=== PATIENT | female | born 1940 | race Caucasian/White ===

== ENCOUNTER 2019-10-25 20:19 | Inpatient (IN) | payer MEDICARE, BC ==
[2019-10-25] VITALS (8 sets, daily range): BP systolic 160–201; BP diastolic 59–71
[~2019-10-25] VITALS: Ht 157.5 cm; Wt 64.1 kg
--- NOTE | 2019-10-25 21:27 | NUR ---
PT GIVEN THIS NITRO AT 2111 WHEN [employer] WAS DOWN.
[2019-10-25 21:38] LABS: CALC OSMOLALITY 300 mosm/kg (275-300); CALCIUM 8.1 mg/dL (8.5-10.1); CARBON DIOXIDE 25.9 mmol/L (21.0-32.0); CHLORIDE - SERUM 110 mmol/L (98-107); CREATININE - SERUM 2.3 mg/dL (0.6-1.3); GLUCOSE 86 mg/dL (74-106); POTASSIUM - SERUM 3.8 mmol/L (3.5-5.1); SODIUM 145 mmol/L (136-145); UREA NITROGEN 49 mg/dL (7-18); eGFR NON AFRICAN AMERICAN 22 mL/min (90-120)
[2019-10-25 21:39] LABS: APTT 27.7 SECONDS (22.8-39.4); INR 0.99 (0.85-1.17)
[2019-10-25 21:55] LABS: ALKALINE PHOSPHATASE 26 U/L (30-120); ALT (SGPT) 25 U/L (10-68); BILIRUBIN - TOTAL 0.14 mg/dL (0.2-1.3); CKMB 2.4 U/L (0.0-3.6); CREATINE KINASE 170 UL (21-215); MAGNESIUM - SERUM 1.8 mg/dL (1.8-2.4); TROPONIN-I 0.041 ng/mL (0.000-0.060)
[2019-10-25 21:56] LABS: BASOPHILS 0.4 % (0-2); EOSINOPHILS 1.4 % (0-7); HEMATOCRIT 27.4 % (36.0-48.0); HEMOGLOBIN 9.2 g/dL (12-16); IMMATURE GRANULOCYTES 0.2 % (0-5); MCH 31.3 pg (26.0-34.0); MCHC 33.6 g/dL (31.0-37.0); MCV 93.2 fL (80.0-100.0); MEAN PLATELET VOLUME 9.6 fL (7.4-10.4); MONOCYTES 7.7 % (2-11); NEUTROPHILS 62.3 % (40-80); PLATELET COUNT 280 10x3/uL (130-400); RBC 2.94 10x6/uL (4.00-5.40); RDW 13.9 % (11.5-14.5)
[2019-10-25] MEDS ORDERED: HYDRALAZINE HCL50 MG PO (22:10)
[2019-10-25] MEDS ORDERED: NORVASC10 MG PO (22:11)
[2019-10-25] MEDS ORDERED: LYRICA75 MG PO (22:11)
[2019-10-25] MEDS ORDERED: LIPITOR20 MG PO (22:11)
[2019-10-25] MEDS ORDERED: ZYLOPRIM300 MG PO (22:12)
[2019-10-25] MEDS ORDERED: HCTZ25 MG PO (22:12)
[2019-10-25] MEDS ORDERED: NOVOLOG100 UNIT/1 SC (22:12)
[2019-10-25] MEDS ORDERED: ASPIRIN EC81 M1 PO (22:13)
[2019-10-25] MEDS ORDERED: FER-IN-SOL DROP50 ML PO (22:13)
[2019-10-25] MEDS ORDERED: BASAGLAR K100 UNIT/1 SC (22:13)
--- NOTE | 2019-10-25 23:27 | NUR ---
PT SLEEPING. THIS NURSE WITNESSING APNIC EPISODES.
[2019-10-26] VITALS (7 sets, daily range): BP systolic 132–206; BP diastolic 52–70; Ht 157.5 cm; Wt 64.1 kg
[2019-10-26] MEDS ORDERED: ACETAMINOPHEN325 MG PO (02:15)
--- NOTE | 2019-10-26 02:55 | NUR ---
RECEIVED REPORT FROM KYLIE PIERRE IN ER AT 0150. ARRIVED TO FLOOR AT 0207 WITH DTR. ALERT AND ORIENTED TO PERSON . LIVES WITH DTR. DTR ANSWERED QUESTIONS ON MEDICATION AND HISTORY. DTR TO STAY IN ROOM WITH MOTHER. IV TO RIGHT HAND SL.. LEFT ARM RESERVED D/T SUBCLAVIAN BLOCKAGE PER DTR. NPO AT THIS TIME PER PROTOCOL. CARDIO CONSULT TOMORROW. DENIES ANY NEEDS AT THIS TIME.
[2019-10-26 07:45] LABS: HEMATOCRIT 26.9 % (36.0-48.0); HEMOGLOBIN 8.9 g/dL (12-16)
[2019-10-26 07:57] LABS: % SATURATION 21 % (15-55); IRON 46 ug/dl (35-150); TOTAL IRON BIND CAPACITY 211 ug/dl (260-445); UNSAT IRON BIND CAPACITY 165 ug/dl (150-375)
--- NOTE | 2019-10-26 08:06 | NUR ---
PT SITTING UP IN BED. PT STATES SHE HAS NO FURTHER NEEDS AT THIS TIME. BED LOW. CL IN REACH. WILL CONTINUE WITH POC.
[2019-10-26 08:20] LABS: CREATINE KINASE 109 UL (21-215); FERRITIN 112 ng/mL (3-244)
--- NOTE | 2019-10-26 10:30 | NUR ---
HAT PLACED IN COMMODE TO COLLECT STOOL SPECIMEN. EXPLAINED TO PT AND PT'S DAUGHTER AND THEY BOTH VERBALIZED UNDERSTANDING.
[2019-10-26 11:36] LABS: CKMB 2.5 U/L (0.0-3.6); CREATINE KINASE 113 UL (21-215); TROPONIN-I 0.048 ng/mL (0.000-0.060)
--- NOTE | 2019-10-26 11:42 | NUR ---
PT'S P 206/70. PAGED KIRTI SHEARER.
--- NOTE | 2019-10-26 11:43 | NUR ---
PT'S BP 206/70. PAGED KIRTI SHEARER.
--- NOTE | 2019-10-26 11:47 | NUR ---
SPOKE WITH KIRTI SHEARER ABOUT PT'S NISSA AND SHE STATES SHE'LL PUT IN ORDERS FOR IV HYDRALAZINE.
[2019-10-26 13:06] LABS: HEMATOCRIT 29.4 % (36.0-48.0); HEMOGLOBIN 9.7 g/dL (12-16)
--- NOTE | 2019-10-26 17:16 | NUR ---
RESTS IN BED WITH FAMILY AT BS. CALL LIGHT IN REACH. WILL CONT. PLAN OF CARE.
[2019-10-26 19:25] LABS: HEMATOCRIT 28.8 % (36.0-48.0); HEMOGLOBIN 9.5 g/dL (12-16)
[2019-10-27] VITALS (13 sets, daily range): BP systolic 98–194; BP diastolic 47–77
--- NOTE | 2019-10-27 02:30 | NUR ---
PTS DAUGHTER ASSISTED PT TO RESTROOM BUT FORGOT WE NEEDED A URINE SAMPLE. REMINDED HER TO LET US KNOW NEXT TIME SHE VOIDS AND WE WILL COME IN TO COLLECT THE SAMPLE. VERBALIZED UNDERSTANDING.
[2019-10-27 05:12] LABS: BASOPHILS 0.2 % (0-2); EOSINOPHILS 1.5 % (0-7); HEMATOCRIT 28.7 % (36.0-48.0); HEMOGLOBIN 9.5 g/dL (12-16); IMMATURE GRANULOCYTES 0.4 % (0-5); LYMPHOCYTES 28.5 % (15-50); MCHC 33.1 g/dL (31.0-37.0); MCV 93.8 fL (80.0-100.0); MEAN PLATELET VOLUME 9.7 fL (7.4-10.4); MONOCYTES 6.3 % (2-11); NEUTROPHILS 63.1 % (40-80); PLATELET COUNT 283 10x3/uL (130-400); RBC 3.06 10x6/uL (4.00-5.40); WBC 8.2 10x3/uL (4.8-10.8)
[2019-10-27 05:41] LABS: ANION GAP 13.5 mmol/L (8-16); CALCIUM 8.3 mg/dL (8.5-10.1); CARBON DIOXIDE 24.4 mmol/L (21.0-32.0); CREATININE - SERUM 2.3 mg/dL (0.6-1.3); MAGNESIUM - SERUM 1.9 mg/dL (1.8-2.4); POTASSIUM - SERUM 3.9 mmol/L (3.5-5.1)
--- NOTE | 2019-10-27 07:30 | NUR ---
A/A/OX4. DENIES ANY PAIN OR NEEDS AT PRESENT TIME AND NO REQUESTS VOICED. SL TO RIGHT HAND AND PATENT WITHOUT REDNESS OR EDEMA AT SITE. ASSESSMENT COMPLETED AND WILL CONTINUE POC.
[2019-10-27 13:23] LABS: HEMATOCRIT 29.3 % (36.0-48.0); HEMOGLOBIN 9.7 g/dL (12-16)
--- NOTE | 2019-10-27 14:12 | NUR ---
REPORT CALLED TO EMILIA IN ICU AND PT TRANSERRED PER W/C TO ROOM 2310. FAMILY MEMBER WITH HER. ALL PERSONAL BELONGINGS MOVED WITH HER.
--- NOTE | 2019-10-27 15:00 | NUR ---
REPORT RECIEVED FROM THE FLOOR. PT HOOKED TO ICU MONITORS. SBP 160. DR WYLIE STATED TO START CARDENE. DENIES PAIN. CALL LIGHT IN REACH. WILL CONT POC.
--- NOTE | 2019-10-27 18:10 | NUR ---
PT LEFT FOR MRI. LEFT IN A STABLE CONDITION.
[2019-10-27 19:49] LABS: HEMATOCRIT 29.6 % (36.0-48.0); HEMOGLOBIN 9.7 g/dL (12-16)
[2019-10-28] VITALS (45 sets, daily range): BP systolic 136–179; BP diastolic 37–75
--- NOTE | 2019-10-28 03:04 | NUR ---
PT HAVING RUNS OF SINUS TACH ON THE MONITOR, WILL CONTINUE TO CLOSELY MONITOR
--- NOTE | 2019-10-28 03:19 | NUR ---
PATIENT RESTING COMFORTABLY - REASSESSMENT COMPLETED SEE FLOWSHEET
[2019-10-28 04:13] LABS: BASOPHILS 0.3 % (0-2); EOSINOPHILS 2.9 % (0-7); HEMATOCRIT 29.3 % (36.0-48.0); HEMOGLOBIN 9.6 g/dL (12-16); IMMATURE GRANULOCYTES 0.4 % (0-5); LYMPHOCYTES 24.9 % (15-50); MCHC 32.8 g/dL (31.0-37.0); MCV 94.5 fL (80.0-100.0); MEAN PLATELET VOLUME 9.6 fL (7.4-10.4); MONOCYTES 7.8 % (2-11); NEUTROPHILS 63.7 % (40-80); PLATELET COUNT 300 10x3/uL (130-400); RDW 13.8 % (11.5-14.5)
[2019-10-28 06:07] LABS: ANION GAP 15.2 mmol/L (8-16); CALCIUM 8.3 mg/dL (8.5-10.1); CARBON DIOXIDE 22.6 mmol/L (21.0-32.0); CREATININE - SERUM 2.8 mg/dL (0.6-1.3); MAGNESIUM - SERUM 1.9 mg/dL (1.8-2.4); POTASSIUM - SERUM 3.8 mmol/L (3.5-5.1)
--- NOTE | 2019-10-28 06:17 | NUR ---
PT SET UP AND INSTRUCTED ON HOW TO GIVE SELF CHG BATH. BEDPAN PROVIDED PRIOR TO BATH. PATIENT INDENPENDENT ADLS. PROVIDED A FRESH DRINKING WATER PER REQUEST. VSS CPOC
--- NOTE | 2019-10-28 08:29 | NUR ---
0700 PT RECIEVED ALERT AND ORIENTED ON ROOM AIR R HAND PIV WITH NS AND CARDENE INFUSING, DENIES PAIN AND ALL NEEDS 0820 AM MEDS GIVEN, BREAKFAST PROVIDED, WILL CONTINUE TO MONITOR
--- NOTE | 2019-10-28 09:20 | NUR ---
SPOKE WITH CHINYERE PATEL ABOUT BRADYCARDIA AND LOPRESSOR, DOSE ON LOPRESSOR CHANGED AND GIVEN WITH HR IN 50S PER CHINYERE
--- NOTE | 2019-10-28 12:22 | NUR ---
NUTRITION F/U PT SITTING UP IN BED EATING LUNCH. REPORTS GOOD APPETITE AND PO INTAKE. WILL CONTINUE TO PROVIDE RENAL ADA DIET, MONITOR INTAKE. RD FOLLOWING
[2019-10-28 13:03] LABS: HEMATOCRIT 28.8 % (36.0-48.0); HEMOGLOBIN 9.5 g/dL (12-16)
--- NOTE | 2019-10-28 14:36 | CN ---
PATIENT NAME:MARY MABRY MEDICAL RECORD: [id number] : 36 LOCATION:NEWD.2310 ADMIT DATE: 10/27/19 ACCOUNT: [id number] CONSULTING PHYSICIAN: SARAY PATEL MD REFERRING PHYSICIAN: RIMA WYLIE MD DATE OF CONSULTATION: 10/26/2019 CARDIOLOGY CONSULTATION ADMITTING DIAGNOSES: 1. Chest pain. 2. Hypertension. 3. Tachycardia. 4. Diabetes. 5. Hyperlipidemia. 6. Dementia. HISTORY OF PRESENT ILLNESS: Mrs. Mabry was brought in by her family for chest pain. She has had a history of chest pain. She had a normal cardiac catheterization within the last year in [place], which is where she was previously from, she is now relocated to be by her daughter here in [place]. She has been markedly hypertensive and tachycardic with systolic blood pressure in the 180-200 range and heart rates in the 100 range. She is on Norvasc and hydralazine for blood pressure. PHYSICAL EXAMINATION: CONSTITUTIONAL/GENERAL APPEARANCE: Well nourished, well developed, appears stated age. EYES: Lids and conjunctivae noninjected. No discharge. No pallor. ENT: Lips within normal limit. No cyanosis. No pallor. NECK: Carotid arteries, bilateral normal upstroke. No bruits. No thrills. No jugular venous pressure or distention. CERVICAL LYMPH NODES: Nontender. Nonenlarged. THYROID: Not enlarged. No nodules. CARDIOVASCULAR: Precordial exam, nondisplaced. No heaves or pericardial thrills. Rate and rhythm, regular. Heart sounds, normal S1, normal S2. No S3, no gallop, no rub. Systolic murmur, not heard. Diastolic murmur, not heard. RESPIRATORY: Respiratory effort, unlabored. Normal curvature. No thoracic deformity. No chest wall tenderness. Percussion, resonant. Auscultation, clear. No wheezes, no rales, no rhonchi. ABDOMEN: Soft, nondistended, nontender. No abdominal pain, no vomiting and normal appetite. MUSCULOSKELETAL: No joint tenderness, normal gait, normal tone. SKIN: Warm and dry. OVERALL IMPRESSION: Chest pain, normal troponin, normal EKG, normal cardiac catheterization within the past year. This is all secondary to out of control hypertension. She needs a beta kye to control the heart rate and blood pressure. We will start Lopressor 100 mg b.i.d. Only cardiac workup will be an echocardiogram. Further care depends upon the results with the beta kye. TRANSINT:[id number] Voice Confirmation ID: [id number] DOCUMENT ID: [id number] CONSULT REPORT [id number] MARY MABRY JEFFREY MD at 1436 CC: [id number] DICTATION DATE: 10/26/19 08 CABLE DISPATCHER: 10/26/19 1311 ADM IN [facility] [address] [place] [address]
--- NOTE | 2019-10-28 14:36 | EC ---
PATIENT:MARY MABRY DATE OF SERVICE: 10/26/19 SEX: F MEDICAL RECORD: [id number] DATE OF : 36 LOCATION:[facility] D231 AGE OF PATIENT: 79 ADMISSION DATE: 10/27/19 REFERRING PHYSICIAN: INTERPRETING PHYSICIAN: SARAY VALLE MD ECHOCARDIOGRAM REPORT ECHO CHARGES 4 ECHO COMPLETE Date: 10/26/19 CLINICAL DIAGNOSIS: CP ECHOCARDIOGRAPHIC MEASUREMENTS (adult normal given) AC root (d.<3.7cm) 3.4 cm LV Septum d (<1.2 cm> 1.7 cm Valve Excursion 2.0 cm LV Septum (systole) 2.3 cm Left Atria (s.<4.0cm> 4.5 cm LVPW d(<1.2cm) 1.6 cm RV (d.<2.3cm) 2.4 cm LVPW (sytole) 2.3 cm LV diastole(<5.6CM) 4.6 cm MV E-F(>70mm/sec) cm LV systole 2.1 cm LVOT Diameter 1.8 cm MV exc.(>10mm) cm Est.ejection fraction (50-75%) % DOPPLER: LVIT cm/sec A 165 cm/sec E 136 cm/sec LA cm/sec RVSP 33.0 mmHg LVOT 107 cm/sec AOP1/2T m/s Asc. Ao 146 cm/sec RVOT 91.0 cm/sec RA cm/sec PA 107 cm/sec AV Gradient Peak 8.5 mmHg AV Mean 4.5 mmHg AV Area 1.5 cm MV Gradient Peak 12.0 mmHg MV Mean 2.8 mmHg MV Area cm COMMENTS: Pastrycook'S Assistant: 1 JENN JOHNSONOE Bearing Inspector: 1 Dr. Valle TAPE# PACS Pericardial Effusion N DATE OF SERVICE: 10/26/2019 PROCEDURE: Echocardiogram. FINDINGS: 1. Left ventricular chamber size is within normal limits. Left ventricular systolic function is normal. Overall ejection fraction estimated at 60%. 2. Left atrium is enlarged at 4.5 cm. Right atrium and right ventricle chamber sizes are within normal limits. 3. Valvular structures have normal structure and motion. ECHOCARDIOGRAM REPORT [id number] MARY MABRY 4. Doppler interrogation reveals mild mitral regurgitation, mild tricuspid regurgitation, no other valvular insufficiency or stenosis. Pulmonary systolic pressure estimated at 34 mmHg. 5. No evidence of pericardial effusion or left ventricular thrombus. TRANSINT:[id number] Voice Confirmation ID: [id number] DOCUMENT ID: [id number] SARAY VALLE MD at 1436 CC: [id number] DICTATION DATE: 10/26/19 1540 DIRECTOR PAID MEDIA: 10/26/19 1651 ADM IN [facility] [address] [place] [address]
--- NOTE | 2019-10-28 15:06 | NUR ---
AWAITING CARDENE FROM PHARMACY
--- NOTE | 2019-10-28 15:24 | NUR ---
PT ARRIVED FROM ER SEDATED ON VENT ETT 7.5 24 AT [facility] R CHEST INFUSAPORT DRESSING CDI WITH PROPOFOL 20MCG INFUSING, L AC PIV SL, WHITE CATH DRAINING YELLOW URINE, DR WYLIE AWARE OF PTS ARRIVAL DR VELASCO AWARE OF CONSULT
--- NOTE | 2019-10-28 16:59 | NUR ---
PT USING BEDPAN AND PULLED OUT IV, 22G PIV TO R WRIST INSERTED X1 ATTEMPT
--- NOTE | 2019-10-28 18:15 | NUR ---
SPOKE WITH DR WYLIE ABOUT BPS AFTER STOPPING CARDENE GTT, STATED BP WAS OK IN 150-160S AND TO NOT GIVE PRN BP MEDS OR RESTART CARDENE AND TO CALL TONIGHT IF BP STAYS ELEVATED
--- NOTE | 2019-10-28 19:10 | NUR ---
PT C/O BACK PAIN, SEE EMAR FOR PAIN SCALE, REPOSITONED FOR COMFORT. NOTICED INCREASED ANXIETY AND AGITATION. HX OF DEMENTIA, PT UNABLE TO STATE NEEDS JUST REPEATS "I DONT KNOW' OVER AND OVER, SHIFT ASSESSMENT COMPLETED SYSTOLIC BP 160 NOTED. WILL CONTINUE TO MONITOR
--- NOTE | 2019-10-28 19:22 | NUR ---
PRN TYLENOL GIVEN AT THIS TIME
--- NOTE | 2019-10-28 20:04 | MORECARE ---
CASE MANAGEMENT DISCHARGE SUMMARY PATIENT: MARY MABRY UNIT: [id number] ADM DATE: 10/27/19 AGE: 79 : 38 SEX: F ROOM/BED: D.2310 AUTHOR: ANH LEE PHYSICIAN: REFERRING PHYSICIAN: RIMA WYLIE MD DATE OF SERVICE: 10/28/19 Discharge Plan Patient Name: MARY MABRY Facility: [facility]:[place] : 1940 Planned Disposition: Anticipated Discharge Date: Discharge Date: Expected LOS: Initial Reviewer: [email or web address] Initial Review Date: 10/28/2019 Generated: 10/28/19 9:03 pm Coverage Notice Reviewer: [email or web address] Rachael Headley Notice Issued Date-Time: 10/26/2019 9:50 Notice Type: Medicare Outpatient Observation Notice Notice Delivered To: Patient Relationship to Patient: Slice Cutting Machine Operator Helper Name: Delivery Method: HAND - Hand Delivered Cadence Days: Prior Verbal Notification: Recipient Understood Notice: Yes Recipient Signature: Yes Med Rec Note Co-signed by Attending: Coverage Notice Comment: LIGHT SERVED, EXPLAINED, SIGNED BY PATIENT AND ORIGINAL PROVIDED AND COPY PLACED ON CHART. Patient Name: MARY MABRY Page [phone] at 2004 All edits/amendments must be made on the electronic document DICTATION DATE: 10/28/192003 SALES APPLICATIONS ENGINEER: RAUL 10/28/192003 RPT#: [id number] DC DATE: STATUS: ADM IN [facility] [address] [place] [address] END OF REPORT
--- NOTE | 2019-10-28 20:11 | MORECARE ---
CASE MANAGEMENT DISCHARGE SUMMARY PATIENT: MARY MABRY UNIT: [id number] ADM DATE: 10/27/19 AGE: 79 : 38 SEX: F ROOM/BED: D.2310 AUTHOR: JESUS,DOC PHYSICIAN: REFERRING PHYSICIAN: RIMA WYLIE MD DATE OF SERVICE: 10/28/19 Discharge Plan Patient Name: MARY MABRY Facility: [facility]:[place] : 1940 Planned Disposition: Anticipated Discharge Date: Discharge Date: Expected LOS: Initial Reviewer: [email or web address] Initial Review Date: 10/28/2019 Generated: 10/28/19 9:11 pm Comments DCP- Discharge Planning Updated by [email or web address]: Shannon Singleton on 10/28/19 7:[address] Patient Name: MARY MABRY Admission Status: ER Accout number: [id number] Admission Date: 10-27-2019 : 1940 Admission Diagnosis: Attending: RIMA WYLIE Current LOS: 1 Anticipated DC Date: Planned Disposition: Primary Insurance: MEDICARE A & B Discharge Planning Comments: CM met with patient to complete initial dc planning assessment. CM educated patient on the CM role and verbal consent given by patient to complete assessment. Patient lives at home with her daughter where she is independent with her care. At discharge patient plans to return home and feels this is a safe discharge. CM discussed availability of home health, rehab services, and medical equipment. Her daughter will be her stacker driver home. Patient denied known discharge needs at this time. CM will continue to follow and will assist as needed with dc plans/needs. National Secretary: Shannon Singleton DCPIA - Discharge Planning Initial Assessment Updated by [email or web address]: Shannon Singleton on 10/28/19 8:04 pm * Is the patient Alert and Oriented? Yes * How many steps to enter\exit or inside your home? ramp * PCP [facility] * Pharmacy [facility] * Preadmission Environment Home with Family * ADLs Independent * Equipment Walker * List name and contact numbers for known caregivers / representatives who currently or will assist patient after discharge: APOLINAR SIFUENTES - DAUGHTER - [phone] * Verbal permission to speak to the caregivers and representatives has been obtained from the patient. Yes * Community resources currently utilized None * Additional services required to return to the preadmission environment? No * Can the patient safely return to the preadmission environment? Yes * Has this patient been hospitalized within the prior 30 days at any hospital? No Coverage Notice Reviewer: [email or web address] Rachael Headley Notice Issued Date-Time: 10/26/2019 9:50 Notice Type: Medicare Outpatient Observation Notice Notice Delivered To: Patient Relationship to Patient: Entry Level Administrative Assistant Name: Delivery Method: HAND - Hand Delivered Cadence Days: Prior Verbal Notification: Recipient Understood Notice: Yes Recipient Signature: Yes Med Rec Note Co-signed by Attending: Coverage Notice Comment: LIGHT SERVED, EXPLAINED, SIGNED BY PATIENT AND ORIGINAL PROVIDED AND COPY PLACED ON CHART. Last DP export: 10/28/19 7:04 p Patient Name: MARY MABRY Page [phone] at 2010 All edits/amendments must be made on the electronic document DICTATION DATE: 10/28/192010 RUSTIC TERRAZZO SETTER: RAUL 10/28/192010 RPT#: [id number] DC DATE: STATUS: ADM IN [facility] [address] [place] [address] END OF REPORT
--- NOTE | 2019-10-28 20:34 | NUR ---
IV S/L STARTED TO RIGHT FOREARM X 1 ATTEMPT, FLUSHED WELL, SITE SECURED WITH TEGRADERM
--- NOTE | 2019-10-28 20:46 | NUR ---
HS MEDICATIONS RECEIVED DTR AT BEDSIDE, PATIENT RESTING MORE COMFORTABLY AT THIS TIME
[2019-10-28 20:55] LABS: HEMOGLOBIN 9.4 g/dL (12-16)
--- NOTE | 2019-10-28 22:12 | NUR ---
SPOKE WITH DR WYLIE REGARDING PATIENT BP STATUS, NEW ORDERS RECEIVED
--- NOTE | 2019-10-28 22:50 | NUR ---
REASSESSMENT COMPLETED SEE FLOWSHEET
[2019-10-29] VITALS (19 sets, daily range): BP systolic 152–183; BP diastolic 45–94
--- NOTE | 2019-10-29 03:17 | NUR ---
PATIENT RESTING COMFORTABLY - NO ACUTE DISTRESS NOTED EVEN RISE AND FALL OF CHEST BED AT LOWEST POSITION CALL WONG IN REACH 2X SIDE RAIL FOR SAFETY. VSS CPOC
[2019-10-29 03:58] LABS: BASOPHILS 0.2 % (0-2); EOSINOPHILS 1.9 % (0-7); HEMATOCRIT 29.4 % (36.0-48.0); HEMOGLOBIN 9.6 g/dL (12-16); IMMATURE GRANULOCYTES 0.8 % (0-5); LYMPHOCYTES 19.6 % (15-50); MCH 30.7 pg (26.0-34.0); MCHC 32.7 g/dL (31.0-37.0); MCV 93.9 fL (80.0-100.0); MEAN PLATELET VOLUME 9.4 fL (7.4-10.4); MONOCYTES 7.3 % (2-11); NEUTROPHILS 70.2 % (40-80); PLATELET COUNT 302 10x3/uL (130-400); RBC 3.13 10x6/uL (4.00-5.40); RDW 13.7 % (11.5-14.5); WBC 10.2 10x3/uL (4.8-10.8)
[2019-10-29 04:14] LABS: ANION GAP 11.7 mmol/L (8-16); CALCIUM 8.2 mg/dL (8.5-10.1); CREATININE - SERUM 2.7 mg/dL (0.6-1.3); MAGNESIUM - SERUM 1.9 mg/dL (1.8-2.4); POTASSIUM - SERUM 3.7 mmol/L (3.5-5.1)
--- NOTE | 2019-10-29 06:33 | NUR ---
PATIENT RESTING COMFORTABLY VSS CPOC
--- NOTE | 2019-10-29 07:41 | NUR ---
PT UNRESPONSIVE - SLIGHT RESPONSE TO STERNAL RUB - DOES NOT FOLLOW COMMANDS, DR WYLIE CONTACTED AT THIS TIME NEW ORDERS RECEIVED
--- NOTE | 2019-10-29 08:26 | NUR ---
PT AWAKE IN BED AT THIS TIME, FAMILY AT BEDSIDE, UPDATES PROVIDED. PT CURRENT NEURO CHECKS NOTED PT TO BE ALERT TO SELF AND TIME, STRENGTHS EVEN, PUPILS PERRLA, AND TOUNGUE MIDLINE. WILL CONTINUE TO CLOSELY OBSERVE.
--- NOTE | 2019-10-29 08:33 | NUR ---
PTS DAUGHTER STATES SHE WISHES HER MOTHER TO BE A DNI. SHE STATES SHE UNDERSTANDS ALL OTHER EMERGENT MEASURES AND IS OKAY WITH IT BUT DOES NOT WANT HER MOTHER INTUBATED. WILL NOTIFY DR WYLIE OF THIS.
--- NOTE | 2019-10-29 10:20 | NUR ---
LYING IN BED RESTING AT THIS TIME. VSS. NO ACUTE DISTRESS NOTED. PT AWAKENS EASILY WHEN SPOKEN TO. WILL CONTINUE PLAN OF CARE.
--- NOTE | 2019-10-29 12:08 | NUR ---
ATTEMPTED TO CALL DR WYLIE X 2 ATTEMPTS; CALL WENT STRAIGHT TO VOICEMAIL; CALLED [facility] WHO CONFIRMED THAT DR WYLIE IS MANAGER BILLING. WILL ATTEMPT TO CALL AGAIN. VSS. WILL CONTINUE PLAN OF CARE.
--- NOTE | 2019-10-29 13:56 | NUR ---
DR WYLIE HERE, HAS SEEN PT. STATED WILL PLACE ORDERS. ALSO NOTED EDEMA TO RT ARM; PHYSICIAN STATED WILL PLACE ORDERS REGARDING THIS WELL.
[2019-10-29 14:40] LABS: HEMATOCRIT 28.6 % (36.0-48.0); HEMOGLOBIN 9.6 g/dL (12-16)
--- NOTE | 2019-10-29 15:39 | NUR ---
CHG BATH OFFERED AT THIS TIME; PT REFUSED STATING "NOT RIGHT NOW." VSS. NO ACUTE DISTRESS NOTED. WILL CONTINUE PLAN OF CARE.
--- NOTE | 2019-10-29 17:00 | NUR ---
PT NOTED MORE LETHARGIC AT THIS TIME, SLEEPING. UNABLE TO WAKE PT UP. PT WILL FACIAL GRIMACE TO PAIN BUT NOT WAKING UP AND NOT TALKING. DR WYLIE CALLED TO NOTIFY OF THIS, STATED TO DO A STAT ABG.
--- NOTE | 2019-10-29 17:45 | NUR ---
PT AWAKE AT THIS TIME VISITING WITH FAMILY. DENIES ANY NEEDS. VSS. ALSO NOTED PT TO TRANSFER TO ROOM 2130, WILL TRANSFER PT SHORTLY.
--- NOTE | 2019-10-29 17:57 | NUR ---
REPORT CALLED TO RECIEVING NURSE, WILL TRANSFER PT SHORTLY.
--- NOTE | 2019-10-29 18:20 | NUR ---
PT NO VOID THIS SHIFT, BLADDER SCAN PERFORMED; SHOWED 931MLS. WHITE PLACED PER ORDERS, 18F; 900 ML YELLOW URINE NOTED INTO CLOSED CONTAINER.
--- NOTE | 2019-10-29 18:48 | NUR ---
PT ARRIVED TO FLOOR VIA BED. PT HAD WHITE CATHETER PLACED BEFORE BEING BROUGHT OVER BECAUSE SHE WAS RETAINING 900ML PER ICU NURSE. I VERBALIZED UNDERSTANDING.
[2019-10-29 19:21] LABS: BILIRUBIN NEGATIVE (NEGATIVE); GLUCOSE 250 mg/dL (NEGATIVE); KETONE NEGATIVE (NEGATIVE); NITRITE NEGATIVE (NEGATIVE); UROBILINOGEN NORMAL (NORMAL)
[2019-10-29 19:22] LABS: BACTERIA MODERATE /hpf (NEGATIVE); EPITHELIAL CELLS 0-5 /hpf (0-5); RED CELLS - URINE 0-5 /hpf (0-5)
--- NOTE | 2019-10-29 19:48 | NUR ---
RECEIVED REPORT, WILL ASSUME CARE OF PT, SLEEPING, NO DISTRESS NOTICED AT THIS TIME, BED IS LOW, SRX3, CALL LIGHT IN REACH, WILL CONTINUE PLAN OF CARE, BED ALARM IS ON
[2019-10-29 21:28] LABS: HEMATOCRIT 28.6 % (36.0-48.0); HEMOGLOBIN 9.5 g/dL (12-16)
[2019-10-30] VITALS: BP 168/40
[2019-10-30 04:00] VITALS: BP 176/46
--- NOTE | 2019-10-30 05:11 | NUR ---
I have reviewed this patient and I concur with the Shift Assessment completed by the Licensed Practical Nurse today this shift.
[2019-10-30 05:53] LABS: BASOPHILS 0.2 % (0-2); EOSINOPHILS 1.2 % (0-7); HEMATOCRIT 27.7 % (36.0-48.0); HEMOGLOBIN 9.2 g/dL (12-16); IMMATURE GRANULOCYTES 0.4 % (0-5); LYMPHOCYTES 15.4 % (15-50); MCH 31.1 pg (26.0-34.0); MCHC 33.2 g/dL (31.0-37.0); MCV 93.6 fL (80.0-100.0); MEAN PLATELET VOLUME 9.9 fL (7.4-10.4); MONOCYTES 5.3 % (2-11); NEUTROPHILS 77.5 % (40-80); PLATELET COUNT 278 10x3/uL (130-400); RBC 2.96 10x6/uL (4.00-5.40); WBC 11.1 10x3/uL (4.8-10.8)
[2019-10-30 06:02] LABS: ANION GAP 12.9 mmol/L (8-16); CALCIUM 8.2 mg/dL (8.5-10.1); CARBON DIOXIDE 23.8 mmol/L (21.0-32.0); CREATININE - SERUM 2.8 mg/dL (0.6-1.3); MAGNESIUM - SERUM 2.1 mg/dL (1.8-2.4); POTASSIUM - SERUM 3.7 mmol/L (3.5-5.1)
--- NOTE | 2019-10-30 07:15 | NUR ---
PT AWAKE AND ORIENTED, SISTER AT BEDSIDE ASKING HOW TO GET TESTED FOR THE FLU. INFORMED HER SHE WOULD HAVE TO GO TO A CLINIC, HER PCP, OR THE ER. THAT WE COULD NOT ORDER ONE FOR HER. CL IN REACH, SRX2. ALL QUESTIONS ANSWERD TO THE BEST OF MY ABILITY.
[2019-10-30 08:30] VITALS: BP 188/57
[2019-10-30 12:59] VITALS: BP 165/61
[2019-10-30 13:12] LABS: HEMATOCRIT 28.4 % (36.0-48.0); HEMOGLOBIN 9.5 g/dL (12-16)
--- NOTE | 2019-10-30 16:16 | NUR ---
I have reviewed this patient and I concur with the Shift Assessment completed by the Licensed Practical Nurse today this shift.
[2019-10-30 17:25] VITALS: BP 162/44
--- NOTE | 2019-10-30 18:34 | NUR ---
PT IS ALERT AND ORIENTED, FALLS ASLEEP EASILY. UP WITH STANDBY ASSIST, WALKED WELL TO TOILET. CL IN REACH, SRX2, DAUGHTER AT BEDSIDE.
--- NOTE | 2019-10-30 19:30 | NUR ---
RECEIVED REPORT, WILL ASSUME CARE OF PT, SLEEPING, NO DISTRESS NOTICED AT THIS TIME, BED IS LOW, SRX2, CALL LIGHT IN REACH, WILL CONTINUE PLAN OF CARE
[2019-10-30 21:47] LABS: HEMATOCRIT 27.2 % (36.0-48.0); HEMOGLOBIN 9.1 g/dL (12-16)
[2019-10-30 22:01] VITALS: BP 177/41
[2019-10-31 01:21] VITALS: BP 141/40
[2019-10-31 05:21] VITALS: BP 157/47
[2019-10-31 05:36] LABS: BASOPHILS 0.1 % (0-2); EOSINOPHILS 2.1 % (0-7); HEMATOCRIT 22.6 % (36.0-48.0); HEMOGLOBIN 7.6 g/dL (12-16); IMMATURE GRANULOCYTES 0.5 % (0-5); LYMPHOCYTES 21.7 % (15-50); MCHC 33.6 g/dL (31.0-37.0); MCV 92.2 fL (80.0-100.0); MEAN PLATELET VOLUME 10.3 fL (7.4-10.4); NEUTROPHILS 67.6 % (40-80); RBC 2.45 10x6/uL (4.00-5.40); RDW 13.7 % (11.5-14.5); WBC 8.6 10x3/uL (4.8-10.8)
[2019-10-31 05:51] LABS: PLATELET COUNT 209 10x3/uL (130-400)
[2019-10-31 06:05] LABS: ANION GAP 13.7 mmol/L (8-16); CALCIUM 7.9 mg/dL (8.5-10.1); CARBON DIOXIDE 22.3 mmol/L (21.0-32.0); CREATININE - SERUM 2.8 mg/dL (0.6-1.3)
--- NOTE | 2019-10-31 06:12 | NUR ---
I have reviewed this patient and I concur with the Shift Assessment completed by the Licensed Practical Nurse today this shift.
--- NOTE | 2019-10-31 07:36 | NUR ---
PT RESTING PEACEFULLY, SNORING. NOSIGNS OR SYMPTOMS OF ACUTE DISTRESS NOTED AT THIS TIME. CL IN REACH, SRX2.
[2019-10-31 09:01] VITALS: BP 153/44
--- NOTE | 2019-10-31 10:12 | NUR ---
PT TAKEN TO MRI. NO FAMILY IN ROOM. CL IN REACH, SRX2.
[2019-10-31 13:32] LABS: HEMATOCRIT 25.2 % (36.0-48.0); HEMOGLOBIN 8.5 g/dL (12-16)
[2019-10-31 16:46] VITALS: BP 150/47
--- NOTE | 2019-10-31 19:22 | NUR ---
ASSURED PT OF A FEW FEARS AND ASSISTED WITH COMFORT BED LOW AND LOCKED AND EDUCATED SOLUTION DESIGN ENGINEER LIGHT USE BED IS LOW AND LOCKED AND CALL LIGHT IS WITH PT
[2019-10-31 20:23] VITALS: BP 152/42
--- NOTE | 2019-10-31 21:10 | NUR ---
REFUSES GLUCOSE CHECK " IM NOT TREATING IT ANYWAY"
[2019-11-01] VITALS (10 sets, daily range): BP systolic 105–155; BP diastolic 9–45
--- NOTE | 2019-11-01 04:21 | NUR ---
I have reviewed this patient and I concur with the Shift Assessment completed by the Licensed Practical Nurse today this shift.
[2019-11-01 05:49] LABS: BASOPHILS 0.1 % (0-2); EOSINOPHILS 2.6 % (0-7); HEMATOCRIT 23.5 % (36.0-48.0); IMMATURE GRANULOCYTES 0.4 % (0-5); LYMPHOCYTES 16.9 % (15-50); MCH 30.9 pg (26.0-34.0); MCV 90.7 fL (80.0-100.0); PLATELET COUNT 208 10x3/uL (130-400); RBC 2.59 10x6/uL (4.00-5.40); RDW 13.4 % (11.5-14.5)
[2019-11-01 06:00] LABS: ANION GAP 13.5 mmol/L (8-16); CALCIUM 7.8 mg/dL (8.5-10.1); CARBON DIOXIDE 22.2 mmol/L (21.0-32.0); CREATININE - SERUM 2.6 mg/dL (0.6-1.3); MAGNESIUM - SERUM 1.9 mg/dL (1.8-2.4); POTASSIUM - SERUM 3.7 mmol/L (3.5-5.1)
--- NOTE | 2019-11-01 07:31 | NUR ---
PT LYING IN BED. O2 AT 3L VIA NC. EYES CLOSED. CHEST RISING AND FALLING. BED ALARM ON. BED LOW. CL IN REACH. WILL CONTINUE WITH POC.
--- NOTE | 2019-11-01 11:47 | NUR ---
ELECTRICAL PROSPECTING OPERATOR ALERTED ANOTHER NURSE PT'S HR DROPPED TO 30. PT RESTING. ANOTHER NURSE WOKE PT UP AND SHE STATES SHE FEELS "TACHY". THIS NURSE CAME IN ROOM AND PT'S HR NOW AT 39. PAGE DR. PATEL.
--- NOTE | 2019-11-01 11:52 | NUR ---
CALLED MANUFACTURING SUPERVISOR AND THEY STATED DR. PATEL IS SCRUBBED IN RIGHT NOW. I STATED THIS PT'S HR DROPPED TO 30 AND NOW IT IS AT 37. THEY STATED THEY WILL TELL HIM.
--- NOTE | 2019-11-01 12:02 | NUR ---
NO RESPONSE FROM DR. PATEL. RAPID RESPONSE CALLED. ICU NURSE AT 1204 CALLED AND SPOKE WTIH DR. HERNANDEZ AND HE STATES TO ORDER IV PUSH ONE TIME ATROPINE. ICU NURSE THEN CALLED ADULT NURSE PRACTITIONER AND DR. PATEL STATES TO GIVE ATROPINE. ICU NURSE GAVE ATROPINE HR NOW AT 51. BP 109/35. PT STATES SHE JUST FEELS "YOUCKY." KIRTI DEWITT AND DR. ELLIS RESPONDED TO RAPID RESPONSE AND DR. ELLIS STATES TO JUST GIVE ATROPINE AND CONTINUE TO MONITOR PT. WE VERBALIZED UNDERSTANDING. ICU NURSE STATES PT'S HR PROBABLY WON'T GO OVER 50 BUT IF IT GETS INTO THE 30'S AGAIN TO CALL CARDIOLOGY. I VERBALIZED UNDERSTANDING. RAPID RESPONSE ENDED 1218.
--- NOTE | 2019-11-01 12:26 | NUR ---
PT'S STATES SHE IS FEELING A LITTLE BIT BETTER. PT SITTING UP EATING LUNCH TRAY. WILL CALL PT'S DAUGHTER AND LET HER KNOW RAPID RESPONSE WAS CALLED. WILL CONTINUE TO MONITOR PT. BED LOW. CL IN REACH. BED ALARM ON.
--- NOTE | 2019-11-01 12:31 | NUR ---
SPOKE WITH PT'S DAUGHTER APOLINAR AND LET HER KNOW WHAT HAPPENED AND THAT RAPID RESPONSE WAS CALLED. SHE VERBALIZED UNDERSTANDING AND STATES "THANK YOU FOR TAKING SUCH GREAT CARE OF HER. I'LL BE UP THEIR SOON I'M GONNA TAKE MY LUNCH BREAK." I VERBALIZED UNDERSTANDING.
--- NOTE | 2019-11-01 14:47 | NUR ---
Nutrition Follow-up: Eating "not real well". Observed majority of lunch untouched. Noted rapid response called this AM. Diet: Renal ADA Wt: 147.7# (11/01); 130# (10/28) Last BM: 11/01 Labs noted: Na 134, Glu 132, Ca 7.8, K+ 3.7 Meds noted: Protonix -MD may consider liberalizing to cardiac diabetic diet (K+ 3.7). -Will send Nepro with dinner tonight for pt trial. -MD may consider appetite stimulant. -Monitor wt; noted daily wts ordered. -RD following.
--- NOTE | 2019-11-01 15:06 | NUR ---
ROBINSON DEWITT FROM CARDIOLOGY STATES TO HOLD THIS 1500 DOSE OF CARDENE. I VERBALIZED UNDERSTANDING.
--- NOTE | 2019-11-01 19:23 | NUR ---
PT IS CONFUSED FAMILY PRESENT AT THIS TIME ASSISTED UP TO RESTROOM WITH FORMED BM AND BACK TO BED WITH BED LOW AND LOCKED AND SRX3 CALL LIGHT IN REACH WHITE TO GRAVITY
[2019-11-02 00:09] VITALS: BP 151/53
--- NOTE | 2019-11-02 00:10 | NUR ---
PT TRANSFERED TO ICU VIA STRECHER TO ROOM 2310. FAMILY NOTIFIED. BLOOD PRESSURE 108/40 RR 20 HEART RATE 36 PULSE OX 99.
--- NOTE | 2019-11-02 03:31 | NUR ---
I have reviewed this patient and I concur with the Shift Assessment completed by the Licensed Practical Nurse today this shift.
[2019-11-02 06:06] LABS: ANION GAP 14.7 mmol/L (8-16); CALCIUM 8.2 mg/dL (8.5-10.1); CARBON DIOXIDE 20.9 mmol/L (21.0-32.0); CREATININE - SERUM 2.3 mg/dL (0.6-1.3); MAGNESIUM - SERUM 2.1 mg/dL (1.8-2.4); POTASSIUM - SERUM 3.6 mmol/L (3.5-5.1)
[2019-11-02 06:24] VITALS: BP 151/52
[2019-11-02 06:52] LABS: BASOPHILS 0.3 % (0-2); EOSINOPHILS 2.9 % (0-7); HEMATOCRIT 24.1 % (36.0-48.0); HEMOGLOBIN 8.1 g/dL (12-16); IMMATURE GRANULOCYTES 0.3 % (0-5); LYMPHOCYTES 21.9 % (15-50); MCH 30.9 pg (26.0-34.0); MCHC 33.6 g/dL (31.0-37.0); MEAN PLATELET VOLUME 10.4 fL (7.4-10.4); MONOCYTES 8.5 % (2-11); NEUTROPHILS 66.1 % (40-80); PLATELET COUNT 221 10x3/uL (130-400); RBC 2.62 10x6/uL (4.00-5.40); RDW 13.4 % (11.5-14.5); WBC 6.5 10x3/uL (4.8-10.8)
--- NOTE | 2019-11-02 07:26 | NUR ---
[facility] PROVIDED NURSE WITH PHONE NUMBERS FOR PT'S OUT OF STATE RENAL AND PRIMARY DOCTORS. RENAL DR. MONTOYA [phone] RANDOLPH [phone]
--- NOTE | 2019-11-02 09:30 | NUR ---
PT RESTING COMOFORTABLY IN BED, WITH EYES CLOSED, RESP EVEN AND NOLABORED ON 3LHF. MONITOR SHOWING SB WITH RATE OF 51. WHITE DRAINING YELLOW URINE TO GRAVITY. FAMILY AT BEDSIDE, DO NOT WANT PT TO BE AWAKEN TO TAKE MEDICATIONS NOW, THEY WANT TO WAIT UNTIL SHE WAKES UP. CALL LIGHT IN REACH, NAD NOTED. WILL CONTINUE TO MONITOR.
[2019-11-02 09:32] VITALS: BP 150/52
--- NOTE | 2019-11-02 10:55 | NUR ---
PT FINALLY AWAKE, AM MEDS GIVEN AT THIS TIME. PT A/O X2, RESP EVEN AND NONLABORED ON 2L HF. PT DENIES ANY NEEDS AT THIS TIME. CALL LIGHT IN REACH, NAD NOTED, ZENY CONTINUE TO MONITOR.
[2019-11-02 13:37] VITALS: BP 118/78
--- NOTE | 2019-11-02 15:50 | NUR ---
24HR URINE COLLECTION STARTED. PT DENIES ANY NEEDS AT THIS TIME. CALL LIGHT IN REACH, NAD NOTED, WILL CONTINUE TO MONITOR.
[2019-11-02 16:00] VITALS: BP 180/54
--- NOTE | 2019-11-02 19:57 | NUR ---
PT LYING IN BED ALERT AND HAS SOME CONFUSION. PT HAS BED ALARM ON AND ACTIVE. NO SIGNS OR SYMPTOMS OF DISTRESS NOTED. RESPIRATIONS EVEN AND UNLABORED. NO COMPLAINTS OF PAIN AT THIS TIME. WILL CONTINUE TO MONITOR.
[2019-11-02 21:33] VITALS: BP 191/53
--- NOTE | 2019-11-02 23:35 | NUR ---
PT LYING IN BED LETHARGIC. HEART RATE 38 AND BLOOS PRESSURE IS 45/29. RAPID RESPONSE CALLED. WILL CONTINUE TO MONITOR
[2019-11-03] VITALS (40 sets, daily range): BP systolic 122–225; BP diastolic 44–76
--- NOTE | 2019-11-03 00:30 | NUR ---
PT ARRIVED VIA BED A RN X2 FROM MEDICAL FLOOR. PT LETHARGIC, UNABLE TO FOLLOW COMMANDS OR ANSWER QUESTIONS. BRADYCARDIC, HR 37-40. PULSES PRESENT. BP 122/50. SPO2 97 ON 3L O2 VIA NC. LUNG SOUNDS CLR/DIMINISHED. BOWEL SOUNDS ACTIVE IN ALL QUADRANTS. WHITE CATH INTACT, DRAINAGE BAG ON ICE PER 24H URINE PROTOCOL. BED ALARM ON, ROOM VISIBLE FROM NURSES STATION. WILL CONTINUE TO MONITOR CLOSELY.
--- NOTE | 2019-11-03 05:00 | NUR ---
PT STARTING TO BECOME MORE RESPNSIVE, OPENS EYES WILL ANSWER SOME QUESTIONS. MOVES ALL EXTREMITIES. FAMILY AT BEDSIDE, UPDATE PROVIDED. ROOM VISIBLE FROM NURSES STATION. CPOC.
[2019-11-03 07:06] LABS: ANION GAP 14.4 mmol/L (8-16); CALCIUM 8.6 mg/dL (8.5-10.1); CARBON DIOXIDE 22.3 mmol/L (21.0-32.0); CREATININE - SERUM 2.2 mg/dL (0.6-1.3); MAGNESIUM - SERUM 2.1 mg/dL (1.8-2.4); PHOSPHOROUS 5.6 mg/dL (2.5-4.9); POTASSIUM - SERUM 3.7 mmol/L (3.5-5.1)
[2019-11-03 07:09] LABS: BASOPHILS 0.4 % (0-2); EOSINOPHILS 1.3 % (0-7); HEMOGLOBIN 7.7 g/dL (12-16); IMMATURE GRANULOCYTES 0.4 % (0-5); LYMPHOCYTES 14.5 % (15-50); MCH 30.7 pg (26.0-34.0); MCHC 33.5 g/dL (31.0-37.0); MCV 91.6 fL (80.0-100.0); MONOCYTES 2.7 % (2-11); NEUTROPHILS 80.7 % (40-80); PLATELET COUNT 200 10x3/uL (130-400); RBC 2.51 10x6/uL (4.00-5.40); RDW 13.5 % (11.5-14.5); WBC 5.6 10x3/uL (4.8-10.8)
--- NOTE | 2019-11-03 12:02 | NUR ---
PRBC STARTED. NO S/SX OF REACTION AT THIS TIME. WILL CONT POC.L
[2019-11-03 16:50] LABS: PROTEIN - URINE 168.2 mg/dL (0.0-11.9)
[2019-11-03 16:51] LABS: CREATININE - URINE 33.3 mg/dL (30-125)
--- NOTE | 2019-11-03 18:30 | NUR ---
PT COMPLAINS OF BACK PAIN. NOTIFIED. ABOUT PRESSURE OF /48. PRN MEDS ALREADY GIVEN. NEW ORDERS FOR HYDROMORPHONE MED GIVEN. PT COMPLAINS OF NAUSEA AND VOMITIED. PT CLEANED AND POSITIONED FOR COMFORT.
[2019-11-03 22:51] LABS: HEMOGLOBIN 9.1 g/dL (12-16)
[2019-11-04] VITALS (78 sets, daily range): BP systolic 101–194; BP diastolic 36–85
[2019-11-04 04:45] LABS: BASOPHILS 0.2 % (0-2); EOSINOPHILS 0.2 % (0-7); HEMATOCRIT 23.8 % (36.0-48.0); HEMOGLOBIN 7.9 g/dL (12-16); IMMATURE GRANULOCYTES 0.2 % (0-5); LYMPHOCYTES 10.3 % (15-50); MCHC 33.2 g/dL (31.0-37.0); MCV 90.5 fL (80.0-100.0); MEAN PLATELET VOLUME 10.3 fL (7.4-10.4); MONOCYTES 3.4 % (2-11); NEUTROPHILS 85.7 % (40-80); PLATELET COUNT 181 10x3/uL (130-400); RBC 2.63 10x6/uL (4.00-5.40); RDW 14.3 % (11.5-14.5); WBC 5.8 10x3/uL (4.8-10.8)
[2019-11-04 04:53] LABS: ANION GAP 10.8 mmol/L (8-16); CALCIUM 8.4 mg/dL (8.5-10.1); CREATININE - SERUM 2.3 mg/dL (0.6-1.3); MAGNESIUM - SERUM 1.9 mg/dL (1.8-2.4); POTASSIUM - SERUM 3.8 mmol/L (3.5-5.1)
--- NOTE | 2019-11-04 06:30 | NUR ---
1941-DR. THOMPSON HERE NEW ORDERS, CARDENE STARTED. 1951-PATIENT VOMITING, ZOFRAN GIVEN. 2029-PATIENT STILL NAUSEATED BUT NOT VOMITING AT THIS TIME. 2320- DR. THOMPSON CALLED TO CHECK ON PATIENT. UPDATE GIVEN, NEW ORDERS RECEIVED. 0115-HR DECREASED TO 40-50 BPM. PATIENT SLEEPING SOUNDLY AFTER ZANAFLEX. 05-DR. THOMPSON NOTIFIED OF DECREASED H AND H. NEW ORDERS RECEIVED. 06-RADIOLOGY HERE TO TAKE PATIENT AROUND FOR CT. 06- PATIENT RETURNED TO ROOM 2310.
--- NOTE | 2019-11-04 07:00 | NUR ---
REPORT RECIEVED FROM THE OFF GOING RN. SEE ASSESSMENT IN THE PTS FLOW SHEET. PT SITTING IN BED WITH NO S/SX OF DISTRESS/DISCOMFORT NOTED. CALL LIGHT IN REACH. VSS AT THIS TIME. CALL LIGHT IN REACH. WILL CONT POC.
--- NOTE | 2019-11-04 09:00 | NUR ---
RENAL BI SPECIALIST AT THE PTS BEDSIDE. PT COMPLAINING OF BACK PAIN. BI SPECIALIST RESTARTED PAIN MEDS AND STATED TO NOT GIVE MUSCLE RELAXER AND LYRICA AT THE SAME TIME.
--- NOTE | 2019-11-04 09:28 | NUR ---
DAUGHTER AT THE PTS BEDSIDE. DAUGHTER ASSISTING THE PT EAT HER BREKFAST. PO MEDS TAKEN WITH NO ISSUES. WILL CONT POC.
--- NOTE | 2019-11-04 09:32 | NUR ---
Nutrition follow-up: Diet: Renal PO intake ~50% average of meals; pt with N/V last evening Labs reviewed Wt: 146# RDN following.
--- NOTE | 2019-11-04 10:33 | NUR ---
IR AT THE PTS BEDSIDE.
--- NOTE | 2019-11-04 11:09 | NUR ---
REASSESSMENT COMPLETED. SEE FLOW SHEET. WILL CONT POC.
--- NOTE | 2019-11-04 12:06 | NUR ---
DR HERNANDEZ AT THE PTS BEDSIDE. OK TO TRANSFER TO THE FLOOR. CASE MANAGEMENT WORKING ON IN PATIENT PLACEMENT FOR TREATMENT.
--- NOTE | 2019-11-04 12:29 | NUR ---
DR HERNANDEZ AT THE PTS BEDSIDE. PT SLEEPING VERY DEEPLY AT THE MOMENT. VSS. PT NON SYMPTOMATIC BRADYCARDIA NOTED. LEXI GTT TURNED OFF. WILL CONT POC.
--- NOTE | 2019-11-04 15:25 | NUR ---
PT WOKEN EASLY WITH VERBAL STIUMLI. PT STATED "I FEEL BETTER AFTER MY NAP" WHENEVER ASKED ABOUT HER BACK PAIN, SHE DENIED ANY PAIN AT THE TIME. CALL LIGHT IN REACH. WILL CONT POC.
--- NOTE | 2019-11-04 19:30 | NUR ---
PT IS RESTING IN BED. SHE IS A&OX3. VOICES NO PAIN AT THIS TIME OTHER THAN SHE IS COLD. I PROVIDED WITH A WARM BLANKET. SHE VOICED"THAT IS HEAVEN". VITAL SIGNS ARE STABLE. WILL PERFORM FULL ASSESSMENT AND DOCUMENT. BED IS LOW,SIDE RAILSX2,CALL LIGHT WIHTIN REACH. WILL CONTINUE TO MONITOR
--- NOTE | 2019-11-04 22:09 | NUR ---
PT IS RESTING IN BED. GAVE MEDS PER ORDER ON NOV. HELD DOXAZOSIN DUE TO HR OF ONLY 50. ALSO WAITING TO GIVE PT ZANAFLEX DUE TO GETTING IN REPORT THAT THE PT DOES NOT SEEM TO DO WELL MENTALLY AND PHSYICALLY WHEN GIVEN TOGETHER WITH LYRICA. BOTH ARE SCHEDULED FOR 2099. PER NURSING JUDGEMENT I WILL WAIT 3 HOURS TO GIVE ZANAFLEX. PT VOICES NO PAIN AT THIS TIME. VOICES "ILL LOOK FOR YOU IN THE MORINING"". I TURNED ROOM LIGHT OFF AND GOT PT POSITIONED COMFORTABLE. VITAL SIGNS ARE STABLE. BED IS LOW,SIDE RAILSX2, BED ALARM IS ON. CALL LIGHT WITHIN REACH. WILL CONITNUE TO MONITOR
[2019-11-05] VITALS (16 sets, daily range): BP systolic 112–196; BP diastolic 44–78
--- NOTE | 2019-11-05 00:08 | NUR ---
PT IS RESTING IN BED WITH EYES CLOSED. VITAL SIGNS ARE STABLE. BED IS LOW,SIDE RAILSX2, BED ALARM IS ON. CALL LIGHT WITHIN REACH. WILL CONTINEUT O MONITOR
--- NOTE | 2019-11-05 02:13 | NUR ---
PT IS RESTING IN BED WITH EYES CLOSED. VITALS ARE STABLE. BED IS LOW,SIDE RAILSX2,CALL LIGHT WITHIN REACH. WILL CONINTUE TO MONITOR. BED ALARM IS ON
[2019-11-05 03:37] LABS: BASOPHILS 0.3 % (0-2); EOSINOPHILS 1.8 % (0-7); HEMATOCRIT 25.4 % (36.0-48.0); HEMOGLOBIN 8.3 g/dL (12-16); IMMATURE GRANULOCYTES 0.3 % (0-5); LYMPHOCYTES 15.3 % (15-50); MCH 30.1 pg (26.0-34.0); MCHC 32.7 g/dL (31.0-37.0); MEAN PLATELET VOLUME 10.4 fL (7.4-10.4); MONOCYTES 6.3 % (2-11); PLATELET COUNT 181 10x3/uL (130-400); RBC 2.76 10x6/uL (4.00-5.40); RDW 14.4 % (11.5-14.5)
[2019-11-05 03:38] LABS: WBC 7.3 10x3/uL (4.8-10.8)
[2019-11-05 03:51] LABS: ANION GAP 13.6 mmol/L (8-16); CARBON DIOXIDE 22.1 mmol/L (21.0-32.0); CREATININE - SERUM 2.5 mg/dL (0.6-1.3); MAGNESIUM - SERUM 1.9 mg/dL (1.8-2.4); PHOSPHOROUS 4.8 mg/dL (2.5-4.9); POTASSIUM - SERUM 3.7 mmol/L (3.5-5.1)
--- NOTE | 2019-11-05 04:08 | NUR ---
PT IS RESTING IN BED WITH EYES CLOSED. VITALS ARE STABLE. BED IS LOW,SIDE RAILSX2,CALL LIGHT WITHIN REACH. BED ALARM IS ON. WILL CONTINUE TO MONITOR
--- NOTE | 2019-11-05 06:17 | NUR ---
CALLED TO CHECK ON PTS NIGHT. NEW T.O TO DC NS AND CHANGE TO LR AT 75ML/HR AND TO ALSO DC ZANAFLEX. T.O READ BACK CORRECT.
--- NOTE | 2019-11-05 06:36 | NUR ---
PT IS RESTING IN BED VOICES NO PAIN AT THIS TIME. VOICES"GOODMORNING". VITAL SIGNS ARE STABLE. I ACCESSED IV SITE IN RIGHT UPPER FORARM. THERE IS SOME SWELLING IN THE FORARM HOWEVER THE IV PULLS BACK BLOOD RETURN. PT IS A RESERVE LEFT ARM SO I WILL SWITCH THE BP CUFF TO LOWER LEG. WILL CONINTUE TO MONITOR THIS. PT DOES NOT C/O OF PAIN IN THE ARM. BED IS LOW,SIDE RAILSX2,CALL LIGHT WITHIN REACH. WILL CONINTUE TO MONITOR. BED ALARM IS ON
--- NOTE | 2019-11-05 08:10 | NUR ---
UP IN BED VISITING WITH DAUGHTER AT THIS TIME. VSS. NO ACUTE DISTRESS NOTED. WILL CONTINUE PLAN OF CARE.
--- NOTE | 2019-11-05 09:20 | NUR ---
UP IN BED EATING BREAKFAST AT THIS TIME. VSS. NO ACUTE DISTRESS NOTED. CALL LIGHT IN REACH. PERSONAL ITEMS IN REACH. WILL CONTINUE PLAN OF CARE.
--- NOTE | 2019-11-05 11:36 | NUR ---
NO ACUTE DISTRESS NOTED. VSS. CALL LIGHT IN REACH. WILL CONTINUE PLAN OF CARE.
--- NOTE | 2019-11-05 13:53 | NUR ---
SBP TRENDING UP TO 190S, DR THOMPSON AT BEDSIDE. STATED WILL PLACE ORDERS, SCHEDULED MEDS ADMIN. WILL ADMIN PRN ORDERS IF BP DOES NOT COME DOWN.
--- NOTE | 2019-11-05 14:25 | NUR ---
PER DR HERNANDEZ; PERFECTO WHITE, TRANSFER PT TO FLOOR, AND HAVE PHYSICAL THERAPY WORK WITH HER.
--- NOTE | 2019-11-05 16:36 | NUR ---
NOTED ORDER FOR WHITE TO BE DCD, SINCE WHITE WAS INITIALLY PLACED FOR RETENTION, BLADDER TRAINING BEGAN AT THIS TIME. WAITING FOR PT TO NOTIFY STAFF THAT SHE FEELS URGE TO URINATE.
--- NOTE | 2019-11-05 17:07 | NUR ---
ATTEMPTED TO CALL REPORT AT THIS TIME FOR PT TO TRANSFER TO ROOM 2131, NOTED NURSE WAS BUSY AT THIS TIME AND WILL CALL BACK.
--- NOTE | 2019-11-05 17:44 | NUR ---
REPORT CALLED FOR PT TO TRANFER TO ROOM 2131. WILL TRANSFER PT SHORTLY.
--- NOTE | 2019-11-05 18:41 | NUR ---
PT TRANSFERRED TO 2130 AT THIS TIME WITH ALL PERSONAL ITEMS ACCOMPANIED BY HOSPITAL STAFF AND PTS FAMILY. VSS. NO FURTHER ACTIONS.
--- NOTE | 2019-11-05 18:57 | NUR ---
ICU TRANFER, BED IS LOW, SRX2, CALL LIGHT IN REACH, WILL CONTINUE PLAN OF CARE
--- NOTE | 2019-11-05 21:15 | NUR ---
PM MEDS PROVIDED, GIVEN ICEWATER, DENIES ANY NEEDS AT THIS TIME, BED IS LOW, SRX3, CALL LIGHT IN REACH, WILL CONTINUE PLAN OF CARE
[2019-11-06] VITALS: BP 146/46
[2019-11-06 04:00] VITALS: BP 192/56
--- NOTE | 2019-11-06 04:38 | NUR ---
I have reviewed this patient and I concur with the Shift Assessment completed by the Licensed Practical Nurse today this shift.
[2019-11-06 05:23] LABS: BASOPHILS 0.3 % (0-2); EOSINOPHILS 0.9 % (0-7); HEMATOCRIT 28.4 % (36.0-48.0); HEMOGLOBIN 9.4 g/dL (12-16); IMMATURE GRANULOCYTES 1.1 % (0-5); LYMPHOCYTES 14.3 % (15-50); MCH 30.5 pg (26.0-34.0); MCHC 33.1 g/dL (31.0-37.0); MCV 92.2 fL (80.0-100.0); MEAN PLATELET VOLUME 10.1 fL (7.4-10.4); MONOCYTES 5.9 % (2-11); NEUTROPHILS 77.5 % (40-80); PLATELET COUNT 197 10x3/uL (130-400); RBC 3.08 10x6/uL (4.00-5.40); RDW 14.3 % (11.5-14.5); WBC 7.5 10x3/uL (4.8-10.8)
[2019-11-06 06:06] LABS: ALBUMIN 1.7 g/dL (3.4-5.0); BILIRUBIN - TOTAL 0.14 mg/dL (0.2-1.3); CALCIUM 8.5 mg/dL (8.5-10.1); CARBON DIOXIDE 23.5 mmol/L (21.0-32.0); CREATININE - SERUM 2.2 mg/dL (0.6-1.3); POTASSIUM - SERUM 3.5 mmol/L (3.5-5.1); PROTEIN - SERUM 5.6 g/dL (6.4-8.2)
--- NOTE | 2019-11-06 07:20 | NUR ---
RECIEVE REPORT. ALERT AND ORIENTED X4. SITTING UP IN BED. CONTROLLED AFIB ON TELEMETRY. DENIES ANY NEEDS. CONTINUE PLAN OF CARE AND SAFETY PRECAUTIONS.
[2019-11-06 08:36] VITALS: BP 181/46
[2019-11-06 12:22] VITALS: BP 168/40
[2019-11-06 17:24] VITALS: BP 181/54
--- NOTE | 2019-11-06 17:24 | NUR ---
ALERT AND ORIENTED X3. FAMILY AT BEDSIDE. DENIES ANY NEEDS AT THIS TIME. CONTROLLED AFIB ON TELEMETRY. ASSIST TO RESTROOM. VOIDS IN TOILET. CONTINUE PLAN OF CARE AND SAFETY PRECAUTIONS.
--- NOTE | 2019-11-06 19:09 | NUR ---
AT REST WITH EYES CLOSED CALL LIGHT IS IN REACH BED IS LOW RESP EVEN AND UNLABORED
[2019-11-06 20:00] VITALS: BP 171/55
[2019-11-07] VITALS: BP 177/51
[2019-11-07 04:00] VITALS: BP 168/53
--- NOTE | 2019-11-07 04:53 | NUR ---
I have reviewed this patient and I concur with the Shift Assessment completed by the Licensed Practical Nurse today this shift.
[2019-11-07 05:29] LABS: BASOPHILS 0.3 % (0-2); EOSINOPHILS 2.7 % (0-7); HEMATOCRIT 29.2 % (36.0-48.0); HEMOGLOBIN 9.7 g/dL (12-16); IMMATURE GRANULOCYTES 0.4 % (0-5); MCH 30.2 pg (26.0-34.0); MCHC 33.2 g/dL (31.0-37.0); MEAN PLATELET VOLUME 10.2 fL (7.4-10.4); MONOCYTES 7.5 % (2-11); NEUTROPHILS 74.1 % (40-80); PLATELET COUNT 211 10x3/uL (130-400); RBC 3.21 10x6/uL (4.00-5.40); WBC 7.4 10x3/uL (4.8-10.8)
[2019-11-07 05:40] LABS: ALBUMIN 1.9 g/dL (3.4-5.0); BILIRUBIN - TOTAL 0.2 mg/dL (0.2-1.3); CALCIUM 8.3 mg/dL (8.5-10.1); CARBON DIOXIDE 25.4 mmol/L (21.0-32.0); CREATININE - SERUM 1.9 mg/dL (0.6-1.3); PHOSPHOROUS 3.6 mg/dL (2.5-4.9); POTASSIUM - SERUM 3.4 mmol/L (3.5-5.1); PROTEIN - SERUM 5.6 g/dL (6.4-8.2)
--- NOTE | 2019-11-07 09:22 | NUR ---
AM MEDS GIVEN AT THIS TIME. PT RESTING COMFORTABLY IN BED, FIXING TO EAT BREAKFAST. PT A/O X2, RESP EVEN AND NONLABORED ON 4L. RT FA X2 SL. PT DENIES ANY NEEDS AT THIS TIME. CALL LIGHT IN REACH,NAD NOTED, WILL CONTINUE TO MONITOR.
[2019-11-07 12:00] VITALS: BP 177/62
--- NOTE | 2019-11-07 14:21 | NUR ---
PT RESTING COMFORTABLY IN BED, DENIES ANY NEEDS AT THIS TIME. CALL LIGHT IN REACH, BEDSIDE RAILS X2, NAD NOTED, WILL CONTINUE TO MONITOR.
[2019-11-07 20:00] VITALS: BP 157/49
[2019-11-08] VITALS: BP 99/52
--- NOTE | 2019-11-08 02:47 | NUR ---
RESTING WITH EYES CLOSED, RESPERATIONS EVEN, NO S/S DISTRESS NOTED.
[2019-11-08 04:00] VITALS: BP 103/61
[2019-11-08 06:06] LABS: BASOPHILS 0.3 % (0-2); EOSINOPHILS 2.6 % (0-7); HEMATOCRIT 30.7 % (36.0-48.0); HEMOGLOBIN 9.9 g/dL (12-16); IMMATURE GRANULOCYTES 0.6 % (0-5); MCH 29.9 pg (26.0-34.0); MCHC 32.2 g/dL (31.0-37.0); MCV 92.7 fL (80.0-100.0); MONOCYTES 6.6 % (2-11); NEUTROPHILS 71.9 % (40-80); PLATELET COUNT 239 10x3/uL (130-400); RBC 3.31 10x6/uL (4.00-5.40); RDW 14.2 % (11.5-14.5); WBC 6.6 10x3/uL (4.8-10.8)
[2019-11-08 06:30] LABS: ALBUMIN 1.9 g/dL (3.4-5.0); ANION GAP 12.1 mmol/L (8-16); BILIRUBIN - TOTAL 0.2 mg/dL (0.2-1.3); CALCIUM 8.6 mg/dL (8.5-10.1); CARBON DIOXIDE 25.8 mmol/L (21.0-32.0); CREATININE - SERUM 1.8 mg/dL (0.6-1.3); POTASSIUM - SERUM 3.9 mmol/L (3.5-5.1); PROTEIN - SERUM 5.7 g/dL (6.4-8.2)
[2019-11-08 09:00] VITALS: BP 210/60
[2019-11-08 12:00] VITALS: BP 168/62
--- NOTE | 2019-11-08 14:40 | NUR ---
Nutrition Follow-up: Not eating well. Ok to liberalize to diabetic diet per Dr. Noel to encourage PO intake. Diet: Renal ADA, caffeine free PO intake: 0-25% Wt: 144.4# (11/07); 146# (11/04); 130# (10/28) No BMs recorded Labs noted: K+ 3.9, Glu 113, Alb 1.9 Meds noted: Miralax, KDur, Protonix -Change to diabetic diet per Dr. Noel. -Offer Glucerna with meals. -Monitor wt; noted daily wts ordered. -RD following.
[2019-11-08 16:00] VITALS: BP 195/65
[2019-11-08 20:00] VITALS: BP 178/44
[2019-11-09] VITALS: BP 176/47
--- NOTE | 2019-11-09 02:12 | NUR ---
I have reviewed this patient and I concur with the Shift Assessment completed by the Licensed Practical Nurse today this shift.
[2019-11-09 04:00] VITALS: BP 132/66
[2019-11-09 06:09] LABS: BASOPHILS 0.6 % (0-2); EOSINOPHILS 1.3 % (0-7); HEMATOCRIT 31.6 % (36.0-48.0); HEMOGLOBIN 10.2 g/dL (12-16); IMMATURE GRANULOCYTES 0.7 % (0-5); LYMPHOCYTES 15.9 % (15-50); MCH 30.4 pg (26.0-34.0); MCHC 32.3 g/dL (31.0-37.0); NEUTROPHILS 75.5 % (40-80); PLATELET COUNT 239 10x3/uL (130-400); RBC 3.36 10x6/uL (4.00-5.40); RDW 14.2 % (11.5-14.5); WBC 6.8 10x3/uL (4.8-10.8)
[2019-11-09 07:00] LABS: ALBUMIN 2.1 g/dL (3.4-5.0); ANION GAP 16.7 mmol/L (8-16); BILIRUBIN - TOTAL 0.26 mg/dL (0.2-1.3); CALCIUM 8.7 mg/dL (8.5-10.1); CARBON DIOXIDE 22.4 mmol/L (21.0-32.0); CREATININE - SERUM 1.8 mg/dL (0.6-1.3); PHOSPHOROUS 4.4 mg/dL (2.5-4.9); POTASSIUM - SERUM 4.1 mmol/L (3.5-5.1); PROTEIN - SERUM 5.4 g/dL (6.4-8.2)
[2019-11-09 09:00] VITALS: BP 201/55
--- NOTE | 2019-11-09 09:35 | NUR ---
AM MEDS GIVEN AT THIS TIME. PT RESTING COMFORTABLY IN BED, RESP EVEN AND NONLABORED ON 4L. RT FA X2 SL AND PATENT. PT DENIES ANY NEEDS AT THIS TIME. CALL LIGHT IN REACH, BEDSIDE RAILS X2, BED ALARM ON,NAD NOTED, WILL CONTINUE TO MONITOR.
--- NOTE | 2019-11-09 11:29 | NUR ---
BLOOD SUGAR OF 127, NO COVEAGE NEEDED PER S/S. PT UP TO CHAIR, DENIES ANY OTHER NEEDS AT THIS TIME. CALL LIGHT IN REACH, NAD NOTED,W ILL CONTINUE TO MONITOR.
[2019-11-09 12:00] VITALS: BP 165/53
[2019-11-09 16:00] VITALS: BP 125/40
--- NOTE | 2019-11-09 16:32 | NUR ---
BLOOD SUGAR OF 124, NO COVERAGE NEEDED PER S/S. PT RESTING COMFORTABLY IN BED, DENIES ANY NEED AT THIS TIME. CALL LIGHT IN REACH, NAD NOTED, WILL CONTINUE TO MONITOR.
--- NOTE | 2019-11-09 19:44 | NUR ---
ASSESSMENT COMPLETE, PT A&O, PT HAS CONFUSION AT TIMES. RESPERATONS NON LABORED ON O2 AT 3 LITERS VIA HIGH FLOW NC. PT HAS 2 PIVS, BOTH SL TO RIGHT ARM, UPPER AND LOWER FOREARM. PT DENIES PAIN OR NEEDS, BED LOW, CL IN REACH.
[2019-11-09 20:00] VITALS: BP 170/48
--- NOTE | 2019-11-10 01:42 | NUR ---
I have reviewed this patient and I concur with the Shift Assessment completed by the Licensed Practical Nurse today this shift.
--- NOTE | 2019-11-10 04:23 | NUR ---
RESTING WITH EYES CLOSED, RESPERATIONS EVEN, NO S/S DISTRESS NOTED.
[2019-11-10 06:01] LABS: BASOPHILS 0.3 % (0-2); EOSINOPHILS 2.8 % (0-7); HEMATOCRIT 32.3 % (36.0-48.0); HEMOGLOBIN 10.4 g/dL (12-16); IMMATURE GRANULOCYTES 0.5 % (0-5); LYMPHOCYTES 19.7 % (15-50); MCH 30.1 pg (26.0-34.0); MCHC 32.2 g/dL (31.0-37.0); MCV 93.4 fL (80.0-100.0); MEAN PLATELET VOLUME 9.9 fL (7.4-10.4); MONOCYTES 5.8 % (2-11); NEUTROPHILS 70.9 % (40-80); PLATELET COUNT 245 10x3/uL (130-400); RBC 3.46 10x6/uL (4.00-5.40); WBC 7.8 10x3/uL (4.8-10.8)
[2019-11-10 06:32] LABS: ANION GAP 11.8 mmol/L (8-16); BILIRUBIN - TOTAL 0.25 mg/dL (0.2-1.3); CALCIUM 8.7 mg/dL (8.5-10.1); CREATININE - SERUM 1.8 mg/dL (0.6-1.3); POTASSIUM - SERUM 3.8 mmol/L (3.5-5.1)
[2019-11-10 10:13] VITALS: BP 198/82
--- NOTE | 2019-11-10 12:11 | NUR ---
PT RESTING IN BED A/O X4. PT HAS SLEPT ALL OF THE DAY AND HASN'T WANTED TO EAT BREAKFAST OR LUCH AFTER INCOURGMENT FOR THIS NURSE. I EXPLAINED THAT SHE WOULD FEEL BETTER IF SHE ATE SOMETHING. THERE IS NOTHING SHE COULD THINK OF THAT SHE WANTED TO EAT. VSS AT THIS TIME. BED LOW CALL LIGHT WITHIN REACH. WILL CONTINUE TO MONITOR.
--- NOTE | 2019-11-10 14:29 | NUR ---
Nutrition Follow-up: Continues to have poor PO intake. Per nursing, didn't want to eat breakfast or lunch, even with encouragement. Diet: Diabetic PO intake: 12% avg x 9 meals No new wt; last wt: 144.4# (11/07); 147.7# (11/01) Labs noted: Glu 114, Alb 2.0, Na 144 Meds noted: Megace, Miralax, Protonix -Continue to encourage PO intake. -Will send Glucerna with dinner tonight for pt trial. -Need new wt; noted daily wts ordered. -RD following.
[2019-11-10 18:10] VITALS: BP 105/70
[2019-11-10 20:00] VITALS: BP 106/56
--- NOTE | 2019-11-11 00:38 | NUR ---
RESTING WITH EYES CLOSED, RESPERATIONS EVEN, NO S/S DISTRESS NOTED.
[2019-11-11 02:46] VITALS: BP 91/53
--- NOTE | 2019-11-11 03:34 | NUR ---
I have reviewed this patient and I concur with the Shift Assessment completed by the Licensed Practical Nurse today this shift.
[2019-11-11 04:00] VITALS: BP 114/62
[2019-11-11 06:45] LABS: BASOPHILS 0.3 % (0-2); EOSINOPHILS 1.9 % (0-7); HEMATOCRIT 31.1 % (36.0-48.0); HEMOGLOBIN 10.1 g/dL (12-16); IMMATURE GRANULOCYTES 0.5 % (0-5); LYMPHOCYTES 19.9 % (15-50); MCH 30.3 pg (26.0-34.0); MCHC 32.5 g/dL (31.0-37.0); MCV 93.4 fL (80.0-100.0); MONOCYTES 6.6 % (2-11); NEUTROPHILS 70.8 % (40-80); PLATELET COUNT 223 10x3/uL (130-400); RBC 3.33 10x6/uL (4.00-5.40); RDW 14.1 % (11.5-14.5); WBC 7.4 10x3/uL (4.8-10.8)
[2019-11-11 07:00] LABS: ANION GAP 15.9 mmol/L (8-16); CALCIUM 8.6 mg/dL (8.5-10.1); CARBON DIOXIDE 23.5 mmol/L (21.0-32.0); CREATININE - SERUM 1.8 mg/dL (0.6-1.3); PHOSPHOROUS 3.8 mg/dL (2.5-4.9); POTASSIUM - SERUM 3.4 mmol/L (3.5-5.1)
[2019-11-11 10:06] VITALS: BP 170/70
[2019-11-11 14:01] VITALS: BP 180/60
[2019-11-11 18:09] VITALS: BP 184/59
--- NOTE | 2019-11-11 19:45 | NUR ---
REPORT RECIEVED AND INITIAL ROUNDS COMPLETED. PT RESTING IN BED. ALERT/ORIENTED. SR W/ BBB/80 PER TELEMETRY. O2 @ 3L/NC WITH NONLABORED RESPIRATIONS. PIV TO RFA WITH IVF INFUSING. CALL LIGHT IN REACH. CPOC.
[2019-11-11 20:00] VITALS: BP 87/57
--- NOTE | 2019-11-11 21:39 | NUR ---
BEDTIME MEDS GIVEN. MIRALAX REFUSED BECAUSE BOWEL MOVEMENT TODAY AND DOESN'T WANT TO GET TOO LOOSE.
[2019-11-12] VITALS: BP 92/60
[2019-11-12 04:00] VITALS: BP 132/75
[2019-11-12 06:15] LABS: BASOPHILS 0.4 % (0-2); EOSINOPHILS 1.9 % (0-7); HEMOGLOBIN 10.2 g/dL (12-16); IMMATURE GRANULOCYTES 0.4 % (0-5); LYMPHOCYTES 23.2 % (15-50); MCH 29.8 pg (26.0-34.0); MCHC 31.9 g/dL (31.0-37.0); MCV 93.6 fL (80.0-100.0); MEAN PLATELET VOLUME 10.2 fL (7.4-10.4); MONOCYTES 7.8 % (2-11); NEUTROPHILS 66.3 % (40-80); PLATELET COUNT 203 10x3/uL (130-400); RBC 3.42 10x6/uL (4.00-5.40); WBC 6.8 10x3/uL (4.8-10.8)
[2019-11-12 06:31] LABS: ANION GAP 12.9 mmol/L (8-16); CALCIUM 8.1 mg/dL (8.5-10.1); CARBON DIOXIDE 22.8 mmol/L (21.0-32.0); CREATININE - SERUM 1.7 mg/dL (0.6-1.3); POTASSIUM - SERUM 3.7 mmol/L (3.5-5.1)
--- NOTE | 2019-11-12 07:00 | NUR ---
RECEIVED REPORT. ASSUMED CARE OF PATIENT. RESTING WITH EYES CLOSED. RESP EVEN AND UNLABORED. IV FLUIDS INFUSING TO RIGHT WRIST ORDERED. CALL LIGHT WITHIN REACH. AFIB ON TELEMETRY, RATE 91. NO DISTRESS.
--- NOTE | 2019-11-12 08:30 | NUR ---
MANUAL BP 152/68
--- NOTE | 2019-11-12 09:00 | NUR ---
CLEAN SPECIMEN HAT PROVIDED FOR URINE COLLECTION AT THIS TIME.
[2019-11-12 10:17] VITALS: BP 152/68
--- NOTE | 2019-11-12 11:06 | NUR ---
PATIENT OOB TO CHAIR AT BEDSIDE VIA PHYSICAL THERAPY. NO DISTRESS.
--- NOTE | 2019-11-12 11:12 | NUR ---
FSBS 178. 4 UNITS HUMALOG ADMINISTERED PER SLIDING SCALE. NO DISTRESS.
[2019-11-12] MEDS ORDERED: HYDRALAZINE HCL50 MG PO (11:41)
[2019-11-12] MEDS ORDERED: LISINOPRIL10 MG PO (11:41)
[2019-11-12] MEDS ORDERED: FLOMAX0.4 MG PO (11:41)
[2019-11-12] MEDS ORDERED: CARDENE20 MG PO (11:42)
[2019-11-12] MEDS ORDERED: COREG12.5 MG PO (11:42)
[2019-11-12] MEDS ORDERED: CARDURA4 MG PO (11:43)
--- NOTE | 2019-11-12 12:12 | NUR ---
SPOKE WITH CASE MANAGEMENT REGARDING DISCHARGE TO REHAB UNIT PATIENT LIVED AT HOME PRIOR TO THIS HOSPITAL STAY AND HAS NOT HAS REHAB PRESCREENING OR CASE MANAGEMENT NOTE DOCUMENTING PATIENT HAS CHOSEN TO DISCHARGE TO REHAB. CASE MANAGEMENT IS COMING TO SEE THE PATIENT. ALSO CALLED AND LET ROBERTO PATEL, KNOW THAT CASE MANAGEMENT IS WORKING ON GETTING PATIENT TO A REHAB.
--- NOTE | 2019-11-12 12:49 | NUR ---
MEDICATED FOR NECK PAIN AT THIS TIME. PATIENT ASSISTED BACK TO BED. CALL LIGHT WITHIN REACH. NO DISTRESS.
[2019-11-12 13:16] VITALS: BP 144/65
--- NOTE | 2019-11-12 14:55 | NUR ---
AIDAN, CASE MANAGEMENT, SPOKE WITH JAYNA FROM REHAB AND ARE COMPLETING A PRESCREENING ON PATIENT AT THIS TIME. IF ABLE TO ACCEPT PATIEN TO INPATIENT REHAB, IT WOULD BE TOMORROW BEFORE PATIENT COULD BE TRANSFERRED PER JAYNA.
--- NOTE | 2019-11-12 14:59 | MORECARE ---
CASE MANAGEMENT DISCHARGE SUMMARY PATIENT: MARY MABRY UNIT: [id number] ADM DATE: 10/27/19 AGE: 79 : 38 SEX: F ROOM/BED: D.5653 AUTHOR: ANH LEE PHYSICIAN: REFERRING PHYSICIAN: RIMA WYLIE MD DATE OF SERVICE: 11/12/19 Discharge Plan Patient Name: MARY MABRY Facility: [facility]:[place] : 1940 Planned Disposition: Anticipated Discharge Date: Discharge Date: Expected LOS: Initial Reviewer: [id number] Initial Review Date: 10/28/2019 Generated: 11/12/19 3:58 pm Comments DCP- Discharge Planning Updated by [id number]: Janessa Antonio on 11/12/19 1:[address] Patient Name: MARY MABRY Admission Status: ER Accout number: [id number] Admission Date: 10-27-2019 : 1940 Admission Diagnosis: Attending: RIMA WYLIE Current LOS: 16 Anticipated DC Date: Planned Disposition: Primary Insurance: MEDICARE A & B Discharge Planning Comments: CM SPOKE WITH PATIENT AND HER DAUGHTER. SHE WANTS [facility], I CONTACTED [facility] AND WAITING TO SEE IF THEY CAN ACCEPT HER. SHE SAID IF THEY COULD IT WOULD BE TOMORROW. KEV SIGNED FOR [facility]. IMM SIGNED. WAITING FOR CALL BACK FROM [facility] TO PROCEED FORWARD. Plastic Design Applier: Janessa Antonio DCP- Discharge Planning Updated by [id number]: Shannon Singleton on 10/28/19 7:[address] Patient Name: MARY MABRY Admission Status: ER Accout number: [id number] Admission Date: 10-27-2019 : 1940 Admission Diagnosis: Attending: RIMA WYLIE Current LOS: 1 Anticipated DC Date: Planned Disposition: Primary Insurance: MEDICARE A & B Discharge Planning Comments: CM met with patient to complete initial dc planning assessment. CM educated patient on the CM role and verbal consent given by patient to complete assessment. Patient lives at home with her daughter where she is independent with her care. At discharge patient plans to return home and feels this is a safe discharge. CM discussed availability of home health, rehab services, and medical equipment. Her daughter will be her hole digger truck driver home. Patient denied known discharge needs at this time. CM will continue to follow and will assist as needed with dc plans/needs. Plastic Design Applier: Shannon Singleton DCPIA - Discharge Planning Initial Assessment Updated by [email or web address]: Shannon Mani on 10/28/19 8:04 pm * Is the patient Alert and Oriented? Yes * How many steps to enter\exit or inside your home? ramp * PCP ORTEGA * [facility] * Preadmission Environment Home with Family * ADLs Independent * Equipment Walker * List name and contact numbers for known caregivers / representatives who currently or will assist patient after discharge: [employer]IN[employer] SIFUENTES - F[place]IPE - [phone] * Verbal permission to speak to the caregivers and representatives has been obtained from the patient. Yes * Community resources currently utilized None * Additional services required to return to the preadmission environment? No * Can the patient safely return to the preadmission environment? Yes * Has this patient been hospitalized within the prior 30 days at any hospital? No Coverage Notice Reviewer: [id number] Rachael Headley Notice Issued Date-Time: 10/26/2019 9:50 Notice Type: Medicare Outpatient Observation Notice Notice Delivered To: Patient Relationship to Patient: Staying Machine Operator Name: Delivery Method: HAND - Hand Delivered Cadence Days: Prior Verbal Notification: Recipient Understood Notice: Yes Recipient Signature: Yes Med Rec Note Co-signed by Attending: Coverage Notice Comment: LIGHT SERVED, EXPLAINED, SIGNED BY PATIENT AND ORIGINAL PROVIDED AND COPY PLACED ON CHART. Reviewer: [email or web address] Rachael Antonio Notice Issued Date-Time: 11/12/2019 14:53 Notice Type: IM Discharge Notice Notice Delivered To: Patient Relationship to Patient: Staying Machine Operator Name: Delivery Method: HAND - Hand Delivered Cadence Days: Prior Verbal Notification: Recipient Understood Notice: Yes Recipient Signature: Yes Med Rec Note Co-signed by Attending: Coverage Notice Comment: Reviewer: [email or web address] Rachael Antonio Notice Issued Date-Time: 11/12/2019 14:53 Notice Type: Patient Choice Letter Notice Delivered To: Patient Relationship to Patient: Staying Machine Operator Name: Delivery Method: HAND - Hand Delivered Cadence Days: Prior Verbal Notification: Recipient Understood Notice: Yes Recipient Signature: Yes Med Rec Note Co-signed by Attending: Coverage Notice Comment: Last DP export: 10/28/19 7:11 p Patient Name: MARY MABRY Page [id number] at 1459 All edits/amendments must be made on the electronic document DICTATION DATE: 11/12/191457 ELECTRIC MOTOR MECHANIC: RAUL 11/12/191457 RPT#: [id number] DC DATE: STATUS: ADM IN [facility] [address] [place] [address] END OF REPORT
--- NOTE | 2019-11-12 15:03 | NUR ---
Rehab Note- Acute Inpatient Rehab prescreen order received. The patient is a good inpatient rehab candidate. Will accept the patient to [facility] Acute Inpatient Rehab. Have spoken to SAGRARIO Riddle. Thank you for this referral! Digna Devine RN Clinical Liaison, [facility] Rehab
--- NOTE | 2019-11-12 15:18 | NUR ---
PER CASE MANAGEMENT AIDAN, PATIENT IS ABLE TO TRANSFER TO INPATIENT REHAB TOMORROW PER JAYNA.
--- NOTE | 2019-11-12 15:34 | MORECARE ---
CASE MANAGEMENT DISCHARGE SUMMARY PATIENT: MARY MABRY UNIT: [id number] ADM DATE: 10/27/19 AGE: 79 : 38 SEX: F ROOM/BED: D.2131 AUTHOR: JESUSDOC PHYSICIAN: REFERRING PHYSICIAN: RIMA WYLIE MD DATE OF SERVICE: 11/12/19 Discharge Plan Patient Name: MARY MABRY Facility: [facility]:[place] : 1940 Planned Disposition: Anticipated Discharge Date: Discharge Date: Expected LOS: Initial Reviewer: [email or web address] Initial Review Date: 10/28/2019 Generated: 11/12/19 4:34 pm Comments DCP- Discharge Planning Updated by [id number]: Janessa Antonio on 11/12/19 2:[address] Patient Name: MARY MABRY Admission Status: ER Accout number: [id number] Admission Date: 10-27-2019 : 1940 Admission Diagnosis: Attending: RIMA WYLIE Current LOS: 16 Anticipated DC Date: Planned Disposition: Primary Insurance: MEDICARE A & B Discharge Planning Comments: REVEIVED CALL FROM [facility] AND THEY WILL ACCEPT PATIENT TOMORROW. FAMILY NOTIFIED. Honing Machine Operator: Janessa Antonio DCP- Discharge Planning Updated by [id number]: Janessa Antonio on 11/12/19 1:[address] Patient Name: MARY MABRY Admission Status: ER Accout number: [id number] Admission Date: 10-27-2019 : 1940 Admission Diagnosis: Attending: RIMA WYLIE Current LOS: 16 Anticipated DC Date: Planned Disposition: Primary Insurance: MEDICARE A & B Discharge Planning Comments: CM SPOKE WITH PATIENT AND HER DAUGHTER. SHE WANTS [facility], I CONTACTED [facility] AND WAITING TO SEE IF THEY CAN ACCEPT HER. SHE SAID IF THEY COULD IT WOULD BE TOMORROW. KEV SIGNED FOR [facility]. IMM SIGNED. WAITING FOR CALL BACK FROM [facility] TO PROCEED FORWARD. Honing Machine Operator: Janessa Antonio DCP- Discharge Planning Updated by [id number]: Shannon Singleton on 10/28/19 7:[address] Patient Name: MARY MABRY Admission Status: ER Accout number: [id number] Admission Date: 10-27-2019 : 1010-1940 Admission Diagnosis: Attending: RIMA WYLIE Current LOS: 1 Anticipated DC Date: Planned Disposition: Primary Insurance: MEDICARE A & B Discharge Planning Comments: CM met with patient to complete initial dc planning assessment. CM educated patient on the CM role and verbal consent given by patient to complete assessment. Patient lives at home with her daughter where she is independent with her care. At discharge patient plans to return home and feels this is a safe discharge. CM discussed availability of home health, rehab services, and medical equipment. Her daughter will be her otr company truck driver home. Patient denied known discharge needs at this time. CM will continue to follow and will assist as needed with dc plans/needs. Honing Machine Operator: Shannon Singleton DCPIA - Discharge Planning Initial Assessment Updated by [id number]: Shannon Singleton on 10/28/19 8:04 pm * Is the patient Alert and Oriented? Yes * How many steps to enter\exit or inside your home? ramp * PCP ORTEGA * [facility] * Preadmission Environment Home with Family * ADLs Independent * Equipment Walker * List name and contact numbers for known caregivers / representatives who currently or will assist patient after discharge: [employer] - F[place]IPE - [phone] * Verbal permission to speak to the caregivers and representatives has been obtained from the patient. Yes * Community resources currently utilized None * Additional services required to return to the preadmission environment? No * Can the patient safely return to the preadmission environment? Yes * Has this patient been hospitalized within the prior 30 days at any hospital? No Coverage Notice Reviewer: [email or web address] Rachael Antonio Notice Issued Date-Time: 11/12/2019 14:53 Notice Type: Patient Choice Letter Notice Delivered To: Patient Relationship to Patient: Adhesive Sprayer Name: Delivery Method: HAND - Hand Delivered Cadence Days: Prior Verbal Notification: Recipient Understood Notice: Yes Recipient Signature: Yes Med Rec Note Co-signed by Attending: Coverage Notice Comment: Reviewer: [email or web address] Rachael Headley Notice Issued Date-Time: 10/26/2019 9:50 Notice Type: Medicare Outpatient Observation Notice Notice Delivered To: Patient Relationship to Patient: Adhesive Sprayer Name: Delivery Method: HAND - Hand Delivered Cadence Days: Prior Verbal Notification: Recipient Understood Notice: Yes Recipient Signature: Yes Med Rec Note Co-signed by Attending: Coverage Notice Comment: NADEGE SERVED, EXPLAINED, SIGNED BY PATIENT AND ORIGINAL PROVIDED AND COPY PLACED ON CHART. Reviewer: [id number] Rachael Antonio Notice Issued Date-Time: 11/12/2019 14:53 Notice Type: IM Discharge Notice Notice Delivered To: Patient Relationship to Patient: Adhesive Sprayer Name: Delivery Method: HAND - Hand Delivered Cadence Days: Prior Verbal Notification: Recipient Understood Notice: Yes Recipient Signature: Yes Med Rec Note Co-signed by Attending: Coverage Notice Comment: Last DP export: 11/12/19 1:59 p Patient Name: MARY MABRY Page [id number] at 1534 All edits/amendments must be made on the electronic document DICTATION DATE: 11/12/19 153 CLIENT ADVOCATE: RAUL 11/12/19 1534 RPT#: [id number] DC DATE: STATUS: ADM IN [facility] [address] [place] [address] END OF REPORT
[2019-11-12 16:37] VITALS: BP 138/53
--- NOTE | 2019-11-12 16:52 | NUR ---
FSBS 129. NO INSULIN COVERAGE PER SLIDING SCALE.
--- NOTE | 2019-11-12 18:25 | NUR ---
PATIENT COMPLAINING OF SEVERE NECK AND BACK PAIN/SPASMS. MEDICATED AT THIS TIME. CALL LIGHT WITHIN REACH.
--- NOTE | 2019-11-12 19:30 | NUR ---
REPORT RECIEVED AND INITIAL ROUNDS COMPLETED. PT RESTING IN BED. WAS GIVEN TYLENOL AND FLEXERIL BEFORE END OF DAY SHIFT AND IS NO LONGER REPORTING PAIN OR DISCOMFORT. CURRENTLY READING A BOOK. IVF .45NS @ 50ML/HR INFUSING. O2 @ 3L/NC. CALL LIGHT IN REACH. CPOC.
[2019-11-12 20:00] VITALS: BP 172/57
--- NOTE | 2019-11-12 23:00 | NUR ---
BEDTIME MEDS GIVEN. FSBS 138. IVF INFUSING. CPOC.
[2019-11-13] VITALS: BP 170/59
[2019-11-13 04:00] VITALS: BP 185/66
[2019-11-13 06:05] LABS: BASOPHILS 0.5 % (0-2); EOSINOPHILS 2.8 % (0-7); HEMATOCRIT 30.8 % (36.0-48.0); IMMATURE GRANULOCYTES 0.5 % (0-5); LYMPHOCYTES 23.9 % (15-50); MCH 30.1 pg (26.0-34.0); MCHC 32.5 g/dL (31.0-37.0); MCV 92.8 fL (80.0-100.0); MEAN PLATELET VOLUME 10.1 fL (7.4-10.4); MONOCYTES 7.7 % (2-11); NEUTROPHILS 64.6 % (40-80); PLATELET COUNT 196 10x3/uL (130-400); RBC 3.32 10x6/uL (4.00-5.40)
[2019-11-13 06:28] LABS: CALCIUM 7.9 mg/dL (8.5-10.1); CARBON DIOXIDE 21.5 mmol/L (21.0-32.0); CREATININE - SERUM 1.7 mg/dL (0.6-1.3); POTASSIUM - SERUM 3.5 mmol/L (3.5-5.1)
--- NOTE | 2019-11-13 06:40 | NUR ---
PT HAS RESTED THROUGH THE NIGHT WITH NO DISTRESS. CLEAN/DRY. IVF INFUSING. NO DISTRESS.
--- NOTE | 2019-11-13 07:00 | NUR ---
RECEIVED REPORT. ASSUMED CARE OF PATIENT. PT RESTING WITH EYES CLOSED. RESP EVEN AND UNLABORED. IV FLUIDS INFUSING ORDERED. CALL LIGHT WITHIN REACH. PATIENT TO DISCHARGE TO INPATIENT REHAB TODAY.
[2019-11-13 10:56] VITALS: BP 157/70
--- NOTE | 2019-11-13 11:36 | NUR ---
FSBS 180. 4 UNITS HUMALOG ADMINISTERED PER SLIDING SCALE. NO DISTRESS.
--- NOTE | 2019-11-13 13:03 | NUR ---
MEDICATED FOR NECK PAIN AT THIS TIME. NO DISTRESS.
[2019-11-13 14:31] VITALS: BP 151/51
--- NOTE | 2019-11-13 14:54 | NUR ---
REPORT GIVEN TO MELANIE ON REHAB. REHAB NOT READY FOR PATIENT AT THIS TIME.
--- NOTE | 2019-11-13 14:55 | NUR ---
REPORT GIVEN TO MELANIE IN REHAB. PATIENT TO UNIT SOON.
--- NOTE | 2019-11-13 16:39 | NUR ---
FSBS 128. NO INSULIN PER SLIDING SCALE.
--- NOTE | 2019-11-13 16:43 | NUR ---
20 GAUGE IV REMOVED FROM RIGHT WRIST. CATHETER TIP INTACT. NO BLEEDING FROM SITE. 2X2 APPLIED AND SECURED WITH BANDAID. 20 GAUGE IV REMOVED FROM RIGHT FOREARM. CATHETER TIP INTACT. NO BLEEDING FROM SITE. 2X2 GAUZE APPLIED AND SECURED WITH BANDAID.
--- NOTE | 2019-11-13 17:10 | NUR ---
PATIENT TRANSFERRED TO REHAB UNIT VIA WHEELCHAIR TO ROOM 1116. ALL PERSONAL BELONGINGS SENT WITH PATIENT. PATIENT IN NO DISTRESS UPON LEAVING UNIT. PM MEDICATIONS DUE AT 2100 SENT WITH PATIENT DUE TO PHARMACY ALREADY BEING CLOSED AND PATIENT REQUIRES ANTIHYPERTENSIVE MEDICATIONS THAT CANNOT BE MISSED OR A DELAY IN ADMINISTRATION.
--- NOTE | 2019-11-14 09:15 | MORECARE ---
CASE MANAGEMENT DISCHARGE SUMMARY PATIENT: MARY MABRY UNIT: [id number] ADM DATE: 10/27/19 AGE: 79 : 38 SEX: F ROOM/BED: D.2131 AUTHOR: ANH LEE PHYSICIAN: REFERRING PHYSICIAN: RIMA WYLIE MD DATE OF SERVICE: 11/14/19 Discharge Plan Patient Name: MARY MABRY Facility: [facility]:[place] : 1940 Planned Disposition: Anticipated Discharge Date: Discharge Date: 11/13/2019 Expected LOS: Initial Reviewer: [email or web address] Initial Review Date: 10/28/2019 Generated: 11/14/19 10:15 am Comments DCP- Discharge Planning Updated by [id number]: Janessa Antonio on 11/12/19 2:[address] Patient Name: MARY MABRY Admission Status: ER Accout number: [id number] Admission Date: 10-27-2019 : 1940 Admission Diagnosis: Attending: RIMA WYLIE Current LOS: 16 Anticipated DC Date: Planned Disposition: Primary Insurance: MEDICARE A & B Discharge Planning Comments: REVEIVED CALL FROM [facility] AND THEY WILL ACCEPT PATIENT TOMORROW. FAMILY NOTIFIED. Strategic Account Executive: Janessa Antonio DCP- Discharge Planning Updated by [email or web address]: Janessa Antonio on 11/12/19 1:[address] Patient Name: MARY MABRY Admission Status: ER Accout number: [id number] Admission Date: 10-27-2019 : 1940 Admission Diagnosis: Attending: RIMA WYLIE Current LOS: 16 Anticipated DC Date: Planned Disposition: Primary Insurance: MEDICARE A & B Discharge Planning Comments: CM SPOKE WITH PATIENT AND HER DAUGHTER. SHE WANTS [facility], I CONTACTED [facility] AND WAITING TO SEE IF THEY CAN ACCEPT HER. SHE SAID IF THEY COULD IT WOULD BE TOMORROW. KEV SIGNED FOR [facility]. IMM SIGNED. WAITING FOR CALL BACK FROM [facility] TO PROCEED FORWARD. Strategic Account Executive: Janessa Antonio DCP- Discharge Planning Updated by [id number]: Shannon Singleton on 10/28/19 7:[address] Patient Name: MARY MABRY Admission Status: ER Accout number: [id number] Admission Date: 10-27-2019 : 1940 Admission Diagnosis: Attending: RIMA WYLIE Current LOS: 1 Anticipated DC Date: Planned Disposition: Primary Insurance: MEDICARE A & B Discharge Planning Comments: CM met with patient to complete initial dc planning assessment. CM educated patient on the CM role and verbal consent given by patient to complete assessment. Patient lives at home with her daughter where she is independent with her care. At discharge patient plans to return home and feels this is a safe discharge. CM discussed availability of home health, rehab services, and medical equipment. Her daughter will be her hazardous materials driver home. Patient denied known discharge needs at this time. CM will continue to follow and will assist as needed with dc plans/needs. Strategic Account Executive: Shannon Singleton DCPIA - Discharge Planning Initial Assessment Updated by [id number]: Shannon Singleton on 10/28/19 8:04 pm * Is the patient Alert and Oriented? Yes * How many steps to enter\exit or inside your home? ramp * PCP ORTEGA * Pharmacy [facility] * Preadmission Environment Home with Family * ADLs Independent * Equipment Walker * List name and contact numbers for known caregivers / representatives who currently or will assist patient after discharge: [employer] - FELIPE - [phone] * Verbal permission to speak to the caregivers and representatives has been obtained from the patient. Yes * Community resources currently utilized None * Additional services required to return to the preadmission environment? No * Can the patient safely return to the preadmission environment? Yes * Has this patient been hospitalized within the prior 30 days at any hospital? No Coverage Notice Reviewer: [id number] Rachael Headley Notice Issued Date-Time: 10/26/2019 9:50 Notice Type: Medicare Outpatient Observation Notice Notice Delivered To: Patient Relationship to Patient: Head Grinder Name: Delivery Method: HAND - Hand Delivered Cadence Days: Prior Verbal Notification: Recipient Understood Notice: Yes Recipient Signature: Yes Med Rec Note Co-signed by Attending: Coverage Notice Comment: NADEGE SERVED, EXPLAINED, SIGNED BY PATIENT AND ORIGINAL PROVIDED AND COPY PLACED ON CHART. Reviewer: [email or web address] Rachael Antonio Notice Issued Date-Time: 11/12/2019 14:53 Notice Type: IM Discharge Notice Notice Delivered To: Patient Relationship to Patient: Head Grinder Name: Delivery Method: HAND - Hand Delivered Cadnece Days: Prior Verbal Notification: Recipient Understood Notice: Yes Recipient Signature: Yes Med Rec Note Co-signed by Attending: Coverage Notice Comment: Reviewer: [id number] Rachael Antonio Notice Issued Date-Time: 11/12/2019 14:53 Notice Type: Patient Choice Letter Notice Delivered To: Patient Relationship to Patient: Head Grinder Name: Delivery Method: HAND - Hand Delivered Cadence Days: Prior Verbal Notification: Recipient Understood Notice: Yes Recipient Signature: Yes Med Rec Note Co-signed by Attending: Coverage Notice Comment: Last DP export: 11/12/19 2:34 p Patient Name: MARY MABRY Page [id number] at 0915 All edits/amendments must be made on the electronic document DICTATION DATE: 11/14/19914 POWDER WORKER TNT: RAUL 11/14/19914 RPT#: [id number] DC DATE:11/13/19 STATUS: DIS IN [facility] [address] [place] [address] END OF REPORT
== END 2019-11-13 17:10 | DRG 304 ==
LOC: D.ER 20:19 → D.M2 10-26 00:33 → OBSVTIME 10-26 00:33 → D.ICU 10-27 14:10 → D.M2 10-27 14:53 → D.ICU 10-27 14:53 → D.M2 10-29 18:46 → D.ICU 11-03 00:33 → D.M2 11-05 18:44
PROVIDERS: Emergency Medicine; Family Medicine; Internal Medicine; ADMIT Internal Medicine Nephrology; ATTEND Internal Medicine Nephrology
DX: I16.1 Hypertensive emergency (principal); G93.41 Metabolic encephalopathy; J18.9 Pneumonia, unspecified organism; I20.0 Unstable angina; N17.9 Acute kidney failure, unspecified; N39.0 Urinary tract infection, site not specified; E11.65 Type 2 diabetes mellitus with hyperglycemia; E11.22 Type 2 diabetes mellitus with diabetic chronic kidney disease; I12.9 Hypertensive chronic kidney disease with stage 1 through stage 4 chronic kidney disease, or unspecified chronic kidney disease; N18.9 Chronic kidney disease, unspecified; F03.90 Unspecified dementia, unspecified severity, without behavioral disturbance, psychotic disturbance, mood disturbance, and anxiety; D63.1 Anemia in chronic kidney disease; B95.2 Enterococcus as the cause of diseases classified elsewhere; Z66 Do not resuscitate; Z87.891 Personal history of nicotine dependence

== ENCOUNTER 2019-11-13 18:45 | Inpatient (IN) | payer MEDICARE, BC ==
[~2019-11-13] VITALS: Ht 157.5 cm; Wt 65.8 kg
--- NOTE | ~2019-11-13 | CN ---
PATIENT NAME:MARY MABRY MEDICAL RECORD: [id number] : 36 LOCATION:[facility].1116 ADMIT DATE: 11/13/19 ACCOUNT: [id number] CONSULTING PHYSICIAN: DESTINY WATERMAN MD REFERRING PHYSICIAN: MEET KNAPP MD DATE OF CONSULTATION: 11/27/2019 NEUROLOGY CONSULTATION ROOM NUMBER: 1116. REFERRING PHYSICIAN: Ranjith Knapp MD HISTORY OF PRESENT ILLNESS: Mrs. Mabry is an 79-year-old female admitted to rehab on 11/13/2019 after admission to the medical floor mid October with unstable angina and urinary tract infection with outward signs of lethargy and weakness. The patient had uncontrolled hypertension. Cardiology consultation decided to treat conservatively with medical management. The patient had bradycardia with medication adjustments and nephrology was consulted for the joioe-vt-wxdndub renal disease with history of renal artery stenosis. The patient is status post stenting on April 2019. Daughter reports that during the initial admission to medical floor, the patient had had marked lethargy and sleepiness and then with complications during hospital stay with a UTI and bradycardia displayed further episodes of poor responsiveness, but responded well and was more alert and conversive and engaged in OT, PT and speech therapy successfully. On 10/27/2019, the patient stayed in the ICU on Cardene drip for the hypertension and had an acute anemia with H and H 7.7 and 23 and had packed RBCs. UTI evaluation revealed Enterococcus faecalis and has been on antibiotic therapy. Apparently much of the patient's mentation returned to normal during this period of treatment. With the long stay, she apparently had a weakened condition and was felt to be a good candidate for rehabilitation and transferred on 11/13/2019 with a diagnosis of persistent but improved metabolic encephalopathy and persistent dementia. The patient's daughter reports that before her original hospital stay, the patient was engaged in activity and ADLs fairly well, able to participate in eating, drinking, and preparing meals and monitoring her blood sugar, but have to be reminded to take medications. While in rehab staff reports that the patient has been verbal and participatory as well, confirmed by daughter until 11/23/2019. Subsequently, the patient has displayed once again a dramatic change in responsiveness and lethargic and a mild stupor with periods of arousal characterized by patient reaching up to her head and motioning as if her neck was in pain and yelling out and even according to staff "screaming" and overall otherwise moving limbs in a quite decreased manner and falling back to sleep with the patient then demonstrating cycles of sleep and agitation, yelling out, and reaching to her head. Testing today has included laboratory testing which demonstrates CBC: White count of 9.5 with a minimal left shift of 83.7% neutrophils, which is new. The count of 9.5 a slightly higher than 11/21/2019 and significantly higher than 11/23/2019 and 11/25/2019. The laboratory evaluation today with a chem 12. A Chem-12 today demonstrated sodium of 146, potassium 3.9, BUN 37 with creatinine 2.7 suggesting the patient is slightly dry and glucose is 163. UA today demonstrated 3+ protein, ketones, nitrites, and leukocyte esterase were negative, no white cells were seen, few bacteria were present. Further testing has included imaging studies. Note that on first sign the patient demonstrating changes in responsiveness and apparent neck pain, CT of head was done on CONSULT REPORT [id number] MARY MABRY 11/26/2019 demonstrating small vessel disease and atrophy without evidence of hemorrhage, mass lesion, or edema and a cervical spine CT was done demonstrating diffuse spondylosis and some minimal subluxation of C4 on C5, no evidence of a significant disc space change or herniation of disc. Today an MRI of brain was done and demonstrated no evidence of acute ischemic infarction, no evidence of hemorrhage, no evidence of mass lesion or edema, only small vessel ischemic disease and moderate generalized atrophy consistent with her diagnosis of dementia. The patient has remained in the state of stupor punctuated by arousals with reaching to head and yelling out and thrashing about in the bed in an agitated fashion. PAST MEDICAL HISTORY: 1. Angina with coronary artery disease. 2. Carotid Doppler with severe bilateral stenosis and retrograde flow in the left vertebral, suggesting subclavian steal. 3. Alzheimer dementia. 4. Hypertension, still poorly controlled. 5. Chronic kidney disease with acute kidney disease superimposed during hospital stay. 6. Diabetes mellitus type 2. MEDICATIONS: As listed in the chart with note of Valium used for sedation. SOCIAL HISTORY: Lives with her daughter. No cigarettes, alcohol, or drugs. FAMILY HISTORY: Noncontributory. REVIEW OF SYSTEMS: As described above. No other pertinent factors on 12-point review. PHYSICAL EXAMINATION: GENERAL: The patient is observed. Supine in bed with sonorous respirations. Asleep, she arouses quickly to tactile stimulation with eyes opening, she looked straightforward, does not track examiner, does not verbalize, does not respond to commands, she reaches up to her face with painful stimuli and more vigorous stimulation. HEENT: Head is normocephalic. Face is symmetric. EYES: Pupils round and reactive, gaze is conjugate. NECK: Somewhat rigid and forced flexion produces a reaction of pain suggesting nuchal rigidity. Carotids are 1/4. No distinct bruits. HEART: Regular rate and rhythm. LUNGS: Coarse airway sounds. ABDOMEN: Positive bowel sounds. EXTREMITIES: No cyanosis, clubbing, or edema. NEUROLOGIC: The patient is not verbal. Mentation is guarded with the patient opening eyes and alerting. Otherwise, not responding appropriately and dropping back to sleep quickly. There appears indeed to be encephalopathic process occurring. Cranial nerves II-XII grossly intact. Motor exam shows the patient demonstrated symmetric strength in upper and lower extremities, reaching upward, distinct localized strength testing not done with the patient not responding to that, the patient withdraws lower extremities symmetrically to noxious stimuli. Sensory exam shows localization to touch noxious stimuli. Reflexes are 1/4 symmetrical in upper extremities and trace in the lower extremities. Babinskis are absent. CONSULT REPORT [id number] MARY MABRY IMPRESSION: Recurrent encephalopathy, apparently demonstrating symptoms of confusion and lethargy on admission, recurrent during medical floor stay and now recurrent once again without distinct imaging studies giving evidence of an acute cerebral infarction or mass lesion and with laboratory testing that was suggesting a mild leukocytosis in comparison to earlier study and normal chemistry say for mild elevated BUN or azotemia, none of which is enough to explain the patient's recurrent encephalopathy. Exam may suggest nuchal rigidity that could suggest CSF infection. With the lack of significant serum white blood cell count elevations, a CSF infection would be more likely to be a viral etiology. Early bacterial infection cannot be excluded. Evaluation for meningitis would be best done with a lumbar puncture, which the patient's daughter is in favor of. Other etiologies of recurrent encephalopathy might include a cardiac complication. RECOMMENDATION: We will cycle cardiac enzymes once to evaluate for evidence of myocardial ischemia and plan on performing a fluoroscopic-guided lumbar puncture with CSF studies to evaluate for any meningitis. We will also provide Haldol for agitation and if indeed this is simply worsening of the patient's underlying dementia, then IV Depakote may be helpful and dampening patient's agitated state as well. TRANSINT:[id number] Voice Confirmation ID: [id number] DOCUMENT ID: [id number] DESTINY WATERMAN MD CC: [id number] DICTATION DATE: 11/27/191520 ROOFING TILE SORTER: 11/27/19 2214 ADM IN [facility] [address] [place] [address]
[~2019-11-13 18:45] MED LIST: ACETAMINOPHEN325 MG PO; ASPIRIN EC81 M1 PO; BASAGLAR K100 UNIT/1 SC; CARDENE20 MG PO; CARDURA4 MG PO; COREG12.5 MG PO; FER-IN-SOL DROP50 ML PO; FLOMAX0.4 MG PO; HCTZ25 MG PO; HYDRALAZINE HCL50 MG PO; LIPITOR20 MG PO; LISINOPRIL10 MG PO; LYRICA75 MG PO; NORVASC10 MG PO; NOVOLOG100 UNIT/1 SC; ZYLOPRIM300 MG PO
--- NOTE | 2019-11-13 19:00 | NUR ---
PT RESTING IN BED WITH EYES OPEN. ALERT TO SELF. CONFUSED TO TIME, PLACE AND SITUATION. PT DID STATE: "THANK YOU FOR COMING TO SEE ME. I THOUGHT I WAS TAKEN HERE AND ABANDONED." I ASSURED PT WE WERE WAITING ON ADMISSIONS TO GET HER IN THE COMPUTER, AND THEN WOULD BE IN TO GET HER ADMITTED TO REHAB. PT DENIES ANY NEEDS AT THIS TIME, BUT MOST QUESTIONS ASKED, SHE REPLIES: "IM NO SURE." SR'S ARE UP X 3 IN BED. CALL LIGHT AND BEDSIDE TABLE ARE WITHIN EASY REACH.
[2019-11-13 20:00] VITALS: BP 171/62
--- NOTE | 2019-11-13 21:47 | NUR ---
PT IS RESTING IN BED WATCHING TV. NO NEEDS VOICED.
[2019-11-13 23:10] VITALS: BP 171/62; BMI 26.6
--- NOTE | 2019-11-14 00:01 | NUR ---
PT IS RESTING QUIETLY IN BED WITH EYES CLOSED. RESPS ARE EVEN AND UNLABORED. NO ACUTE DISTRESS NOTED.
--- NOTE | 2019-11-14 05:00 | NUR ---
PT RESTING QUIETLY IN BED WITH EYES CLOSED. AWOKE TO CHECK ON STATUS OF INC. NO INCONTINENCE NOTED.
--- NOTE | 2019-11-14 06:08 | NUR ---
PT RESTING IN BED WITH EYES CLOSED. AWOKE TO VERBAL STIMULI. NO INC. NOTED. PT DENIES NEED TO VOID AT THIS TIME.
[2019-11-14 06:57] LABS: ANION GAP 12.9 mmol/L (8-16); BASOPHILS 0.5 % (0-2); CALCIUM 8.1 mg/dL (8.5-10.1); CARBON DIOXIDE 21.8 mmol/L (21.0-32.0); CREATININE - SERUM 1.8 mg/dL (0.6-1.3); EOSINOPHILS 3.6 % (0-7); HEMATOCRIT 30.8 % (36.0-48.0); HEMOGLOBIN 10.2 g/dL (12-16); IMMATURE GRANULOCYTES 0.3 % (0-5); LYMPHOCYTES 23.4 % (15-50); MCH 30.5 pg (26.0-34.0); MCHC 33.1 g/dL (31.0-37.0); MCV 92.2 fL (80.0-100.0); MEAN PLATELET VOLUME 9.8 fL (7.4-10.4); MONOCYTES 7.1 % (2-11); NEUTROPHILS 65.1 % (40-80); PLATELET COUNT 186 10x3/uL (130-400); POTASSIUM - SERUM 3.7 mmol/L (3.5-5.1); RBC 3.34 10x6/uL (4.00-5.40); RDW 13.8 % (11.5-14.5); WBC 5.8 10x3/uL (4.8-10.8)
[2019-11-14 09:48] VITALS: BP 200/72
--- NOTE | 2019-11-14 10:20 | NUR ---
HAS BEEN UP WORKING WITH THERAPY. IS VERY MCGRATH. DOES MOST OF TASKS ASKED WITH ONE ATTEMPT. DENIES PAIN OR INCREASED SOB.
--- NOTE | 2019-11-14 15:23 | NUR ---
PATIENT ADMITTED TO REHAB FROM ACUTE FLOOR. DR. ORTEGA IS PATIENT PCP. DME AT HOME IS A WALKER. DISCHARGE PLANS ARE FOR PATIEN TO RETURN HOME. WILL CONTINUE TO FOLLOW WITH PATIENT.
[2019-11-14 15:48] VITALS: BMI 26.5
--- NOTE | 2019-11-14 16:47 | RHP ---
PATIENT: MARY MABRY MEDICAL RECORD: [id number] ACCOUNT: [id number] LOCATION:[facility] : [birth year] ADMISSION DATE: 11/13/19 REHABILITATION HISTORY AND PHYSICAL EXAMINATION POST ADMISSION PHYSICIAN EXAMINATION POST ADMISSION PHYSICAL EXAMINATION AND HISTORY AND PHYSICAL DATE OF ADMISSION: 11/13/2019 ADMITTING DIAGNOSIS: Acute metabolic encephalopathy. HISTORY OF PRESENT ILLNESS: The patient is an 79-year-old female patient with history of dementia, hypothyroidism, diabetes, chronic edema, chronic kidney disease, presented to the ED with lethargy and weakness. The patient's daughter reported she had been sleeping while she had had some chest pain. She has undergone a cath about a year ago in [place] with no intervention. The patient was admitted with unstable angina, uncontrolled hypertension. Cardiology consult was done. They decided to treat it conservatively with medical management only. She has had some bradycardia and had to have some adjustments. She also had nephrology consult due to dujrd-ys-kwulqsv kidney disease. The patient has had a history of renal artery stenosis. She has had a stent placed back in April of 2019. She has been followed closely during her stay. She has had OT, PT and speech therapy throughout her stay. On October 27, she had elevated blood pressures and low heart rate. Her creatinine remained elevated at 2.3. She was transferred to the ICU and placed on a Cardene drip. Her H&H was down to 7.7 and 23.0, and she did receive some packed red blood cells. She was found to have UTI with Enterococcus faecalis and has been on antibiotic therapy. She needs to be monitored closely for blood pressure control and heart rate. She is on telemetry. The patient had to require supplemental O2, electrolyte protocol, pain control. The patient has had anemia requiring blood transfusions. Got oczef-nf-safcjva confusion. Monitoring her lab values. She has decreased range of motion, decreased strength, gait disturbance, limited safety awareness. She has got medical complexity, risk for falls, cues for equipment, low endurance, and unsteady gait and balance. She fatigues easily and she has inability to care for herself. She lives with her daughter and has self-care deficit. These are all barriers to her discharge home. She lives at home with her daughter and was completely independent with her ADLs and mobility prior to this. She is currently set up for mod assist for ADLs, mod assist for mobility. She and her daughter would like to return home at her prior level of functioning or better if possible. Comorbidities include oropharyngeal dysphagia, unstable angina, acute metabolic encephalopathy. Got urinary retention. She has got pulmonary edema, normocytic anemia, diabetes, vkqsx-fs-nvfhhes kidney disease, bilateral lower extremity edema, dementia, uncontrolled hypertension. Got a history of renal artery stenosis. PAST MEDICAL HISTORY: Significant for dementia, got a history of thyroid problems, diabetes, edema, hypertension, history of chronic back pain, menopause and arthritis. PAST SURGICAL HISTORY: Includes hysterectomy. ALLERGIES: HYDROCODONE. CURRENT MEDICATIONS: Include ferrous sulfate 300 mg daily, Flomax 0.4 mg daily. HISTORY AND PHYSICAL [id number] MARY MABRY She is on atorvastatin 20 mg daily, allopurinol 150 mg daily, aspirin 81 mg daily. She is on insulin, she is on 10 units b.i.d. of Humalog. Coreg 12.5 mg b.i.d. with meals. Lyrica 75 mg b.i.d. Cardene 40 mg t.i.d., Zestril 20 mg b.i.d., Lantus 20 units at bedtime. She is on Apresoline 100 mg q.i.d. and Cardura 4 mg at bedtime and Tylenol 650 every 4 hours p.r.n. HABITS: No alcohol or tobacco use. FAMILY HISTORY: Noncontributory. SOCIAL HISTORY: The patient hopes to return back home and get back to her prior level of functioning. REVIEW OF SYSTEMS: GENERAL: Does complain of weakness and fatigue. HEENT: Denies cold, cough, or congestion. CARDIOVASCULAR: Denies chest pain. PHYSICAL EXAMINATION: VITAL SIGNS: Stable, afebrile. GENERAL: An elderly female, in no acute distress upon exam. HEENT: Normocephalic and atraumatic. Mucosa moist. NECK: Supple. No lymphadenopathy. LUNGS: Clear in the upper kemp. No wheeze, rhonchi, or rales. HEART: Regular rate and rhythm. No murmurs, rubs or gallops. ABDOMEN: Soft, benign, and nondistended. Positive bowel sounds times 4. EXTREMITIES: No clubbing, cyanosis or edema. NEUROLOGIC: She does have some mild confusion and weakness. LABORATORY DATA: White count is 5.8, H&H of 10 and 30, and platelet count was noted to be 186. Sodium 138, potassium 3.7, BUN and creatinine of 27 and 1.8, and blood sugar is noted to be 100. ASSESSMENT: This is an 79-year-old female patient admitted to the rehab with a working diagnosis of acute metabolic encephalopathy. The patient has potential to make improvement. We will institute the following multidisciplinary therapies including, but not limited to, physical, occupational, respiratory, speech, nutritional services, prosthetics, and orthotics. Given her complex medical condition and risks for more complications, rehabilitation services cannot be provided at a lower level of care such as a skilled nurse facility. PLAN: 1. Admit to [facility] for an inpatient therapy to include the following disciplines; A. Physical therapy to improve gait, all transfer skills, and bed mobility to modified independent level. B. Occupational therapy to improve activities of daily living. C. Case management to assist with discharge planning and placement options. D. Nutrition to assist with nutritional needs. E. Rehabilitation nursing to assist in monitoring the patient's underlying medical conditions and to assist with any type of bowel or bladder management. 2. The patient's current medications and medical care will be continued. 3. The patient will be placed on standard fall precautions. 4. We will watch her renal functions closely and adjust blood pressure medicines as needed. HISTORY AND PHYSICAL [id number] MARY MABRY 5. I will see her again in the a.m. TRANSINT:[id number] Voice Confirmation ID: [id number] DOCUMENT ID: [id number] DORIS notes whether there has been none or any medical/functional change since admission: - No change since prescreen. DORIS attests patient continues to be appropriate for IRF: - COntinues to be appropriate. MEET ELAM MD at 1647 CC: [id number] DICTATION DATE: 11/14/19 0955 MEDICAL TECHNICIAN: 11/14/19 1031 ADM IN [facility] [address] [place] [id number]
--- NOTE | 2019-11-14 19:30 | NUR ---
PT IS RESTING IN BED WITH EYES OPEN. ALERT TO SELF. CONFUSED TO TIME, PLACE AND SITUATION. 2 FMAILY MEMBERS ARE AT THE BEDSIDE. 02 IS ON @ 3LPM PER NC. NO SOB NOTED. PT IS HARD OF HEARING, AND DEAF IN THE RIGHT EAR. SR'S ARE UP X 2 IN BED. CALL LIGHT AND BEDSIDE TABLE ARE WITHIN EASY REACH.
[2019-11-14 20:41] VITALS: BP 178/56
--- NOTE | 2019-11-14 22:00 | NUR ---
PT IS RESTING QUIETLY IN BED WITH EYES CLOSED. RESPS ARE EVEN AND UNLABORED. NO ACUTE DISTRESS NOTED.
--- NOTE | 2019-11-15 00:43 | NUR ---
PT IS RESTING QUIETLY IN BED WITH EYES CLOSED.
--- NOTE | 2019-11-15 01:14 | NUR ---
I have reviewed this patient and I concur with the Shift Assessment completed by the Licensed Practical Nurse today this shift.
--- NOTE | 2019-11-15 04:05 | NUR ---
RESTING IN BED WITH EYES CLOSED.
--- NOTE | 2019-11-15 08:00 | NUR ---
PT RESTING IN BED WITH EYES OPEN CALL LIGHT IN REACH NO PROBLEMS WILL MONITER
--- NOTE | 2019-11-15 11:09 | NUR ---
I have reviewed this patient and I concur with the Shift Assessment completed by the Licensed Practical Nurse today this shift.
[2019-11-15 15:02] VITALS: BP 178/56
--- NOTE | 2019-11-15 19:52 | NUR ---
PATIENT RECEIVED SITTING UP IN BED. ASSESSMENT & VITAL SIGNS DONE. BED LOW. ALARM SENIOR EMBEDDED SOFTWARE ENGINEER LIGHT WITHIN REACH. WILL CONTINUE TO MONITOR.
[2019-11-15 20:00] VITALS: BP 183/54
[2019-11-16 00:07] VITALS: BP 183/54
--- NOTE | 2019-11-16 03:54 | NUR ---
PATIENT EYES CLOSED. RESPIRATIONS 18 & EVEN. BED LOW. ALARM ON. CALL LIGHT WITHIN REACH. WILL CONTINUE TO MONITOR.
--- NOTE | 2019-11-16 05:51 | NUR ---
PATIENT FSBS 101. PATIENT OUT OF BED. MINIMAL ASSIST TO TOILET. VOID ONLY. PATIENT ASSIST GETTING DRESSED. PATIENT RETURNED TO BED. CALL LIGHT WITHIN REACH. WILL CONTINUE TO MONITOR.
[2019-11-16 08:57] LABS: BASOPHILS 0.2 % (0-2); EOSINOPHILS 3.2 % (0-7); HEMATOCRIT 31.4 % (36.0-48.0); HEMOGLOBIN 10.4 g/dL (12-16); IMMATURE GRANULOCYTES 0.3 % (0-5); LYMPHOCYTES 23.8 % (15-50); MCH 30.4 pg (26.0-34.0); MCHC 33.1 g/dL (31.0-37.0); MCV 91.8 fL (80.0-100.0); MEAN PLATELET VOLUME 9.8 fL (7.4-10.4); MONOCYTES 6.5 % (2-11); PLATELET COUNT 203 10x3/uL (130-400); RBC 3.42 10x6/uL (4.00-5.40); RDW 13.8 % (11.5-14.5); WBC 6.7 10x3/uL (4.8-10.8)
[2019-11-16 09:08] LABS: ANION GAP 13.7 mmol/L (8-16); CALCIUM 8.6 mg/dL (8.5-10.1); CARBON DIOXIDE 22.8 mmol/L (21.0-32.0); CREATININE - SERUM 1.8 mg/dL (0.6-1.3); POTASSIUM - SERUM 4.5 mmol/L (3.5-5.1)
[2019-11-16 09:36] VITALS: BP 203/70
--- NOTE | 2019-11-16 10:46 | NUR ---
ALERT, BUT CONFUSED. RIGHT HAND/ARM EDEMATOUS. NO IV OR CELLULITIS NOTED. C/O DIZZINESS PER PHYSICAL THERAPY FOR THE LAST 2 DAYS WHEN SHE HAS BEEN SITTING UP. 0730 B/P RIGHT ARM: 203/70, 0930 SITTING IN W/C RIGHT: 161/55 LEFT: 72/48 PULSE 56, ELECTRONIC CUFF. 0940 SITTING N W/C RIGHT: 170/58 LEFT: 80/50 - MANUAL CUFF. PLACED IN BED, NOT FEELING WELL. LYING AT 40 DEGREES, MANUAL B/P READIN B/P RIGHT 162/56, PULSE 80, BOUNDING RADIAL. LEFT ARM 82/50, PULSE 68, FAINT RADIAL. O2 SATS [address] ELAM NOTIFIED OF FINDINGS. PHYSICAL THERAPY WILL WAIT UNTIL CLEARED BY .
--- NOTE | 2019-11-16 16:00 | NUR ---
CARE TEAM MEETING: PATIENT WAS DISCUSSED . SHE IS NEW TO UNIT AND WILL BE RA AT NEXT MEETING. WILL CONTINUE TO FOLLOW WITH PATIENT.
[2019-11-16 18:04] VITALS: BP 190/60
[2019-11-16 18:06] VITALS: BP 99/56
--- NOTE | 2019-11-16 18:12 | NUR ---
BS: 220 AT 1630. ALERT, CONFUSED. DAUGHTER CAME TO VISIT. B/P AT 1730 RIGHT ARM 190/60, PULSE 66. B/P AT 1730 LEFT ARM 99/56, PULSE 64. HELD BP MEDS PER MD ORDERS. DR ELAM IS HAVING CV SURGEON CONSULT. WILL CONTINUE TO MONITOR. NO SIGNS OF DISTRESS.
--- NOTE | 2019-11-16 19:10 | NUR ---
PT RECIEVING VENOUS DOPPLER PROCEDURE AT THIS TIME. CL IN REACH. DAUGHTER IN ROOM. DENIES NEEDS AT THIS TIME. WCTM
[2019-11-16 20:51] VITALS: BP 208/64
[2019-11-16 20:52] VITALS: BP 115/61
[2019-11-17 09:21] VITALS: BP 199/72
[2019-11-17 11:10] VITALS: Ht 157.5 cm; Wt 65.8 kg
--- NOTE | 2019-11-17 18:24 | NUR ---
B/P READINGS SITTING IN CHAIR AT BEDSIDE. LEFT ARM 91/58 RIGHT ARM 176/91. DAUGHTER STATES THIS IS NOT A NEW PROBLEM WITH HER. 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 PT IS A/A/O X2 TO PERSON, PLACE. NO APAPRENT PROBLEMS AT THIS TIME.
--- NOTE | 2019-11-17 18:58 | NUR ---
BEDSIDE REPORT COMPLETE. PT LYING IN BED WATCHING TV. ALERT AND ORIENTED X2. REORIENTED TO TIME AND SITUATION. DENIE ANY NEEDS OR PAIN. RR EVEN AND UNLABORED. CL IN REACH. FALL PRECAUTIONS IN PLACE. WILL CONTINUE TO MONITOR
[2019-11-17 22:57] VITALS: BP 221/67
--- NOTE | 2019-11-17 23:36 | NUR ---
PT LYING IN BED ON RIGHT SIDE EYES CLOSED RESTING. RR EVEN AND UNLABORED. CL IN REACH
--- NOTE | 2019-11-18 04:00 | NUR ---
PT LYING IN BED ON LEFT SIDE EYES CLOSED RESTING. NO SIGNS OF ACUTE DISTRESS NOTED. CL IN REACH
[2019-11-18 06:45] LABS: ANION GAP 12.1 mmol/L (8-16); CARBON DIOXIDE 22.1 mmol/L (21.0-32.0); CREATININE - SERUM 1.8 mg/dL (0.6-1.3)
[2019-11-18 06:55] LABS: BASOPHILS 0.3 % (0-2); EOSINOPHILS 3.4 % (0-7); HEMATOCRIT 28.3 % (36.0-48.0); IMMATURE GRANULOCYTES 0.3 % (0-5); LYMPHOCYTES 28.9 % (15-50); MCH 29.7 pg (26.0-34.0); MCHC 31.8 g/dL (31.0-37.0); MCV 93.4 fL (80.0-100.0); MEAN PLATELET VOLUME 10.3 fL (7.4-10.4); MONOCYTES 11.1 % (2-11); PLATELET COUNT 203 10x3/uL (130-400); RBC 3.03 10x6/uL (4.00-5.40); WBC 6.7 10x3/uL (4.8-10.8)
[2019-11-18 06:56] LABS: POTASSIUM - SERUM 5.2 mmol/L (3.5-5.1)
--- NOTE | 2019-11-18 08:15 | NUR ---
PT RESTING IN BED WITH EYES OPEN CALL LIGHT IN REACH NO PROBLEMS WILL MONITER
--- NOTE | 2019-11-18 08:39 | NUR ---
NUTRITION F/U PT WITH GOOD INTAKE DIABETIC DIET. ALSO DRINKING GLUCERNA SHAKES TID. REPORTS HER APPETITE IS GOOD. WILL CONTINUE TO PROVIDE CURRENT DIET AND GLUCERNA. MONITOR PO INTAKE. RD FOLLOWING
[2019-11-18 09:52] VITALS: BP 206/74
--- NOTE | 2019-11-18 18:22 | NUR ---
PT RESTING IN BED WITH EYES OPEN CALL LIGHT IN REACH WILL MONITER
--- NOTE | 2019-11-18 19:28 | NUR ---
PT LYING IN BED WATCHING TV.CL IN REACH. DENIES NEEDS OR PAIN AT THIS TIME. BED IN LOW SIDE RAILS X2. A/O X2. CONFUSED. LUNGS CLEAR. BOWEL ACTIVE X4. RESP EVEN AND UNLABORED. WILL CONTINUE TO MONITOR.
[2019-11-19 02:18] VITALS: BP 224/65
--- NOTE | 2019-11-19 02:18 | NUR ---
I have reviewed this patient and I concur with the Shift Assessment completed by the Licensed Practical Nurse today this shift.
[2019-11-19 07:30] VITALS: BP 134/71
--- NOTE | 2019-11-19 09:00 | NUR ---
IN TREATMENT ROOM,VS AND ASSESSMENT DONE.MEDS TAKEN WITHOUT DIFFICULTY.WILL CONTINUE WITH CURRENT PLAN OF CARE.
[2019-11-19 20:13] VITALS: BP 125/74
--- NOTE | 2019-11-19 22:21 | NUR ---
PT IN BED WATCHING TV, PLEASANT, NO NEEDS NOTED OR VERBALIZED, FALL PRECAUTIONS IN PLACE
--- NOTE | 2019-11-20 10:28 | NUR ---
FSBS READING 31, GIVEN GLUCAGON 1 MG. PT IS C/O DIZZINESS BUT RESPONDS TO VOICE COMMANDS AND ANSWERS QUESTIONS
--- NOTE | 2019-11-20 10:44 | NUR ---
NO LONGER C/O DIZZINESS, MORE ALERT AND FSBS IS 51. REFUSED HER BREAKFAST THIS MORNING, BUT WAS GIVEN SOME ORANGE JUICE WITH SUGAR IN IT ALONG WITH THE GLUCAGON,
--- NOTE | 2019-11-20 11:01 | NUR ---
GAVE PT A CONTAINER OF PUDDING AND FSBS UP TO 57
--- NOTE | 2019-11-20 11:35 | NUR ---
FSBS NOW UP TO 81. PT ASST UP TO BATHROOM AND TOLERATED WITH NO APPARENT PROBLEMS.
[2019-11-20 12:43] VITALS: BP 164/98
--- NOTE | 2019-11-20 14:00 | NUR ---
I have reviewed this patient and I concur with the Shift Assessment completed by the Licensed Practical Nurse today this shift.
[2019-11-20 19:41] VITALS: BP 249/86
--- NOTE | 2019-11-20 23:21 | NUR ---
PT IN BED, DINNER TRAY ON BED TABLE UNTOUCHED, TRIED TO COAX PT TO EAT W/O SUCCESS. GREETED PT PT NOT HUNGRY, WEAK, TIRED, NAME ON BOARD
[2019-11-21 06:59] LABS: BASOPHILS 0.2 % (0-2); EOSINOPHILS 2.6 % (0-7); HEMATOCRIT 27.5 % (36.0-48.0); HEMOGLOBIN 8.9 g/dL (12-16); IMMATURE GRANULOCYTES 0.2 % (0-5); LYMPHOCYTES 22.1 % (15-50); MCH 30.1 pg (26.0-34.0); MCHC 32.4 g/dL (31.0-37.0); MCV 92.9 fL (80.0-100.0); MEAN PLATELET VOLUME 10.3 fL (7.4-10.4); MONOCYTES 8.9 % (2-11); PLATELET COUNT 212 10x3/uL (130-400); RBC 2.96 10x6/uL (4.00-5.40); RDW 13.8 % (11.5-14.5); WBC 9.2 10x3/uL (4.8-10.8)
--- NOTE | 2019-11-21 07:57 | NUR ---
ALERT AND ORIENTED X2. EATING BREAKFAST. NO C/O PAIN. RESP EVEN AND UNLABORED. CL IN REACH.
[2019-11-21 08:00] VITALS: BP 134/75
[2019-11-21 08:50] LABS: ANION GAP 13.5 mmol/L (8-16); CALCIUM 8.2 mg/dL (8.5-10.1); CARBON DIOXIDE 21.7 mmol/L (21.0-32.0); CREATININE - SERUM 1.6 mg/dL (0.6-1.3); POTASSIUM - SERUM 5.2 mmol/L (3.5-5.1)
--- NOTE | 2019-11-21 12:18 | NUR ---
PARTICIPATED IN THERAPY TODAY. EATING LUNCH AT THIS TIME.
--- NOTE | 2019-11-21 15:20 | NUR ---
NO CHANGE IN ASSESSMENT. RESTING QUIETLY WO DISTRESS. CL IN REACH.
--- NOTE | 2019-11-21 19:20 | NUR ---
PT LYING IN BED. CL IN REACH. DENIES NEEDS OR PAIN AT THIS TIME. BED IN LOW SIDE RAILS X2. LUNGS CLEAR. BOWEL ACTIVE X4. A/O X2. CONFUSED WITH TIME AND SITUATION. RESP EVEN AND UNLABORED. WILL CONTINUE TO MONITOR.
[2019-11-21 20:00] VITALS: BP 238/79
--- NOTE | 2019-11-22 02:25 | NUR ---
I have reviewed this patient and I concur with the Shift Assessment completed by the Licensed Practical Nurse today this shift.
--- NOTE | 2019-11-22 07:30 | NUR ---
RESTING QUIETLY POSITIONED ON BACK WITH EYES CLOSED. RESP EVEN AND UNLABORED. SIDERAILS UP X 2, CALL LIGHT IN REACH AND BED IN LOW LOCKED POSITION. NO APPARENT NEW PROBLEMS.
[2019-11-22 08:03] VITALS: BP 154/88
--- NOTE | 2019-11-22 08:30 | NUR ---
PT UP TO SHOWER WITH OT. TOLERATED WELL.
--- NOTE | 2019-11-22 19:10 | NUR ---
PT LYING IN BED RESTING QUIETLY. CL IN REACH. NO DISTRESS NOTED. BED IN LOW SIDE RAILS X2. DAUGHTER IN ROOM. RESP EVEN AND UNLABORED. A/O X2 CONFUSED TO TIME AND SITUATION. LUNGS CLEAR. BOWEL ACTIVE X4. PT DOES HAVE 2+ PITTING EDEMA TO BILATERAL LEGS. NOTE LEFT FOR DOC. WILL CONTINUE TO MONITOR.
[2019-11-22 20:16] VITALS: BP 246/80
--- NOTE | 2019-11-23 01:16 | NUR ---
PT LYING IN BED SUPINE EYES CLOSED RESTING. RR EVEN AND UNLABORED. CL IN REACH
--- NOTE | 2019-11-23 05:52 | NUR ---
I have reviewed this patient and I concur with the Shift Assessment completed by the Licensed Practical Nurse today this shift.
[2019-11-23 07:53] LABS: BASOPHILS 0.3 % (0-2); EOSINOPHILS 2.9 % (0-7); HEMATOCRIT 26.5 % (36.0-48.0); HEMOGLOBIN 8.8 g/dL (12-16); IMMATURE GRANULOCYTES 0.1 % (0-5); LYMPHOCYTES 26.1 % (15-50); MCH 30.1 pg (26.0-34.0); MCHC 33.2 g/dL (31.0-37.0); MEAN PLATELET VOLUME 9.7 fL (7.4-10.4); MONOCYTES 10.1 % (2-11); NEUTROPHILS 60.5 % (40-80); PLATELET COUNT 171 10x3/uL (130-400); RBC 2.92 10x6/uL (4.00-5.40); RDW 13.5 % (11.5-14.5)
[2019-11-23 07:58] LABS: MCV 90.8 fL (80.0-100.0); WBC 6.8 10x3/uL (4.8-10.8)
[2019-11-23 08:09] LABS: ANION GAP 14.8 mmol/L (8-16); CALCIUM 8.1 mg/dL (8.5-10.1); CARBON DIOXIDE 21.4 mmol/L (21.0-32.0); CREATININE - SERUM 1.6 mg/dL (0.6-1.3); POTASSIUM - SERUM 4.2 mmol/L (3.5-5.1)
--- NOTE | 2019-11-23 10:39 | NUR ---
ALERT AND ORIENTED X2. ASSISTED TO BR THIS AM. RESTING AT THIS TIME. NO C/O PAIN AT THIS TIME.
--- NOTE | 2019-11-23 12:49 | NUR ---
NO DISTRESS NOTED. RESP EVEN AND UNLABORED. CL IN REACH.
--- NOTE | 2019-11-23 14:28 | NUR ---
CARE TEAM MEETING: PATIENT FAMILY ATTENDED THE MEETING. THEIR QUESTIONS AND CONCERNS WERE ADDRESSED. HER DISCHARGE PLANS ARE FOR HER TO RETURN TO HER HOME WITH HER FAMILY SUPPORTING HER. FAMILY REQUEST FOR DR. CAZARES TO EVALUATE PATIENT . FAMILY IS TRYING TO OBTAIN GAURDINSHIP OF [place]AGH[place]EN[place]. WILL CONTINUE TO FOLLOW WITH PATIENT.
--- NOTE | 2019-11-23 14:44 | NUR ---
Nutrition Follow-up: Diet: Diabetic + Glucerna with meals PO intake: ~66% average x last 10 meals (varied 0-100%) Last BM: 11/23/19. WT: 145# (11/14/19), no new WT Meds noted: humalog 10U BID, lantus Labs noted: Glu 117(H), GFR 33(L), Cr 1.6(H), BUN 21(H) Recommend continue current diet and oral nutrition supplement. RD following.
--- NOTE | 2019-11-23 14:48 | NUR ---
SL PLACED TO R ARM X 1 STICK WITH 22G CATH. TO RECEIVE 1 UNIT PRBC TODAY.
[2019-11-23 15:50] VITALS: BP 145/76
--- NOTE | 2019-11-23 16:01 | NUR ---
BLOOD VERIFIED WITH OLEG PIERRE BEFORE STARTING BLOOD TRANSFUSION. CONSENT GIVEN PER DAUGHTER APOLINAR SIFUENTES PER PHONE VERIFIED WITH MYSELF AND OLEG RN. WAS UNABLE TO REACH OTHER DAUGHTER BUT SHE WAS AWARE OF BLOOD TRANSFUSION TO BE GIVEN IN TEAM CONFERENCE MEETING. VS TAKEN AND BLOOD TRANSFUSION STARTED AT 1600. PRE OP TRANSFUSION MEDS GIVEN BEFORE STARTED PER ORDER.
[2019-11-23 16:11] VITALS: BP 175/60
--- NOTE | 2019-11-23 18:10 | NUR ---
BLOOD TRANSFUSION COMPLETED WO DIFFUCILTY. NO CHANGE IN ASSESSMENT. DAUGHTER HERE AT THIS TIME.
[2019-11-23 18:13] VITALS: BP 169/65
--- NOTE | 2019-11-23 19:15 | NUR ---
AWAKE AND ALERT NOTED CONFUSION. DISORIENTED TO TIME AND PLACE. RESPIRATIONS UNLABORED. RIGHT AC SALINE LOCK INTACT WITH NO SIGNS OF INFILTRATION. NO ACUTE DISTRESS NOTED. CALL LIGHT IN REACH.
--- NOTE | 2019-11-24 01:10 | NUR ---
RESTING IN BED WITH RESPIRATIONS UNLABORED. NO DISTRESS NOTED. CALL LIGHT IN REACH.
--- NOTE | 2019-11-24 02:41 | NUR ---
C/O NECK PAIN. KEEPS ARMS ABOVE HEAD AND WILL NOT KEEP THEM AT HER SIDES. MEDICATED WITH TYLENOL FOR PAIN. SEE MAR. WARM SHEET PROVIDED TO NECK AREA. WILL CONTINUE TO [id number].
--- NOTE | 2019-11-24 05:34 | NUR ---
QUIET HOURS. NO ACUTE CHANGES IN CONDITION THIS SHIFT. RESTING IN BED WITH NO DISTRESS NOTED. SALINE LOCK TO RIGHT AC INTACT WITH NO SIGNS OF INFILTRATION.
[2019-11-24 07:37] VITALS: BP 131/65
--- NOTE | 2019-11-24 08:00 | NUR ---
SHIFT ASSMT COMPLETED.BREAKFAST GIVEN.OOB TO BEDSIDE TABLE.CL IN REACH.STILL HOLDS ONTO NECK.
--- NOTE | 2019-11-24 11:44 | NUR ---
CONSUMED LUNCH AND HANK THERAPY.REMAINS UP IN WC.
--- NOTE | 2019-11-24 14:56 | CN ---
PATIENT NAME:MARY MABRY MEDICAL RECORD: [id number] : 36 LOCATION:[id number] ADMIT DATE: 11/13/19 ACCOUNT: [id number] CONSULTING PHYSICIAN: KIRSTIN SPAULDING MD REFERRING PHYSICIAN: MEET KNAPP MD DATE OF CONSULTATION: 11/23/2019 Psychiatric Consultation IDENTIFYING DATA: The patient is 79 years old and she currently is admitted to the rehabilitation unit. CHIEF COMPLAINT: Memory impairment. HISTORY OF PRESENT ILLNESS: The patient has a history of dementia. This is documented by the ER physician as well as Dr. Knapp. She also has a history of hypothyroidism, diabetes, chronic edema, chronic kidney disease and apparently came to the ER with the complaints of lethargy and weakness. She was admitted to the rehabilitative facility for physical and occupational therapy with the hope of assisting her with deconditioning. There have been no behavior problems and no significant mood issues. Apparently, the family is wanting to obtain guardianship. MENTAL STATUS EXAMINATION: The patient is awake, alert and oriented to person and place and somewhat to time and situation. Her mood is euthymic. Her affect is appropriate. Thought processes are goal directed. Memory, concentration, and abstraction abilities are impaired. She denies any intent to harm herself or others as well as psychotic symptoms. 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 PLAN: The patient is not capable of making reasonable informed consent decisions about her person or state. It is unclear to me if this is a longstanding issue and I suspect it is not going to improve with time or any kind of underlying treatment. I would recommend a cholinesterase inhibitor. I think her long-term prognosis is guarded and certainly she is going to be in need of significant degree of supervision upon discharge. I will go ahead and start her on Aricept. TRANSINT:[id number] Voice Confirmation ID: [id number] DOCUMENT ID: [id number] KIRSTIN SPAULDING MD at 1456 CC: [id number] DICTATION DATE: 11/23/19 165 ORACLE SPECIALIST: 11/23/19 2149 [place] [address]
--- NOTE | 2019-11-24 16:00 | NUR ---
RESTING QUIETLY.CONTINUES TO HOLD NECK WITH ARMS.REMAINS SILENT TODAY UNLESS SPOKEN TO.CL IN REACH.
--- NOTE | 2019-11-24 17:00 | NUR ---
UP OOB TO CHAIR FOR SUPPER.
--- NOTE | 2019-11-24 18:10 | NUR ---
GREETED PATIENT AND INTRODUCED MYSELF HER NURSE. PATIENT IS LAYING IN BED MOANING AT THIS TIME, BUT UNABLE TO TELL ME IF SHE IS HURTING ANYWHERE. RESPIRATIONS EVEN. NO S/S OF DISTRESS. CALL LIGHT IN REACH.
--- NOTE | 2019-11-24 19:10 | NUR ---
GREETED PATIENT AND INTRODUCED MYSELF HER NURSE. PATIENT IS RESTING IN BED AT THIS TIME MOANING. ASKED PATIENT TO TELL ME WHERE SHE WAS HURTING BUT PATIENT UNABLE TO COMMUNICATE THE LOCATION. RESPIRATIONS EVEN. NO S/S OF DISTRESS. CALL LIGHT IN REACH.
[2019-11-24 19:30] VITALS: BP 105/77
--- NOTE | 2019-11-25 02:58 | NUR ---
PT RESTING QUIETLY WITH EYES CLOSED. RESPIRATIONS EVEN. NO S/S OF DISTRESS. CALL LIGHT IN REACH.
[2019-11-25 06:19] LABS: BASOPHILS 0.4 % (0-2); EOSINOPHILS 3.8 % (0-7); HEMATOCRIT 29.8 % (36.0-48.0); HEMOGLOBIN 9.9 g/dL (12-16); IMMATURE GRANULOCYTES 0.3 % (0-5); LYMPHOCYTES 25.7 % (15-50); MCH 29.7 pg (26.0-34.0); MCHC 33.2 g/dL (31.0-37.0); MCV 89.5 fL (80.0-100.0); MEAN PLATELET VOLUME 10.2 fL (7.4-10.4); MONOCYTES 10.3 % (2-11); NEUTROPHILS 59.5 % (40-80); PLATELET COUNT 181 10x3/uL (130-400); RBC 3.33 10x6/uL (4.00-5.40); RDW 13.7 % (11.5-14.5); WBC 6.8 10x3/uL (4.8-10.8)
--- NOTE | 2019-11-25 06:29 | NUR ---
PTS FSBS WAS 84. PATIENT IS REFUSING TO DRINK ORANGE JUICE, OR EAT APPLESAUCE OR VANILLA PUDDING.
[2019-11-25 06:31] LABS: ANION GAP 12.5 mmol/L (8-16); CALCIUM 8.3 mg/dL (8.5-10.1); CREATININE - SERUM 1.9 mg/dL (0.6-1.3)
[2019-11-25 06:35] LABS: POTASSIUM - SERUM 3.5 mmol/L (3.5-5.1)
--- NOTE | 2019-11-25 06:35 | NUR ---
SECOND ATTEMPT SUCCESSFUL. PATIENT DRANK 4 OZ OF ORANGE JUICE AND ONE VANILLA PUDDING.
[2019-11-25 08:26] VITALS: BP 127/79
--- NOTE | 2019-11-25 10:46 | NUR ---
IS NOT TALKING AND WILL GRUNT AT TIMES. SLOW TO FOLLOW SIMPLE COMMANDS. DID TAKE PO AM MEDS WITH NO PROBLEMS. KEEPS HOLDING HER NECK WITH BOTH HANDS. MAX ASST REQUIRED FOR ALL TASKS. NOW LAYING BACK DOWN IN BED RESTING QUIETLY. CALL LIGHT IN REACH
--- NOTE | 2019-11-25 15:35 | NUR ---
HAS BUE BEHIND HEAD ON NECK. KEEPS ARMS THIS WAY. HAS BEEN YELLING OUT AT TIMES, APPEARS TO BE SUDDEN PAINS SHE JERKS HER WHOLE BODY. MEDICATION GIVEN, ATTEMPTED TO REPOSITION SEVERAL TIMES BUT SHE YELLS OUT LOUDER AND WILL NOT COOPERATE. SHE IS INCONT OF B/B. SHE IS NOT EATING BUT DID SWALLOW HER MEDS CRUSHED AND IN APPLE SAUCE.
--- NOTE | 2019-11-25 19:30 | NUR ---
PATIENT RECEIVED SITTING UP IN BED. HANDS BEHIND NECK. ASSESSMENT & VITAL SIGNS DONE. PATIENT BATH TO BE GIVEN BY TECH. BED LOW. ALARM ON. CALL LIGHT WITHIN REACH. WILL CONTINUE TO MONITOR.
[2019-11-25 19:35] VITALS: BP 170/74
[2019-11-25 19:45] VITALS: BP 117/49
--- NOTE | 2019-11-25 19:45 | NUR ---
PATIENT GIVEN BED BATH BY [employer]. BED LOW. CALL LIGHT WITHIN REACH. WILL CONTINUE TO MONITOR.
--- NOTE | 2019-11-25 20:27 | NUR ---
PATIENT FSBS 95. LANTUS HELD. PATIENT NOT EATING. PATIENT DID EAT PUDDING CUP WITH MEDICATIONS. WILL CONTINUE TO MONITOR.
--- NOTE | 2019-11-25 21:29 | NUR ---
PATIENT GIVEN SKELAXIN FOR PAIN LEVEL 10. PATIENT MOANING & YELLING HELP ME. PATIENT HOLDING BACK OF NECK. BED LOW. ALARM ON. CALL LIGHT & WATER WITHIN REACXH. WILL CONTINUE TO MONITOR.
--- NOTE | 2019-11-26 00:57 | NUR ---
PATIENT YELLING "OH OH"! THIS NURSE GAVE PATIENT TYLENOL PER ORDER. BED LOW. ALARM ON. WILL CONTINUE TO MONITOR.
--- NOTE | 2019-11-26 02:34 | NUR ---
PATIENT EYES CLOSED. RESPIRATIONS 18 & EVEN. TYLENOL EFFECTIVE FOR NECK & BACK PAIN. BED LOW. ALARM ON. BEDSIDE TABLE & CALL LIGHT WITHIN REACH. WILL CONTINUE TO MONITOR.
--- NOTE | 2019-11-26 02:59 | NUR ---
I have reviewed this patient and I concur with the Shift Assessment completed by the Licensed Practical Nurse today this shift.
--- NOTE | 2019-11-26 06:25 | NUR ---
PATIENT SAYING "OH OH"! SKELAXIN PULLED & CRUSHED IN CHOCOLATE PUDDING. PATIENT REFUSED & SPAT IT OUT. SKELAXIN WASTED WITH CHARGE NURSE. BED LOW. CALL LIGHT WITHIN REACH. WILL CONTINUE TO MONITOR.
--- NOTE | 2019-11-26 08:00 | NUR ---
REFUSING SIPS OF WATER, KEEPING BOTH HANDS BEHIND HER HEAD, ON HER NECK. DOES NOT FOLLOW COMMANDS. DOES NOT ANSWER. INCONT OF URINE. REFUSING TO EAT BREAKFAST.
[2019-11-26 15:48] VITALS: BP 114/64
--- NOTE | 2019-11-26 16:07 | NUR ---
DR ELAM NOTIFIED OF PT CONDITION, CT ORDERED AND PT WAS NOT STILL ENOUGH. DR ELAM NOTIFIED AGAIN AND VALIUM ORDERED AND GIVEN. CT WAS ABLE TO BE COMPLETED. PT'S DTR IS IN ROOM WITH PT. PT IS SLEEPING PEACEFULLY IN BED.
--- NOTE | 2019-11-26 19:15 | NUR ---
PATIENT RECEIVED SITTING UP IN BED WITH ARMS UNDER HER HEAD. ASSESSMENT & VITAL SIGNS DONE. PATIENT RESTING WITH EYES CLOSED. MOANS IF AWAKENED ONLY. XRAY CALLED & THEY WILL CALL THIS NURSE BEFORE COMING DOWN. PIN CLEANER NURSE HAS VALIUM READY TO GIVE BEFORE PATIENT TAKEN FOR CT. FAMILY IN ROOM. NOTIFIED OF THIS IMFORMATION. WILL CONTINUE TO MONITOR.
--- NOTE | 2019-11-26 19:20 | NUR ---
PATIENT USED CALL LIGHT FOR ASSIST TO BATHROOM. PATIENT ONE PERSON ASSIST OUT OF BED. PATIENT ASSIST ONTO TOILET. PATIENT HAD VOID & BM. PATIENT RETUNED TO BED. FRIEND AT BEDSIDE. BED LOW. CALL LIGHT WITHIN REACH. WILL CONTINUE TO MONITOR.
[2019-11-26 19:27] VITALS: BP 192/115
--- NOTE | 2019-11-26 20:08 | NUR ---
PATIENT RECEIVED SITTING UP IN BED. ASSESSMENT & VITAL SIGNS DONE. XANDER INTACT TO LEFT HIP. NO C/O PAIN OR DISTRESS. BED LOW. CALL LIGHT WITHIN REACH. WILL CONTINUE TO MONITOR.
--- NOTE | 2019-11-26 20:38 | NUR ---
XRAY NOT HERE, CALLED NO ANSWER. PATIENT PAIN LEVEL 10. SHREDDER PICKER NURSE GAVE PATIENT VALIUM FOR PAIN CONTROL. FAMILY IN ROOM. WILL CONTINUE TO MONITOR.
--- NOTE | 2019-11-26 20:43 | NUR ---
RADIOLOGY HERE FOR CT OF PATIENT NECK PATIENT IN DEEP SLEEP, SNORING. PATIENT TAKEN IN HER BED.
--- NOTE | 2019-11-26 21:04 | NUR ---
PATIENT BACK FROM CT. PATIENT ASLEEP, EASILY AWAKENED. FAMILY IN ROOM. WILL CONTINUE TO MONITOR.
--- NOTE | 2019-11-26 21:10 | NUR ---
PATIENT HAS N/V. CLEAR EMESIS ONLY. PATIENT LEFT UP IN BED. N/V STOPPED. BEDDING CHANGED. NO MEDICATIONS GIVEN, PATIENT REFUSES, SPITS OUT. LANTUS HELD D/T PATIENT NOT EATING. PATIENT HAS HANDS BEHIND HER HEAD. NO FSBS. FAMILY IN ROOM. CALL LIGHT WITHIN REACH. ALARM ON. WILL CONTINUE TO MONITOR.
--- NOTE | 2019-11-26 23:07 | NUR ---
PATIENT CRYING OUT IN PAIN. WARM BLANKET DID NOT WORK. WARM COMPRESS TO NECK DID NOT WORK. SITTING AT BED SIDE RUBBING PATIENT ARM CALMED HER FOR A FEW MINUTES. PATIENT MEDICATIONS DUE AT MIDNIGHT & AFTER. WILL KEEP REDIRECTING PATIENT THOUGHTS BY SOOTHING HER ARM & HUMMING. WILL CONTINUE UNTIL PATIENT CAN HAVE MEDICATIONS.
--- NOTE | 2019-11-26 23:48 | NUR ---
PATIENT SCREAMING IN PAIN. ENGINEERING DEPARTMENT CHAIR NURSE GAVE PATIENT VALIUM PER ORDER. PATIENT CALM & EYES CLOSED & SNORING. BED LOW. ALARM ON. WILL CONTINUE TO MONITOR.
--- NOTE | 2019-11-27 00:09 | NUR ---
I have reviewed this patient and I concur with the Shift Assessment completed by the Licensed Practical Nurse today this shift.
--- NOTE | 2019-11-27 04:57 | NUR ---
PATIENT GIVEN BUPRENEX BY BUPRENEX PER ORDER FOR PATIENT PAIN LEVEL 10. BED LOW. ALARM ON. CALL LIGHT WITHIN REACH. WILL CONTINUE TO [facility].
--- NOTE | 2019-11-27 06:12 | NUR ---
PATIENT FSBS 139. PATIENT TOLERATED IT WELL. BED LOW. ALARM ON. CALL LIGHT WITHIN REACH. WILL CONTINUE TO MONITOR.
[2019-11-27 08:00] VITALS: BP 190/88
--- NOTE | 2019-11-27 08:00 | NUR ---
DOZES OFF BRIEFLY AND THEN WAKES UP YELLING OUT AND SQUIRMING IN BED. SHE IS STILL NOT EATING OR DRINKING. DOES NOT FOLLOW COMMANDS. INCONT OF URINE.
[2019-11-27 11:19] LABS: BASOPHILS 0.1 % (0-2); EOSINOPHILS 0.6 % (0-7); HEMATOCRIT 35.1 % (36.0-48.0); HEMOGLOBIN 11.7 g/dL (12-16); IMMATURE GRANULOCYTES 0.1 % (0-5); LYMPHOCYTES 9.3 % (15-50); MCH 30.3 pg (26.0-34.0); MCHC 33.3 g/dL (31.0-37.0); MCV 90.9 fL (80.0-100.0); MEAN PLATELET VOLUME 10.1 fL (7.4-10.4); MONOCYTES 6.2 % (2-11); NEUTROPHILS 83.7 % (40-80); RBC 3.86 10x6/uL (4.00-5.40); RDW 13.6 % (11.5-14.5); WBC 9.5 10x3/uL (4.8-10.8)
[2019-11-27 11:20] LABS: PLATELET COUNT 225 10x3/uL (130-400)
[2019-11-27 11:30] LABS: ANION GAP 18.2 mmol/L (8-16); CALCIUM 8.6 mg/dL (8.5-10.1); CARBON DIOXIDE 21.7 mmol/L (21.0-32.0); CREATININE - SERUM 2.7 mg/dL (0.6-1.3); POTASSIUM - SERUM 3.9 mmol/L (3.5-5.1)
[2019-11-27 11:36] LABS: ALBUMIN 1.9 g/dL (3.4-5.0); BILIRUBIN - DIRECT 0.06 mg/dL (0.00-0.30); BILIRUBIN - INDIRECT 0.16 mg/dL (0.00-1.00); BILIRUBIN - TOTAL 0.22 mg/dL (0.2-1.3); PROTEIN - SERUM 6.4 g/dL (6.4-8.2)
--- NOTE | 2019-11-27 13:30 | NUR ---
HAS HAD MRI OF HEAD. HAS BEEN RESTLESS MOST OF DAY, DTR IN ROOM WITH PT. DR. WATERMAN CONSULTED.
[2019-11-27 13:37] LABS: NITRITE NEGATIVE (NEGATIVE)
[2019-11-27 13:38] LABS: BILIRUBIN NEGATIVE (NEGATIVE); GLUCOSE 100 mg/dL (NEGATIVE); KETONE NEGATIVE (NEGATIVE); UROBILINOGEN NORMAL (NORMAL)
[2019-11-27 13:42] LABS: BACTERIA FEW /hpf (NEGATIVE); EPITHELIAL CELLS NSEEN /hpf (0-5); RED CELLS - URINE 0-5 /hpf (0-5); WHITE CELLS - URINE NSEEN /hpf (NEGATIVE)
--- NOTE | 2019-11-27 14:54 | NUR ---
DR WATERMAN ON UNIT. HE JUST SPOKE WITH DTR REGUARDING PT'S CONDITION AND RECENT CHANGE IN LOC. PT IS RESTING AT PRESENT. F/C DRAINING PALE YELLOW URINE. SHE IS STILL HOLDING HER NECK.
--- NOTE | 2019-11-27 15:15 | NUR ---
FC RETURNED APPX 1300 ML URINE WHEN F/C PLACED.
[2019-11-27 16:20] LABS: CKMB 6.2 U/L (0.0-3.6); CREATINE KINASE 197 UL (21-215)
--- NOTE | 2019-11-27 17:27 | NUR ---
CXR TAKEN. PT MOSTLY SEDATED FROM VALIUM. SHE STILL YELLS OUT AND WIGGLES AROUND IN BED. F/C DRAINING PALE YELLOW URINE.
--- NOTE | 2019-11-27 17:29 | NUR ---
IV RESITED TO RFA, 22G.
--- NOTE | 2019-11-27 19:00 | NUR ---
BEDSIDE REPORT COMPLETE. PT LYING IN BED RESTLESS AND CRYING OUT. PT IS NON VERBAL. REPOSITIONED ON LEFT SIDE PT HAS SETTLED DOWN SOME. RIGHT FOREARM IV WITHOUT REDNESS OR SWELLING. DRESSING C/D/I. BP 195/90 HR 94 O2 SAT 96% RA. CALL LIGHT WITHIN REACH. FALL PRECAUTIONS IN PLACE. WILL CONTINUE TO MONITOR
[2019-11-27 19:30] VITALS: BP 195/90
[2019-11-27 21:46] LABS: CKMB 6.8 U/L (0.0-3.6)
[2019-11-27 21:57] LABS: CREATINE KINASE 299 UL (21-215); TROPONIN-I 0.096 ng/mL (0.000-0.060)
--- NOTE | 2019-11-27 23:11 | NUR ---
PT LYING IN BED ON RIGHT SIDE EYES CLOSED RESTING COMFORTABLY. PT HAS FINALLY CALMED DOWN AND IS ABLE TO REST FOR NOW. F/C PATENT AND FREE FROM KINKS. CALL LIGHT WITHIN REACH. FALL PRECAUTIONS IN PLACE. WILL CONTINUE TO MONITOR
--- NOTE | 2019-11-28 02:37 | NUR ---
PT LYING IN BED SUPINE EYES CLOSED RESTING COMFORTABLY. RR EVEN AND UNLABORED. CALL LIGHT WITHIN REACH. FALL PRECAUTIONS IN PLACE. WILL CONTINUE TO MONITOR
--- NOTE | 2019-11-28 03:54 | NUR ---
PT LYING IN BED RESTLESS AND YELLING OUT. PT UNABLE TO VERBALIZE HER NEEDS OR LOCATION OF PAIN. ADMINISTERED 2MG OF HALDOL PER ORDER. INFUSING DEPACON 100ML/HR RIGHT FOREARM. CALL LIGHT WITHIN REACH
[2019-11-28 04:14] LABS: BASOPHILS 0.2 % (0-2); HEMATOCRIT 33.5 % (36.0-48.0); HEMOGLOBIN 11.2 g/dL (12-16); IMMATURE GRANULOCYTES 0.1 % (0-5); LYMPHOCYTES 12.5 % (15-50); MCH 30.2 pg (26.0-34.0); MCHC 33.4 g/dL (31.0-37.0); MCV 90.3 fL (80.0-100.0); MEAN PLATELET VOLUME 9.9 fL (7.4-10.4); MONOCYTES 6.3 % (2-11); NEUTROPHILS 79.9 % (40-80); PLATELET COUNT 223 10x3/uL (130-400); RBC 3.71 10x6/uL (4.00-5.40); RDW 13.4 % (11.5-14.5)
--- NOTE | 2019-11-28 04:45 | NUR ---
BEDBATH GIVEN. PT LYING IN BED EYES CLOSED RESTING COMFORTABLY. RR EVEN AND UNLABORED. CALL LIGHT WITHIN REACH. FALL PRECAUTIONS IN PLACE. WILL CONTINUE TO MONITOR
[2019-11-28 04:49] LABS: CALC OSMOLALITY 306 mosm/kg (275-300); CALCIUM 8.8 mg/dL (8.5-10.1); CARBON DIOXIDE 24.4 mmol/L (21.0-32.0); CHLORIDE - SERUM 114 mmol/L (98-107); CKMB 6.6 U/L (0.0-3.6); CREATINE KINASE 250 UL (21-215); CREATININE - SERUM 2.5 mg/dL (0.6-1.3); GLUCOSE 134 mg/dL (74-106); SODIUM 149 mmol/L (136-145); UREA NITROGEN 37 mg/dL (7-18); eGFR NON AFRICAN AMERICAN 20 mL/min (90-120)
[2019-11-28 04:53] LABS: TROPONIN-I 0.135 ng/mL (0.000-0.060)
[2019-11-28 08:00] VITALS: BP 225/111
[2019-11-28 09:47] LABS: INR 1.14 (0.85-1.17); PROTIME 14.6 SECONDS (11.6-15.0)
[2019-11-28 09:48] LABS: APTT 29.4 SECONDS (22.8-39.4)
--- NOTE | 2019-11-28 11:25 | NUR ---
LAYING IN BED, SLIGHTLY RESTLESS. OCCAS. PULLS ON F/C TUBE. DOES NOT SWALLOW AT ALL. DOES NOT FOLLOW COMMANDS OR TRACK WITH EYES. MOANS AND GROANS AT TIMES BUT IS NOT YELLING OUT AT PRESENT. DTR HAS BEEN HER THIS AM. PT IS SCHEDULED FOR LUMBAR PUNCTURE TODAY, RADIOLOGIST DOES NOT FEEL COMFORTABLE WITH PT BEING ON REHAB FLOOR AND WILL NOT DO LP TILL SHE IS IN ACUTE SETTING. DR ELAM NOTIFIED, ORDERS GIVEN TO MOVE PT TO ACUTE CARE. DTR NOTIFIED OF PENDING MOVE.
--- NOTE | 2019-11-28 13:28 | NUR ---
PT TAKEN VIA BED TO #2210 REPORTED IN PERSON TO GABBY BAEZA. PT DTR WAS THERE.
--- NOTE | 2019-11-28 13:49 | NUR ---
DUE TO CHANGE IN MEDICAL CONDTION PATIENT DISCHARGED FROM REHAB AND ADMITTED TO ACUTE FLOOR.
== END 2019-11-28 13:29 | disposition critical access hospital (66) | DRG 71 ==
LOC: D.REHAB 18:45
PROVIDERS: General Practice; Psychiatry & Neurology Neurology; ADMIT Emergency Medicine; ATTEND Emergency Medicine
DX: G93.41 Metabolic encephalopathy (principal); J81.1 Chronic pulmonary edema; N17.9 Acute kidney failure, unspecified; I25.110 Atherosclerotic heart disease of native coronary artery with unstable angina pectoris; N39.0 Urinary tract infection, site not specified; R13.12 Dysphagia, oropharyngeal phase; R33.9 Retention of urine, unspecified; D64.9 Anemia, unspecified; I12.9 Hypertensive chronic kidney disease with stage 1 through stage 4 chronic kidney disease, or unspecified chronic kidney disease; N18.9 Chronic kidney disease, unspecified; G30.9 Alzheimer's disease, unspecified; F02.80 Dementia in other diseases classified elsewhere, unspecified severity, without behavioral disturbance, psychotic disturbance, mood disturbance, and anxiety; E11.22 Type 2 diabetes mellitus with diabetic chronic kidney disease

== ENCOUNTER 2019-11-28 12:04 | Inpatient (IN) | payer MEDICARE, BC ==
[~2019-11-28] VITALS: Ht 157.5 cm; Wt 66.1 kg
--- NOTE | ~2019-11-28 | EEG ---
PATIENT:MARY MABRY MEDICAL RECORD: [id number] DATE OF : 36 LOCATION:D.CV0 D.CVI ADMISSION DATE: 11/28/19 REFERRING PHYSICIAN: INTERPRETING PHYSICIAN: DESTINY WATERMAN MD DATE OF SERVICE: 11/30/2019 EEG date 11/30/2019, ordered by Dr. Waterman. CASE HISTORY: An 79-year-old female with recurrent encephalopathy. Procedure EEG done as a routine bedside portable recording using the standard 10-20 international electrode system. A 16-channel was used with 17th as EKG. photic stimulation done as activation procedure. DESCRIPTION: EEG opens with the patient poorly responsive with record displaying diffuse background theta and delta slowing of low to moderate amplitude. Best background organization was 5-6 Hz with prominent slower 4 Hz slowing. No epileptiform change such as spike polyspike or spike and wave was seen. No triphasic waves, PLEDs, or brushes were seen. Photic stimulation did not yield a photoparoxysmal response. IMPRESSION: Moderately abnormal EEG with diffuse background slowing that would be consistent with encephalopathy with differential etiologies of background degenerative process associated with dementing illness. TRANSINT:[id number] Voice Confirmation ID: [id number] DOCUMENT ID: [id number] DESTINY WATERMAN MD CC: [id number] DICTATION DATE: 11/30/191916 CRANE ENGINEER: 12/01/19 1117 ADM IN [facility] [address] [place] [address]
--- NOTE | ~2019-11-28 | OP ---
PATIENT NAME: MARY MABRY MEDICAL RECORD: [id number] :36 LOCATION:D.CVI D.CV08 ADMISSION DATE:11/28/19 SURGEON: IVONNE GARCIA MD DATE OF OPERATION: 12/03/2019 PREOPERATIVE DIAGNOSES: 1. Need for IV access. 2. Autoimmune encephalopathy. 3. Chronic kidney disease. 4. Hypertension. 5. Left subclavian artery steal syndrome. POSTOPERATIVE DIAGNOSES: 1. Need for IV access. 2. Autoimmune encephalopathy. 3. Chronic kidney disease. 4. Hypertension. 5. Left subclavian artery steal syndrome. PROCEDURE: Right subclavian vein triple-lumen central venous line placement. SURGEON: Ivonne Garcia MD REPORT OF PROCEDURE: The patient's right chest was prepped and draped in sterile fashion. A 5 cc of 1% lidocaine with epinephrine was infused into the surrounding tissues. A needle was used to cannulate the right subclavian vein and the guidewire was advanced with ease. Over this wire, a dilator was placed followed by the triple lumen catheter. The catheter aspirated nonpulsatile dark blood and flushed easily in all 3 ports. This was sutured into place with 3-0 nylons and dressed appropriately. COMPLICATIONS: None. CONDITION: Stable. ANESTHESIA: Local. BLOOD LOSS: Minimal. Procedure done at the bedside. TRANSINT:[id number] Voice Confirmation ID: [id number] DOCUMENT ID: [id number] IVONNE GARCIA MD CC: [id number] DICTATION DATE: 12/03/19 1220 SPRING COVERER: 12/03/19 1600 ADM IN [place] [id number] [place] [address]
[2019-11-28 15:16] VITALS: BP 168/102; BMI 20.1
[2019-11-28 16:27] LABS: ALBUMIN 1.6 g/dL (3.4-5.0); ANION GAP 17.3 mmol/L (8-16); BILIRUBIN - TOTAL 0.29 mg/dL (0.2-1.3); CALCIUM 8.7 mg/dL (8.5-10.1); CARBON DIOXIDE 21.1 mmol/L (21.0-32.0); CREATININE - SERUM 2.4 mg/dL (0.6-1.3); POTASSIUM - SERUM 3.4 mmol/L (3.5-5.1); PROTEIN - SERUM 5.9 g/dL (6.4-8.2)
[2019-11-28 16:33] LABS: BASOPHILS 0.2 % (0-2); EOSINOPHILS 1.1 % (0-7); HEMATOCRIT 33.5 % (36.0-48.0); IMMATURE GRANULOCYTES 0.2 % (0-5); LYMPHOCYTES 8.9 % (15-50); MCH 30.2 pg (26.0-34.0); MCHC 32.8 g/dL (31.0-37.0); MEAN PLATELET VOLUME 10.2 fL (7.4-10.4); MONOCYTES 5.6 % (2-11); PLATELET COUNT 217 10x3/uL (130-400); RBC 3.64 10x6/uL (4.00-5.40); RDW 13.4 % (11.5-14.5); WBC 10.2 10x3/uL (4.8-10.8)
[2019-11-28 20:00] VITALS: BP 185/119
[2019-11-29] VITALS (14 sets, daily range): BP systolic 90–163; BP diastolic 66–120; Ht 157.5 cm; Wt 66.1 kg
--- NOTE | 2019-11-29 03:30 | NUR ---
PT ARRIVED TO FLOOR VIA BED, ACCOMPANIED BY STAFF. NO SIGNS OF DISTRESS. PT IS NONVERBAL. NEW PIV STARTED IN LEFT FOREARM. PT TOLERATED WELL. MICAELA ALARM ON.
--- NOTE | 2019-11-29 04:25 | NUR ---
CARDIZEM DTT STARTED AT 10ML/HR. PT IS ON TELEMETRY. NO SIGNS OF DISTRESS NOTED AT THIS TIME. PT IS STILL NONVERBAL, AND DOES NOT MAKE EYE CONTACT. CL IN REACH, BED IN LOWEST POSITION. MICAELA ALARM ON.
[2019-11-29 07:04] LABS: BASOPHILS 0.2 % (0-2); EOSINOPHILS 0.2 % (0-7); HEMATOCRIT 37.7 % (36.0-48.0); HEMOGLOBIN 12.6 g/dL (12-16); IMMATURE GRANULOCYTES 0.2 % (0-5); LYMPHOCYTES 6.1 % (15-50); MCH 30.7 pg (26.0-34.0); MCHC 33.4 g/dL (31.0-37.0); MCV 91.7 fL (80.0-100.0); MEAN PLATELET VOLUME 10.1 fL (7.4-10.4); MONOCYTES 4.6 % (2-11); NEUTROPHILS 88.7 % (40-80); PLATELET COUNT 255 10x3/uL (130-400); RBC 4.11 10x6/uL (4.00-5.40); RDW 13.7 % (11.5-14.5); WBC 11.6 10x3/uL (4.8-10.8)
--- NOTE | 2019-11-29 07:20 | NUR ---
RECIEVE REPORT. NONRESPONSIVE. UNABLE TO FOLLOW COMMANDS. UNCONTROLLED AFIB 118 ON TELEMETRY. CONSENTS FOR LUMBAR PUNCTURE SIGNED ON CHART BY POA. CONTINUE PLAN OF CARE AND SAFETY PRECAUTIONS.
[2019-11-29 07:26] LABS: CALCIUM 8.6 mg/dL (8.5-10.1); CARBON DIOXIDE 19.3 mmol/L (21.0-32.0); CREATININE - SERUM 2.5 mg/dL (0.6-1.3); POTASSIUM - SERUM 3.3 mmol/L (3.5-5.1)
[2019-11-29 07:42] LABS: APTT 29.9 SECONDS (22.8-39.4); INR 1.19 (0.85-1.17); PROTIME 15.1 SECONDS (11.6-15.0)
[2019-11-29 10:40] LABS: CKMB 3.3 U/L (0.0-3.6)
[2019-11-29 10:42] LABS: TROPONIN-I 0.147 ng/mL (0.000-0.060)
--- NOTE | 2019-11-29 10:57 | MORECARE ---
CASE MANAGEMENT DISCHARGE SUMMARY PATIENT: MARY MABRY UNIT: [id number] ADM DATE: 11/28/19 AGE: 79 : 38 SEX: F ROOM/BED: D.2130 AUTHOR: ANH LEE PHYSICIAN: REFERRING PHYSICIAN: MEET ELAM MD DATE OF SERVICE: 11/29/19 Discharge Plan Patient Name: [facility]ARY [facility]ABRY [facility] [facility] 1940 Planned Disposition: [facility] Anticipated Discharge Date: Discharge Date: Expected LOS: Initial Reviewer: [id number] Initial Review Date: 11/29/2019 Generated: 11/29/19 11:57 am Patient Name: MARY MABRY Page [id number] at 1057 All edits/amendments must be made on the electronic document DICTATION DATE: 11/29/19 105 DIRECTOR CARDIOVASCULAR: RAUL 11/29/19 1057 RPT#: [id number] DC DATE: STATUS: ADM IN [facility] [address] [place] [address] END OF REPORT
--- NOTE | 2019-11-29 11:06 | MORECARE ---
CASE MANAGEMENT DISCHARGE SUMMARY PATIENT: MARY MABRY UNIT: [id number] ADM DATE: 11/28/19 AGE: 79 : 38 SEX: F ROOM/BED: D.2130 AUTHOR: ANH LEE PHYSICIAN: REFERRING PHYSICIAN: MEET ELAM MD DATE OF SERVICE: 11/29/19 Discharge Plan Patient Name: MARY MABRY [facility] [facility] 1940 Planned Disposition: Fpc Facility Anticipated Discharge Date: Discharge Date: Expected LOS: Initial Reviewer: [email or web address] Initial Review Date: 11/29/2019 Generated: 11/29/19 12:05 pm DCPIA - Discharge Planning Initial Assessment Updated by [email or web address]: Nishant Cartre on 11/29/19 10:59 am * Is the patient Alert and Oriented? No * How many steps to enter\exit or inside your home? RAMP * PCP DR ORTEGA * [facility] * Preadmission Environment Acute Inpatient Rehab * Facility Name [facility] * ADLs Partial Dependent * Partial ADLs (Assistance needed) Ambulation Bathing Dressing Medication Management Toileting Transfers * Equipment Walker * Other Equipment NO MEDICAL EQUIPMENT PROVIDER PREFERENCE * List name and contact numbers for known caregivers / representatives who currently or will assist patient after discharge: APOLINAR SIFUENTES DTR, * Verbal permission to speak to the caregivers and representatives has been obtained from the patient. N/A * Community resources currently utilized None * Please name any agencies selected above. NONE * Additional services required to return to the preadmission environment? Yes * Can the patient safely return to the preadmission environment? No * Has this patient been hospitalized within the prior 30 days at any hospital? Yes Last DP export: 11/29/19 9:57 a Patient Name: MARY MABRY Page [phone] at 1106 All edits/amendments must be made on the electronic document DICTATION DATE: 11/29/19 1105 CHANGE NUMBER OPERATOR: RAUL 11/29/19 1105 RPT#: [id number] DC DATE: STATUS: ADM IN [facility] [address] [place] [address] END OF REPORT
--- NOTE | 2019-11-29 11:13 | MORECARE ---
CASE MANAGEMENT DISCHARGE SUMMARY PATIENT: MARY MABRY UNIT: [id number] ADM DATE: 11/28/19 AGE: 79 : 38 SEX: F ROOM/BED: D.2130 AUTHOR: JESUS,DOC PHYSICIAN: REFERRING PHYSICIAN: MEET ELAM MD DATE OF SERVICE: 11/29/19 Discharge Plan Patient Name: MARY MABRY Facility: [facility]:[place] : 1940 Planned Disposition: Fdc Facility Anticipated Discharge Date: Discharge Date: Expected LOS: Initial Reviewer: [email or web address] Initial Review Date: 11/29/2019 Generated: 11/29/19 12:12 pm Comments DCP- Discharge Planning Updated by [id number]: Nishant Carter on 11/29/19 10:[address] Patient Name: MARY MABRY Admission Status: Elective Accout number: [id number] Admission Date: 11-28-2019 : 1940 Admission Diagnosis: Attending: PHILIP ELAM Current LOS: 1 Anticipated DC Date: Planned Disposition: Fdc Facility Primary Insurance: MEDICARE A & B PLANNED EXTERNAL PROVIDER: TO BE DETERMINED Discharge Planning Comments: CM RECEIVED REQUEST TO MEET WITH PT'S DAUGHTER AND SON IN LAW IN ROOM. CM MET WITH APOLINAR SIFUENTES AND HER SPOUSE IN PT'S ROOM. PT WAS BREATING, EYES OPEN AND STARING AT CEILING. PT'S DAUGHTER REPORTS PT WAS IN INPATIENT REHAB AND BECAME UNRESPONSIVE AND THEY DON'T KNOW WHY. THEY ASKED TO SEE THE CM BECAUSE NOTHING SEEMS TO BE GOING ON AND THEY WANT TO KNOW WHAT HAS HAPPENED TO PT. CM REVIEWED CHART, INFORMED FAMILY THAT THERE WAS NOTHING THAT CM COULD TELL THEM MEDICALLY IT APPEARS THAT THE MEDICAL TEAM IS STILL IN THE PROCESS OF TESTING AND DIAGNOSIS. CM DISCUSSED DISCHARGE PLANNING; FAMILY DOES NOT FEEL THAT PT WILL BE ABLE TO RETURN TO INPATIENT REHAB AND ASKED WHAT OTHER OPTIONS THERE WERE. CM DISCUSSED NEED FOR MEDICAL TEAM TO EVALUATE AND TREAT THE PATIENT TO DETERMINE WHAT LEVEL OF FUNCTIONING MAY RETURN TO BETTER DETERMINE WHAT LEVEL OF CARE PT WILL NEED AT DISCHARGE. CM DISCUSSED [facility]FW[facility] FACILITY REHAB, SENIOR LIVING MAINTENANCE SUPERVISOR 2ND SHIFT CARE AND HOSPICE. FAMILY WOULD LIKE TO SPEAK TO SOMEONE TO UPDATE THEM ON TESTING AND MEDICAL CONDITION. CM NOTIFED NURSE AND JORGE TOBIAS. CM TO FOLLOW AND ASSIST WITH DISCHARGE PLANNING. Baseball Coach: Nishant Carter DCPIA - Discharge Planning Initial Assessment Updated by [id number]: Nishant Carter on 11/29/19 10:59 am * Is the patient Alert and Oriented? No * How many steps to enter\exit or inside your home? RAMP * PCP DR ORTEGA * [facility] * Preadmission Environment Acute Inpatient Rehab * Facility Name [facility] * ADLs Partial Dependent * Partial ADLs (Assistance needed) Ambulation Bathing Dressing Medication Management Toileting Transfers * Equipment Walker * Other Equipment NO MEDICAL EQUIPMENT PROVIDER PREFERENCE * List name and contact numbers for known caregivers / representatives who currently or will assist patient after discharge: APOLINAR SIFUENTES, DTR, * Verbal permission to speak to the caregivers and representatives has been obtained from the patient. N/A * Community resources currently utilized None * Please name any agencies selected above. NONE * Additional services required to return to the preadmission environment? Yes * Can the patient safely return to the preadmission environment? No * Has this patient been hospitalized within the prior 30 days at any hospital? Yes Last DP export: 11/29/19 10:06 a Patient Name: MARY MABRY Page [phone] at 1113 All edits/amendments must be made on the electronic document DICTATION DATE: 11/29/191111 LEGAL FINANCIAL SPECIALIST: RAUL 11/29/191111 RPT#: [id number] IN DATE: STATUS: ADM IN [facility] [address] [place] [address] END OF REPORT
--- NOTE | 2019-11-29 12:50 | NUR ---
GONE TO LUMBAR PUCTURE PROCEDURE. CALL LAB TO CHANGE ANTIBIOTIC TIMES. TIMES NOT CHANGED. WILL ADMINISTER ANTIBIOTICS AFTER ARRIVAL TO FLOOR.
--- NOTE | 2019-11-29 12:57 | NUR ---
TIME OUT PERFORMED AT 1238 BY DIONNE LEARY RT(R) WITH DR ROA AND ANETHESIA STAFF PRESENT. LUMBAR PUNCTURE WAS PERFORMED.
--- NOTE | 2019-11-29 13:33 | NUR ---
TRANSFER TO 2302 POST LUMBAR PUCTURE. REPORT CALLED TO GABBY ADAMSON.
[2019-11-29 13:39] LABS: APPEARANCE - CSF COLORLESS
[2019-11-29 13:40] LABS: RBC - CSF 1 cmm (0-0)
[2019-11-29 14:04] LABS: GLUCOSE - CSF 102 MG/DL (40-75); PROTEIN - CSF 29 MG/DL (12-60)
--- NOTE | 2019-11-29 14:53 | NUR ---
1336 REPORT RECIEVED FROM THE FLOOR NURSE PATIENT IS DELEVERED TO ROOM FROM IR... PT IS SUPINE WITH HEAD ELEVATED 30 DEGREES AND EYES ARE OPEN AND MOUTH BREATHING.. DOES NOT RESPOND TO VERBAL STIMULI ONLY NOXIOUS STIM.. WHITE CATH IN PLACE.. PT HAS BEEN IN IR FOR LUMBAR PUNCTURE TO R/O MENENGITIS... DROPLETT ISO .. 1400 DR PORTER IS AT THE BEDSIDE SEEING PT.. DAUGHTER AT BEDSIDE ANSWERING DR GARCIA.. [address] TO THE CT SCAN PER ORDER DR PORTER.. 1530RETURNED FROM CT REMAINS UNCHANGED ... IV MEDS HUNG..
--- NOTE | 2019-11-29 16:33 | NUR ---
1600 DAUGHTER APOLINAR AT BOBTAINED FROM WHITE AND FLU SWAB DONE PER ORDER AND TAKEN TO LAB EDSIDE.. PT IS WITHOUT CHANGES.. 1615 URINE CULTURE
[2019-11-29 17:13] LABS: NITRITE NEGATIVE (NEGATIVE); SPECIFIC GRAVITY 1.015 (1.005-1.020)
[2019-11-29 17:14] LABS: BILIRUBIN NEGATIVE (NEGATIVE); GLUCOSE 100 mg/dL (NEGATIVE); KETONE NEGATIVE (NEGATIVE); UROBILINOGEN NORMAL (NORMAL)
[2019-11-29 17:15] LABS: RED CELLS - URINE 0-5 /hpf (0-5); WHITE CELLS - URINE 0-5 /hpf (NEGATIVE)
[2019-11-29 17:19] LABS: BACTERIA FEW /hpf (NEGATIVE); EPITHELIAL CELLS OCC /hpf (0-5)
--- NOTE | 2019-11-29 17:25 | NUR ---
1700 VASOTEC HELD AT THIS TIME BP IS 110/50 AND PATIENT IS ON A CARDIZEM DRIP..FOR A FIB WHICH HAS CONVERTED TO SR.. 1715 DAUGHTER GONE FROM THE BEDSIDE..
--- NOTE | 2019-11-29 17:27 | NUR ---
1725 DR WATERMAN CALLED AND UPDATE RECIEVED ON CSF BEING CLEAR WITH NO PROBLEMS.. AN EEG IS ORDERED BY HIM AT THIS TIME FOR THE AM.. UPDATE ON LAB RESULTS GIVEN TO THE DR..
--- NOTE | 2019-11-29 18:25 | NUR ---
1800 PIV RIGHT FOREARM INFILTRATED.. SITE DCd AND FLUID CHANGED TO LEFT AND RUNNING WITH CARDIZEM.. COMPLETE CHG BATH GIVEN AND LINEN CHANGE DONE.. DR WATERMAN IN AT THIS TIME AND CLEARED PT FROM MENEBGITIS STATING CSF IS CLEAR... EEG ORDERED FOR AM PT REMAINS WITHOUT CHANGES IN NEURO STATUS.. NOTED A SKIN TEAR AFTER BATH ON THE RIGHT FOREARM... SITE DRESSED WITH TEGADERM CLEAR DRESSING
--- NOTE | 2019-11-29 18:33 | NUR ---
1829 DAUGHTER CALLED AND UPDATE GIVEN RE CSF BEING NEGATIVE AND CT SCANS WNL.. DAUGHTER STATED SHE WOULD BE HERE IN THE AM..
--- NOTE | 2019-11-29 19:00 | NUR ---
REPORT RECEIVED. PT AWAKE, RESPONDS ONLY TO PAINFUL STIMULI WITH FLEXION AND EXTENSION. ASSESSMENT DONE, SEE FLOWSHEET. PIV IN LEFT FOREARM, SEE IV FLOWSHEET. WILL CONTINUE TO MONITOR.
--- NOTE | 2019-11-29 21:00 | NUR ---
PT UNABLE TO FOLLOW COMMANDS, RESPONDS WITH EXTREMITY MOVEMENT TO PAINFUL STIMULI ONLY. WILL CONTINUE TO MONITOR.
--- NOTE | 2019-11-29 23:00 | NUR ---
DR SO PAGED REGARDING HEARTRATE, NEW ORDERS RECEIVED.
[2019-11-30] VITALS (24 sets, daily range): BP systolic 89–124; BP diastolic 44–94
[2019-11-30 04:38] LABS: BASOPHILS 0.1 % (0-2); EOSINOPHILS 0.3 % (0-7); HEMATOCRIT 35.2 % (36.0-48.0); HEMOGLOBIN 11.6 g/dL (12-16); IMMATURE GRANULOCYTES 0.2 % (0-5); LYMPHOCYTES 9.5 % (15-50); MCH 30.4 pg (26.0-34.0); MCV 92.1 fL (80.0-100.0); MEAN PLATELET VOLUME 9.9 fL (7.4-10.4); MONOCYTES 5.3 % (2-11); NEUTROPHILS 84.6 % (40-80); PLATELET COUNT 266 10x3/uL (130-400); RBC 3.82 10x6/uL (4.00-5.40); RDW 13.8 % (11.5-14.5); WBC 10.5 10x3/uL (4.8-10.8)
[2019-11-30 05:03] LABS: ALBUMIN 1.6 g/dL (3.4-5.0); ANION GAP 15.7 mmol/L (8-16); BILIRUBIN - TOTAL 0.19 mg/dL (0.2-1.3); CALCIUM 8.4 mg/dL (8.5-10.1); CARBON DIOXIDE 23.1 mmol/L (21.0-32.0); CREATININE - SERUM 2.9 mg/dL (0.6-1.3); VANCOMYCIN - RANDOM 8.5 ug/mL (10.0-20.0)
[2019-11-30 05:04] LABS: POTASSIUM - SERUM 2.8 mmol/L (3.5-5.1)
--- NOTE | 2019-11-30 06:00 | NUR ---
0100 - NO CHANGE IN PREVIOUS STATUS. 0300 - PT GURGLING VERY THICK WYATT SECRETIONS IN BACK OF THROAT, SUCTIONED OUT NEEDED. 0500 - NO CHANGE IN PREVIOUS STATUS.
--- NOTE | 2019-11-30 07:10 | NUR ---
REPORT RECIEVED, SHIFT ASSESSMENT COMPLETE, PT IS UNRESPONSIVE AT THIS TIME, ON 2L NC WITH 97% O2 SAT. ALL PPP, VSS, WILL CON'T TO MONITOR
--- NOTE | 2019-11-30 09:00 | NUR ---
AM MEDS GIVEN, VISITOR AT BEDSIDE, UPDATE GIVEN
--- NOTE | 2019-11-30 09:15 | NUR ---
Nutrition follow-up: Pt now in ICU s/p lumbar puncture Unresponsive NPO Labs reviewed Wt: 110# RDN following.
--- NOTE | 2019-11-30 11:05 | NUR ---
REASSESSMENT COMPLETE, NO CHANGES NOTED, PT RESTING AT THIS TIME, WILL CON'T TO MONITOR
--- NOTE | 2019-11-30 13:00 | NUR ---
REPOSITIONED FOR COMFORT, ORAL CARE PROVIDED, WILL CON'T TO MONITOR
--- NOTE | 2019-11-30 15:25 | NUR ---
REASSESSMENT COMPLETE, NO CHANGES NOTED, WILL CON'T TO MONITOR
--- NOTE | 2019-11-30 17:20 | NUR ---
REPORT CALLED TO BELINDA
--- NOTE | 2019-11-30 20:00 | NUR ---
STEP SON SHAINA AND DAUGHTER APOLINAR AT BEDSIDE, QUESTIONS ANSWERED, DAUGHTER CURIOUS ABOUT EEG RESULTS AND WOULD LIKE TO DISCUSS RESULTS WITH PHYSICIAN TO DETERMINE FURTHER CARE OPTIONS FOR MOTHER, CONFIRMED WITH DAUGHTER APOLINAR PT IS "DO NOT INTUBATE", PT UNRESPOSIVE TO VERBAL STEMULI, DOES RESPOND TO PRESSURE ON FINGER WITH MINIMAL RESPONS, VSS, RONCHI LUNG SOUNDS NOTED, REPOSITION OF PT HOB IMPROVES LS, WILL CONTINUE TO MONITOR
--- NOTE | 2019-11-30 22:39 | NUR ---
PAGED R/T PT AFIB RVR @ RATE 140-150'S ON CM,
--- NOTE | 2019-11-30 22:54 | NUR ---
SECOND CALL TO CARDIOLOGY ANSWERING SERVICE R/T PT IN AFIB RVR, CURRENT V/S; B/P 90/60(70) HR 141bpm, SPO2 98%
--- NOTE | 2019-11-30 23:01 | NUR ---
CARDIOLOGY ON-CALL PAGER NUMBER CALLED
--- NOTE | 2019-11-30 23:05 | NUR ---
CALLED BACK R/T PAGE, UPDATE GIVEN INCLUDING V/S AND Hx, ORDERS RECEIVED TO GIVE 20mg CARDIIZEM PER PIV ONCE, NO FURTHER AT THIS TIME WILL CONTINUE TO ASSESS
[2019-12-01] VITALS (29 sets, daily range): BP systolic 86–184; BP diastolic 46–94
[2019-12-01 05:00] LABS: HEMOGLOBIN 10.3 g/dL (12-16); MCH 29.6 pg (26.0-34.0); MCHC 32.2 g/dL (31.0-37.0); MEAN PLATELET VOLUME 10.7 fL (7.4-10.4); RBC 3.48 10x6/uL (4.00-5.40); RDW 13.9 % (11.5-14.5)
[2019-12-01 05:08] LABS: PLATELET COUNT 204 10x3/uL (130-400)
[2019-12-01 05:27] LABS: ALBUMIN 1.3 g/dL (3.4-5.0); ANION GAP 16.2 mmol/L (8-16); BILIRUBIN - TOTAL 0.14 mg/dL (0.2-1.3); CARBON DIOXIDE 21.2 mmol/L (21.0-32.0); CREATININE - SERUM 3.3 mg/dL (0.6-1.3); PROTEIN - SERUM 5.4 g/dL (6.4-8.2); VANCOMYCIN - RANDOM 18.3 ug/mL (10.0-20.0)
[2019-12-01 05:29] LABS: POTASSIUM - SERUM 3.4 mmol/L (3.5-5.1)
--- NOTE | 2019-12-01 05:30 | NUR ---
DAUGHTER AT BEDSIDE, UPDATE GIVEN, DAUGHTER DENIES FURTHER NEEDS AT THIS TIME, WILL CONTINUE TO ASSESS
[2019-12-01 05:32] LABS: MAGNESIUM - SERUM 1.6 mg/dL (1.8-2.4); PHOSPHOROUS 4.3 mg/dL (2.5-4.9)
[2019-12-01 05:41] LABS: LYMPHOCYTES 7 % (15-50); MONOCYTES 1 % (2-11); NEUTROPHILS 92 % (40-80); PLATELET ESTIMATE NORMAL
--- NOTE | 2019-12-01 07:00 | NUR ---
RECEIVED BEDSIDE REPORT ON PATIENT AND ASSUMED CARE. PATIENT IN BED, EYES CLOSED, GRIMACES AND WITHDRAWS FROM PAINFUL STIMULI. IV 20 GA TO LEFT FA NSL, IV 20 GA TO LEFT WRIST INFUSING W/O S/S OF INFILTRATION. D5W AT 125 ML/HR, AMIODARONE AT 0.5 MG/HR (16.7 ML/HR) AND MAGNESIUM AT 100 ML/HR. BBS - RHONCI, SPO2 - 98% ON 2 LPM VIA NC. WHITE CATH IN PLACE WITH YELLOW UOP NOTED. CM - HR 92 NSR. HEAD TO TOE ASSESSMENT COMPLETED.
--- NOTE | 2019-12-01 09:17 | NUR ---
PATIENT TURNED AND REPOSITIONED IN BED.
--- NOTE | 2019-12-01 19:00 | NUR ---
REPORT RECEIVED AT BEDSIDE, SHIFT ASSESSMENT COMPLETED PER FLOW SHEET, PT RESTING IN BED WITH EYES CLOSED, GRIMACES AND WITHDRAWS FROM PAINFUL STIMULI, OLI BS NOTED, REPOSITIONED PT FOR COMFORT, HOB ELEVATED 45 DEGREES, ORAL CARE AND SUCTIONING COMPLETED, BS IMPROVED SLIGHTLY, VSS, NSR ON CM, LEFT FA 20g PIV S/L DRSG C/D/I, LEFT HAND 20g PIV PATENT INFUSING MEDS PER MAR/ORDERS WHITE CATH TO GRAVITY SECURED TO RIGHT UPPER THIGH CLEAR YELLOW URINE NOTED, WARREN IZQUIERDO AND SCD'S ON BLE, BED ALARM ON, CALL LIGHT IN REACH, WILL CONTINUE TO MONITOR
--- NOTE | 2019-12-01 19:48 | NUR ---
DAUGHTER AT BEDSIDE, UPDATE GIVEN, DENIES FURTHER NEEDS AT THIS TIME
--- NOTE | 2019-12-01 23:00 | NUR ---
REASSESSMENT COMPLETE PER FLOW SHEET, NO ACUTE CHANGES NOTED FROM PRIOR ASSESSMENT, PT REPOSITIONED FOR COMFORT, ORAL CARE AND SUCTIONING COMPLETED, HOB ELEVATED, EXTREMITIES ELEVATED ON PILLOWS, ALL DRSG'S C/D/I, VSS, WILL CONTINUE TO MONITOR
[2019-12-02] VITALS (23 sets, daily range): BP systolic 100–180; BP diastolic 48–89
--- NOTE | 2019-12-02 02:00 | NUR ---
LEFT FA PIV DC'D WITH TIP INTACT D/Y LEAKING AROUNT CATH INSERTION SITE WHEN FLUSHED 20G PIV PLACED IN RIGHT FA, BLOOD RETURN NOTED AND PATENT WHEN FLUSHED WITH 10ml NS, SITE C/D/I, TEGADERM DRSG PLACED AND LINE SECURED TO FA, PT TOLLERATED PROCEDURE WELL WITH NO S/S OF ACUTE DISTRESS, VSS, REPOSITIONED IN BED FOR COMFORT AND HOB ELEVATED, WILL CONTINUE TO MONITOR
[2019-12-02 06:42] LABS: ALBUMIN 1.4 g/dL (3.4-5.0); ANION GAP 15.6 mmol/L (8-16); BILIRUBIN - TOTAL 0.22 mg/dL (0.2-1.3); CALCIUM 8.3 mg/dL (8.5-10.1); POTASSIUM - SERUM 3.6 mmol/L (3.5-5.1); PROTEIN - SERUM 5.8 g/dL (6.4-8.2); VANCOMYCIN - RANDOM 23.3 ug/mL (10.0-20.0)
[2019-12-02 06:45] LABS: MAGNESIUM - SERUM 2.3 mg/dL (1.8-2.4)
[2019-12-02 06:56] LABS: BASOPHILS 0.1 % (0-2); EOSINOPHILS 2.5 % (0-7); HEMOGLOBIN 11.2 g/dL (12-16); IMMATURE GRANULOCYTES 0.4 % (0-5); LYMPHOCYTES 12.6 % (15-50); MCH 29.9 pg (26.0-34.0); MCHC 32.9 g/dL (31.0-37.0); MCV 90.7 fL (80.0-100.0); MONOCYTES 4.7 % (2-11); NEUTROPHILS 79.7 % (40-80); PLATELET COUNT 237 10x3/uL (130-400); RBC 3.75 10x6/uL (4.00-5.40); RDW 13.6 % (11.5-14.5); WBC 9.8 10x3/uL (4.8-10.8)
--- NOTE | 2019-12-02 09:37 | NUR ---
Nutrition Follow-up: NPO x 4 days. Unresponsive. Wt: 147.7# (12/01); 146.6# (3.) Last BM: 11/26 per chart Labs noted: Na 135, Glu 133, Ca 8.3, Alb 1.4 Meds noted: Luis Almaraz - may consider nutrition support if medically indicated and/or desired; RD available for assistance. -Monitor wt. -RD following.
--- NOTE | 2019-12-02 18:54 | NUR ---
0730-RECIEVED PER FLOW SHEET-NOT ABLE TO ILLICIT RESPONSE-NOTED SNOROUS RESPIRATIONS-TRACHEAL AIRWAY CLEAR-R FORM ARM REDDENED-NOTED IV IN SITU WITH GOOD RETURN 0830-DAUGHTER AT BEDSIDE -APPEARS ANGRY REGARDING ?SITUATION?-PRESSING NURSE FOR CAUSE OF PT CONDITION-STRESSED TO DIFFER TO NUEROLOGIST-PRESSED AGAIN IF HYPOXIC ISSUE-STRESSED NUEROLOGIST WOULD STATE THAT IF EEG PRESENTED THAT A CAUSE- TOOK DAUGHTER CELL NUMBER WITH PROMISE TO HAVE ALL MD'S CONSULTED TO CALL HER IF NOT PRESENT- 1015-NOTED R ARM IV ISSUE-SPOKE WITH DAUGHTER REGARDING MIDLINE PLACEMENT BY VASCULAR ACCESS NURSE-SEEMS AGREEABLE 1040-VASCULAR NURSE AT BEDSIDE AND ASSESSED PT
--- NOTE | 2019-12-02 19:00 | NUR ---
BEDSIDE REPORT RECEIVED, CARE ASSUMED. RECEIVED PATIENT IN BED. RESPONDS TO NOXIOUS STIMULI WITH FACIAL GRIMACING AND SLIGHT BUE MOVEMENT. UNABLE TO FOLLOW SIMPLE COMMANDS. NONVERBAL. MONITORS CONNECTED TO PATIENT WITH ALARMS SET. VSS. ASSEMENT COMPLETED, SEE FLOW SHEET FOR DETAILS. TURNED AND REPOSITIONED FOR COMFORT. ORAL CARE GIVEN.
--- NOTE | 2019-12-02 21:00 | NUR ---
TURNED AND POSITIONED FOR COMFORT. VSS. NO CHANGE IN LOC
--- NOTE | 2019-12-02 23:00 | NUR ---
REASSESSMENT COMPLETED, SEE FLOW SHEET FOR DETAILS. TURNED AND REPOSTIONED.
[2019-12-03] VITALS (24 sets, daily range): BP systolic 99–164; BP diastolic 49–88
--- NOTE | 2019-12-03 00:48 | NUR ---
DR. GONZALEZ PAGED RE HRT RATE
--- NOTE | 2019-12-03 01:02 | NUR ---
SPOKE WITH DR. GONZALEZ, UPDATED ON PATIENT. NEW ORDERS RECEIVED.
--- NOTE | 2019-12-03 01:15 | NUR ---
CONVERTED TO ACCELERATED JUNCTIONAL RHYTHM 80'S. VSS. IVF INFUSING ORDERED.
--- NOTE | 2019-12-03 03:00 | NUR ---
REASSESSMENT COMPLETED PER FLOW SHEET WITH NO ACUTE DISTRESS OBSERVED. VSS. NO CHANGE IN LOC OBSERVED. TURNED AND REPOSITIONED FOR COMFORT.
[2019-12-03 04:47] LABS: BASOPHILS 0.1 % (0-2); EOSINOPHILS 2.4 % (0-7); HEMATOCRIT 29.6 % (36.0-48.0); HEMOGLOBIN 9.6 g/dL (12-16); IMMATURE GRANULOCYTES 0.3 % (0-5); MCH 29.6 pg (26.0-34.0); MCHC 32.4 g/dL (31.0-37.0); MCV 91.4 fL (80.0-100.0); MEAN PLATELET VOLUME 9.1 fL (7.4-10.4); MONOCYTES 6.8 % (2-11); NEUTROPHILS 79.4 % (40-80); RBC 3.24 10x6/uL (4.00-5.40); RDW 13.7 % (11.5-14.5); WBC 7.9 10x3/uL (4.8-10.8)
[2019-12-03 04:52] LABS: PLATELET COUNT 186 10x3/uL (130-400)
--- NOTE | 2019-12-03 05:00 | NUR ---
CHG BATH GIVEN WITH COMPLETE LINEN CHANGE. ORAL CARE GIVEN. TURNED AND POSITIONED FOR COMFORT. VSS
[2019-12-03 05:09] LABS: ALBUMIN 1.2 g/dL (3.4-5.0); ANION GAP 15.4 mmol/L (8-16); BILIRUBIN - TOTAL 0.13 mg/dL (0.2-1.3); CALCIUM 8.3 mg/dL (8.5-10.1); CARBON DIOXIDE 19.3 mmol/L (21.0-32.0); CREATININE - SERUM 2.8 mg/dL (0.6-1.3); POTASSIUM - SERUM 3.7 mmol/L (3.5-5.1); PROTEIN - SERUM 5.1 g/dL (6.4-8.2); VANCOMYCIN - RANDOM 17.5 ug/mL (10.0-20.0)
--- NOTE | 2019-12-03 10:23 | NUR ---
0800-PT DAUGHTER AT BEDSIDE-STATED AGREEABLE TO CVL PLACEMENT-CONSENT OBTAINED 0925-REPOSITIONED TO R SIDE-ORAL SUCTION REQUIRED-MARKED FACIAL GRIMACE DISPLAYED-WITH FOREHEAD FURROWING-
--- NOTE | 2019-12-03 12:15 | NUR ---
NUTRITION F/U RECEIVED CONSULT TO START TUBE FEEDS. NURSING REPORTS DOBHOFF WILL BE PLACED. WILL START OSMOLITE 1.0 MEGAN AT 20 CC/HR WITH CURRENT GOAL RATE 50 CC/HR. IF RENAL FUNCTION DECLINES, MAY REQUIRE TUBE FEED CHANGE TO RENAL FORMULA. RD FOLLOWING
--- NOTE | 2019-12-03 16:11 | NUR ---
1230-DR GARCIA AT BEDSIDE SPOKE WITH PT DAUGHTER REGARDING BENEFIT OF R IJ VS RISK-DAUGHTER AGREEABLE TO CVL PLACEMENT 1300-CVL COMPLETED --DOPHOFF PLACED L NARE-PORT CXR AND KUB DONE 1400-OSMOLYTE STARTED AT 10ML/H-R CVL CONFIRMED-IV OF CORDARONE AND D51/2NS STARTED -R PERIPHERALS X2 D/C'D-R ARM ELEVATED ON PILLOW-R FOREARM REMAINS REDDENED
--- NOTE | 2019-12-03 19:20 | NUR ---
RECIVED REPORT AT BEDSIDE. PT VSS. DAUGHTER IS AT BEDSIDE. OBSERVED WHITE CATHETOR BELOW BLADDER AND DRAINING. RIGHT CVL OBSERVED WITH FLUIDS/MEDS RUNNING. SEE DRIP/FLOW SHEET. PT IS RESTING WITH EYES CLOSED ON HER LEFT SIDE WITH HEALS BRIDGED OFF BED. RIGHT ARM IS PROPPED ON A PILLOW TO HELP DECREASE SWELLING. TUBE FEEDING IS INFUSING OSMOLITE AT 20ML/HR IN LEFT NARE DOBHUFF. PT TOLERATED WELL. WILL PERFROM FULL ASSESSMENT AND DOUCMENT IN FLOWSHEET. BED IS LOW,SIDE RAISLX2,CALL LIGHT WITHIN REACH. WILL CONTINUE TO MONITOR
--- NOTE | 2019-12-03 20:37 | NUR ---
MONITORING PT. SHE IS RESTIGN WITH EYES CLOSED. REPOSITIONED FOR COMFORT. AND ASSISTED TONGUE TO FRONT OF MOUTH DUE TO IT LEANING BACKWARDS SLIGHTLY. VSS. BED IS LOW,SIDE RAILSX2,CALL LIGHT WITHIN REACH. WILL CONTINUE TO MONITOR
--- NOTE | 2019-12-03 22:54 | NUR ---
MONITORING PT. ADMINISTERING SCHEDULED MED. DOC ON NOV. PERFORMED ORAL CARE, PT TRIED TO KEEP MOUTH CLOSED. REPOSITIONED FOR COMFORT. HEALS BRIDGED OFF BED. VSS. BED IS LOW,SIDE RAISLX2,CALL LIGHT WITHIN REACH. BED ALARM ON. WILL CONITNUE TO MONITOR
--- NOTE | 2019-12-03 22:57 | NUR ---
PERFORMING RE-ASSESSMENT AND WILL DOCUMENT IN FLOW SHEET
[2019-12-04] VITALS (24 sets, daily range): BP systolic 99–177; BP diastolic 56–89
--- NOTE | 2019-12-04 00:17 | NUR ---
CHECK BS AND IS 161. 2 UNITS OF HUMALOG WERE GIVEN IN RIGHT ARM. PT DID NOT REACT TO INJECTION. VSS. SUCTIONED MOUTH AT THIS TIME GENTLY AND PERFORMED ORAL CARE. REPOSITIONED FOR COMFORT. BED IS LOW,SIDE RAILSX2,CALL LGIHT WITHIN REACH. WILL CONTIUE TO [facility]
--- NOTE | 2019-12-04 01:54 | NUR ---
PT IS RESTING IN BED WITH EYES CLOSED. VSS. REPOSITIONED FOR COMFORT. HEELS ARE BRIDGED OFF BED. WILL CONTINUE TO MONITOR
--- NOTE | 2019-12-04 03:10 | NUR ---
PERFORMED RE-ASSESSMNET AND DOC ON FLOW SHEET. PT IS RESTING WITH EYES CLOSED. NO CHANGE IN GCS OF 9. ORAL CARE PROVIDED, PT TOLERATED WELL. VSS. BED IS LOW,SIDE RAILSX2,CALL LIGHT WIHTIN REACH. WILL CONTINUE TO MONITOR
--- NOTE | 2019-12-04 04:56 | NUR ---
PT IS RESTING WITH EYES CLOSED. VSS. REPOSITIONED AT THIS TIME FOR COMFORT. HEALS ARE BRIDGED OFF BED. CHANGED BP CUFF TO LEFT LEG. WARREN HOSE IS ON BILAT LEGS. SCD IS NOW ON RIGHT LEG. PROVIDED ORAL CARE AND LIGHT ORAL SUCTION. PT TOLERATED WELL. BED IS LOW,SIDE RAILSX2,CALL LIGHT WITHIN REACH.WILL CONTINUE TO MONTIOR
[2019-12-04 08:28] LABS: BILIRUBIN - TOTAL 0.11 mg/dL (0.2-1.3); CALCIUM 7.8 mg/dL (8.5-10.1); CARBON DIOXIDE 18.6 mmol/L (21.0-32.0); CREATININE - SERUM 2.7 mg/dL (0.6-1.3); MAGNESIUM - SERUM 1.8 mg/dL (1.8-2.4); PHOSPHOROUS 4.3 mg/dL (2.5-4.9); POTASSIUM - SERUM 3.6 mmol/L (3.5-5.1); PROTEIN - SERUM 4.7 g/dL (6.4-8.2)
[2019-12-04 08:36] LABS: BASOPHILS 0.3 % (0-2); EOSINOPHILS 3.2 % (0-7); HEMATOCRIT 28.1 % (36.0-48.0); IMMATURE GRANULOCYTES 0.3 % (0-5); LYMPHOCYTES 16.4 % (15-50); MCH 29.5 pg (26.0-34.0); MCV 92.1 fL (80.0-100.0); MEAN PLATELET VOLUME 9.5 fL (7.4-10.4); MONOCYTES 8.6 % (2-11); NEUTROPHILS 71.2 % (40-80); PLATELET COUNT 193 10x3/uL (130-400); RBC 3.05 10x6/uL (4.00-5.40); RDW 13.7 % (11.5-14.5); WBC 7.3 10x3/uL (4.8-10.8)
--- NOTE | 2019-12-04 09:08 | NUR ---
0800-RECIEVED PER FLOW SHEET-DOES NOT CLEAR AIRWAY-ORAL TRACHEAL SUCTIONED
--- NOTE | 2019-12-04 16:10 | MORECARE ---
CASE MANAGEMENT DISCHARGE SUMMARY PATIENT: MARY MABRY UNIT: [id number] ADM DATE: 11/28/19 AGE: 79 : 38 SEX: F ROOM/BED: [facility] AUTHOR: JESUS,DOC PHYSICIAN: REFERRING PHYSICIAN: MEET ELAM MD DATE OF SERVICE: 12/04/19 Discharge Plan Patient Name: MARY MABRY Facility: [facility]:[place] : 1940 Planned Disposition: Halfway Facility Anticipated Discharge Date: Discharge Date: Expected LOS: Initial Reviewer: [email or web address] Initial Review Date: 11/29/2019 Generated: 12/04/19 5:09 pm Comments DCP- Discharge Planning Updated by [email or web address]: Shannon Singleton on 12/04/19 3:[address] CM received an order for Hospice. CM spoke with nursing and at this time family is waiting on some results and to speak with Dr. Nishant rivers before going forward with hospice. CM will continue to follow and assist as needed with discharge planning / needs. DCP- Discharge Planning Updated by [id number]: Nishant Carter on 11/29/19 10:[address] Patient Name: MARY MABRY Admission Status: Elective Accout number: [id number] Admission Date: 11-28-2019 : 1940 Admission Diagnosis: Attending: PHILIP ELAM Current LOS: 1 Anticipated DC Date: Planned Disposition: Halfway Facility Primary Insurance: MEDICARE A & B PLANNED EXTERNAL PROVIDER: TO BE DETERMINED Discharge Planning Comments: CM RECEIVED REQUEST TO MEET WITH PT'S DAUGHTER AND SON IN LAW IN ROOM. CM MET WITH APOLINAR SIFUENTES AND HER SPOUSE IN PT'S ROOM. PT WAS BREATING, EYES OPEN AND STARING AT CEILING. PT'S DAUGHTER REPORTS PT WAS IN INPATIENT REHAB AND BECAME UNRESPONSIVE AND THEY DON'T KNOW WHY. THEY ASKED TO SEE THE CM BECAUSE NOTHING SEEMS TO BE GOING ON AND THEY WANT TO KNOW WHAT HAS HAPPENED TO PT. CM REVIEWED CHART, INFORMED FAMILY THAT THERE WAS NOTHING THAT CM COULD TELL THEM MEDICALLY IT APPEARS THAT THE MEDICAL TEAM IS STILL IN THE PROCESS OF TESTING AND DIAGNOSIS. CM DISCUSSED DISCHARGE PLANNING; FAMILY DOES NOT FEEL THAT PT WILL BE ABLE TO RETURN TO INPATIENT REHAB AND ASKED WHAT OTHER OPTIONS THERE WERE. CM DISCUSSED NEED FOR MEDICAL TEAM TO EVALUATE AND TREAT THE PATIENT TO DETERMINE WHAT LEVEL OF FUNCTIONING MAY RETURN TO BETTER DETERMINE WHAT LEVEL OF CARE PT WILL NEED AT DISCHARGE. CM DISCUSSED LONG-TERM FACILITY REHAB, [facility]. FAMILY WOULD LIKE TO SPEAK TO SOMEONE TO UPDATE THEM ON TESTING AND MEDICAL CONDITION. CM NOTIFED NURSE AND JORGE TOBIAS. CM TO FOLLOW AND ASSIST WITH DISCHARGE PLANNING. Airplane Engineer: Nishant Carter DCPIA - Discharge Planning Initial Assessment Updated by [id number]: Nishant Carter on 11/29/19 10:59 am * Is the patient Alert and Oriented? No * How many steps to enter\exit or inside your home? RAMP * PCP DR ORTEGA * [facility] * Preadmission Environment Acute Inpatient Rehab * Facility Name [facility] * ADLs Partial Dependent * Partial ADLs (Assistance needed) Ambulation Bathing Dressing Medication Management Toileting Transfers * Equipment Walker * Other Equipment NO MEDICAL EQUIPMENT PROVIDER PREFERENCE * List name and contact numbers for known caregivers / representatives who currently or will assist patient after discharge: APOLINAR SIFUENTES, DTR, * Verbal permission to speak to the caregivers and representatives has been obtained from the patient. N/A * Community resources currently utilized None * Please name any agencies selected above. NONE * Additional services required to return to the preadmission environment? Yes * Can the patient safely return to the preadmission environment? No * Has this patient been hospitalized within the prior 30 days at any hospital? Yes Last DP export: 11/29/19 10:13 a Patient Name: MARY MABRY Page [id number] at 1610 All edits/amendments must be made on the electronic document DICTATION DATE: 12/04/19 160 RESEARCH WORKER ENCYCLOPEDIA: RAUL 12/04/19 160 RPT#: [id number] DC DATE: STATUS: ADM IN [facility] [address] [place] [address] END OF REPORT
--- NOTE | 2019-12-04 19:00 | NUR ---
BEDSIDE REPORT AND SHIFT ASSESSMENT COMPLETE, SEE FLOWSHEET. PT RESPONDS TO DEEP STIMULI, WILL NOT FOLLOW COMMANDS. NSR ON MONITOR. T 99.7. OTHER VSS. R SUBCLAVIAN CVL PATENT, SEE IV FLOWSHEET. Maryan SOSA, SECURED. CHRISTOPHER WITH STEVEN CLEAR UOP. BED ALARM ON, WILL MONITOR.
--- NOTE | 2019-12-04 21:00 | NUR ---
ORAL SUCTIONING PERFORMED. PT BIT DOWN ON SUCTION TUBING, RESISTANCE MET. ABLE TO HOLD MOUTH OPEN AND PERFORM ORAL AND TRACHEAL SUCTIONING.
--- NOTE | 2019-12-04 23:00 | NUR ---
REASSESSMENT COMPLETE, SEE FLOWSHEET.
[2019-12-05] VITALS (22 sets, daily range): BP systolic 94–183; BP diastolic 48–91
--- NOTE | 2019-12-05 02:30 | NUR ---
RR 36. ORAL AND TRACHEAL SUCTIONING COMPLETE, RR NOW 28. REPOSITIONED FOR COMFORT. WILL MONITOR.
--- NOTE | 2019-12-05 03:00 | NUR ---
RT CALLED DUE TO PT RR IN 50'S. ORAL AND TRACHEAL SUCTIONING PERFORMED WITH NO IMPROVEMENT. PT AGONAL BREATHING, STRUGGLING TO CATCH BREATH. JOURNAL CLERK PHYSICIAL PAGED FOR UPDATE.
--- NOTE | 2019-12-05 03:10 | NUR ---
TUBE FEEDINGS TURNED OFF DUE TO RESPIRATORY STATUS.
--- NOTE | 2019-12-05 03:15 | NUR ---
STILL NO CALL BACK FROM PHYSICIAN. PAGED AT [phone]. WILL PAGE AGAIN.
--- NOTE | 2019-12-05 03:30 | NUR ---
TONGUE SWELLING AND JVD NOTED. PT REPOSITIONED TO HIGH FOWLERS POSITION WITH HEAD TILTED FORWARD TO BETTER PROMOTE RESPIRATORY FUNCTION. LESS AGONAL BREATHING NOTED, PT RR DECREASED TO 22. STILL NO RETURNED PAGE FROM .
--- NOTE | 2019-12-05 03:50 | NUR ---
[facility] PAGED AGAIN.
--- NOTE | 2019-12-05 04:00 | NUR ---
[facility] PAGED AGAIN, STATES THEY WILL TRY TO REACH KIRTI JORGE ON HER CELL PHONE.
--- NOTE | 2019-12-05 04:14 | NUR ---
[facility] PHYSICIAN ANSWERING SERVICE CALLED BACK TO SEE IF KIRTI JORGE HAS RETURNED PAGED. TOLD HER NO. SHE SAID SHE WOULD SEND A PAGE OUT TO DR LORENZO.
--- NOTE | 2019-12-05 04:50 | NUR ---
ORAL AND TRACHEAL SUCTIONING COMPLETE.
--- NOTE | 2019-12-05 05:00 | NUR ---
PT STARTING TO MOVE HEAD AND ARMS, STILL WILL NOT FOLLOW COMMANDS OR OPEN EYES.
--- NOTE | 2019-12-05 05:30 | NUR ---
SPOKE WITH FAMILY, UPDATE GIVEN. PAGE RETURNED FROM J[facility] COTTO. NEW ORDERS RECEIVED.
[2019-12-05 06:40] LABS: ALBUMIN 1.1 g/dL (3.4-5.0); BILIRUBIN - TOTAL 0.17 mg/dL (0.2-1.3); CALCIUM 7.9 mg/dL (8.5-10.1); CARBON DIOXIDE 17.8 mmol/L (21.0-32.0); CREATININE - SERUM 2.6 mg/dL (0.6-1.3); POTASSIUM - SERUM 3.8 mmol/L (3.5-5.1); PROTEIN - SERUM 5.3 g/dL (6.4-8.2); VANCOMYCIN - RANDOM 22.5 ug/mL (10.0-20.0)
[2019-12-05 07:17] LABS: BASOPHILS 0.2 % (0-2); EOSINOPHILS 1.5 % (0-7); HEMATOCRIT 31.9 % (36.0-48.0); HEMOGLOBIN 10.3 g/dL (12-16); IMMATURE GRANULOCYTES 0.6 % (0-5); LYMPHOCYTES 6.9 % (15-50); MCH 29.4 pg (26.0-34.0); MCHC 32.3 g/dL (31.0-37.0); MCV 91.1 fL (80.0-100.0); MEAN PLATELET VOLUME 9.7 fL (7.4-10.4); MONOCYTES 10.3 % (2-11); NEUTROPHILS 80.5 % (40-80); PLATELET COUNT 230 10x3/uL (130-400); RDW 13.8 % (11.5-14.5)
[2019-12-05 07:19] LABS: WBC 10.3 10x3/uL (4.8-10.8)
--- NOTE | 2019-12-05 08:34 | NUR ---
0700PT RECIEVED SITTING UP IN BED DOES NOT FOLLOW COMMANDS OR WITHDRAW TO PAIN, ORAL CARE DONE, REPOSITIONED, SEE SHIFT ASSESSMENT FOR DETAILS
--- NOTE | 2019-12-05 09:37 | NUR ---
Nutrition Follow-up: Per nursing, TF started over the weekend but held overnight 2/2 respiratory status. Noted possible hospice. Diet: Osmolite 1.0 - goal rate 50 mL/hr (on hold) Wt: 205# (12/04); 208.3# (12/01); 197.3# (11/22) Labs noted: K+ 3.8, Glu 186, Ca 7.9, Alb 1.1 Meds noted: Lasix, KCl, Humalog, Protonix -RD available for assistance with nutrition support if medically indicated and/or desired. -RD following.
--- NOTE | 2019-12-05 12:47 | NUR ---
SPOKE WITH PTS DAUGHTER GETACHEW WHO WANTS TO CONTINUE WITH HOSPICE AND MAKE TP DNR NO INTUBATION CPR OR MEDS, WITNESSED BY OLEG ARZATE RN
--- NOTE | 2019-12-05 13:23 | MORECARE ---
CASE MANAGEMENT DISCHARGE SUMMARY PATIENT: MARY MABRY UNIT: [id number] ADM DATE: 11/28/19 AGE: 79 : 38 SEX: F [facility] AUTHOR: JESUS,DOC PHYSICIAN: REFERRING PHYSICIAN: MEET ELAM MD DATE OF SERVICE: 12/05/19 Discharge Plan Patient Name: MARY MABRY Facility: [facility]:[place] : 1940 Planned Disposition: Senior Care Facility Anticipated Discharge Date: Discharge Date: Expected LOS: Initial Reviewer: [email or web address] Initial Review Date: 11/29/2019 Generated: 12/05/19 2:23 pm Comments DCP- Discharge Planning Updated by [id number]: Shannon Singleton on 12/04/19 3:[address] CM received an order for Hospice. CM spoke with nursing and at this time family is waiting on some results and to speak with Dr. Nishant rivers before going forward with hospice. CM will continue to follow and assist as needed with discharge planning / needs. DCP- Discharge Planning Updated by [id number]: Nishant Carter on 11/29/19 10:[address] Patient Name: MARY MABRY Admission Status: Elective Accout number: [id number] Admission Date: 11-28-2019 : 1940 Admission Diagnosis: Attending: PHILIP ELAM Current LOS: 1 Anticipated DC Date: Planned Disposition: Senior Care Facility Primary Insurance: MEDICARE A & B PLANNED EXTERNAL PROVIDER: TO BE DETERMINED Discharge Planning Comments: CM RECEIVED REQUEST TO MEET WITH PT'S DAUGHTER AND SON IN LAW IN ROOM. CM MET WITH APOLINAR SIFUENTES AND HER SPOUSE IN PT'S ROOM. PT WAS BREATING, EYES OPEN AND STARING AT CEILING. PT'S DAUGHTER REPORTS PT WAS IN INPATIENT REHAB AND BECAME UNRESPONSIVE AND THEY DON'T KNOW WHY. THEY ASKED TO SEE THE CM BECAUSE NOTHING SEEMS TO BE GOING ON AND THEY WANT TO KNOW WHAT HAS HAPPENED TO PT. CM REVIEWED CHART, INFORMED FAMILY THAT THERE WAS NOTHING THAT CM COULD TELL THEM MEDICALLY IT APPEARS THAT THE MEDICAL TEAM IS STILL IN THE PROCESS OF TESTING AND DIAGNOSIS. CM DISCUSSED DISCHARGE PLANNING; FAMILY DOES NOT FEEL THAT PT WILL BE ABLE TO RETURN TO INPATIENT REHAB AND ASKED WHAT OTHER OPTIONS THERE WERE. CM DISCUSSED NEED FOR MEDICAL TEAM TO EVALUATE AND TREAT THE PATIENT TO DETERMINE WHAT LEVEL OF FUNCTIONING MAY RETURN TO BETTER DETERMINE WHAT LEVEL OF CARE PT WILL NEED AT DISCHARGE. CM DISCUSSED PENITENTIARY FACILITY REHAB, ASSISTED CUSTODIAL CARE AND HOSPICE. FAMILY WOULD LIKE TO SPEAK TO SOMEONE TO UPDATE THEM ON TESTING AND MEDICAL CONDITION. CM NOTIFED NURSE AND JORGE TOBIAS. CM TO FOLLOW AND ASSIST WITH DISCHARGE PLANNING. Director Of Public Relations: Nishant Carter DCPIA - Discharge Planning Initial Assessment Updated by [email or web address]: Nishant Carter on 11/29/19 10:59 am * Is the patient Alert and Oriented? No * How many steps to enter\exit or inside your home? RAMP * PCP DR ORTEGA * Pharmacy [facility] * Preadmission Environment Acute Inpatient Rehab * Facility Name [facility] IN[facility]IENT [facility] * ADLs Partial Dependent * Partial ADLs (Assistance needed) Ambulation Bathing Dressing Medication Management Toileting Transfers * Equipment Walker * Other Equipment NO MEDICAL EQUIPMENT PROVIDER PREFERENCE * List name and contact numbers for known caregivers / representatives who currently or will assist patient after discharge: APOLINAR SIFUENTES, DTR, * Verbal permission to speak to the caregivers and representatives has been obtained from the patient. N/A * Community resources currently utilized None * Please name any agencies selected above. NONE * Additional services required to return to the preadmission environment? Yes * Can the patient safely return to the preadmission environment? No * Has this patient been hospitalized within the prior 30 days at any hospital? Yes External Providers External Provider: [facility] Next Contact Date: Service Request Date: Service Type: Resolution: Reviewer: Comments: Last DP export: 12/04/19 3:10 p Patient Name: MARY MABRY Page 48601 at 1323 All edits/amendments must be made on the electronic document DICTATION DATE: 12/05/193 COATER OPERATOR: RAUL 12/05/193 RPT#: [id number] DC DATE: STATUS: ADM IN [facility] [address] [place] [address] END OF REPORT
--- NOTE | 2019-12-05 14:39 | MORECARE ---
CASE MANAGEMENT DISCHARGE SUMMARY PATIENT: MARY MABRY UNIT: [id number] ADM DATE: 11/28/19 AGE: 79 : 38 SEX: F ROOM/BED: [facility] AUTHOR: JESUS,DOC PHYSICIAN: REFERRING PHYSICIAN: MEET ELAM MD DATE OF SERVICE: 12/05/19 Discharge Plan Patient Name: MARY MABRY Facility: [facility]:[place] : 1940 Planned Disposition: Jail Facility Anticipated Discharge Date: Discharge Date: Expected LOS: Initial Reviewer: [email or web address] Initial Review Date: 11/29/2019 Generated: 12/05/19 3:38 pm Comments DCP- Discharge Planning Updated by [email or web address]: Shannon Singleton on 12/04/19 3:[address] CM received an order for Hospice. CM spoke with nursing and at this time family is waiting on some results and to speak with Dr. Nishant rivers before going forward with hospice. CM will continue to follow and assist as needed with discharge planning / needs. DCP- Discharge Planning Updated by [email or web address]: Nishant Carter on 11/29/19 10:[address] Patient Name: MARY MABRY Admission Status: Elective Accout number: [id number] Admission Date: 11-28-2019 : 1940 Admission Diagnosis: Attending: PHILIP ELAM Current LOS: 1 Anticipated DC Date: Planned Disposition: Jail Facility Primary Insurance: MEDICARE A & B PLANNED EXTERNAL PROVIDER: TO BE DETERMINED Discharge Planning Comments: CM RECEIVED REQUEST TO MEET WITH PT'S DAUGHTER AND SON IN LAW IN ROOM. CM MET WITH APOLINAR SIFUENTES AND HER SPOUSE IN PT'S ROOM. PT WAS BREATING, EYES OPEN AND STARING AT CEILING. PT'S DAUGHTER REPORTS PT WAS IN INPATIENT REHAB AND BECAME UNRESPONSIVE AND THEY DON'T KNOW WHY. THEY ASKED TO SEE THE CM BECAUSE NOTHING SEEMS TO BE GOING ON AND THEY WANT TO KNOW WHAT HAS HAPPENED TO PT. CM REVIEWED CHART, INFORMED FAMILY THAT THERE WAS NOTHING THAT CM COULD TELL THEM MEDICALLY IT APPEARS THAT THE MEDICAL TEAM IS STILL IN THE PROCESS OF TESTING AND DIAGNOSIS. CM DISCUSSED DISCHARGE PLANNING; FAMILY DOES NOT FEEL THAT PT WILL BE ABLE TO RETURN TO INPATIENT REHAB AND ASKED WHAT OTHER OPTIONS THERE WERE. CM DISCUSSED NEED FOR MEDICAL TEAM TO EVALUATE AND TREAT THE PATIENT TO DETERMINE WHAT LEVEL OF FUNCTIONING MAY RETURN TO BETTER DETERMINE WHAT LEVEL OF CARE PT WILL NEED AT DISCHARGE. CM DISCUSSED S[facility]IOR LIVING FACILITY REHAB, [facility] PRISON CARE AND HOSPICE. FAMILY WOULD LIKE TO SPEAK TO SOMEONE TO UPDATE THEM ON TESTING AND MEDICAL CONDITION. CM NOTIFED NURSE AND JORGE TOBIAS. CM TO FOLLOW AND ASSIST WITH DISCHARGE PLANNING. Chemical Lab Technician: Nishant Carter DCPIA - Discharge Planning Initial Assessment Updated by [email or web address]: Nishant Carter on 11/29/19 10:59 am * Is the patient Alert and Oriented? No * How many steps to enter\exit or inside your home? RAMP * PCP DR ORTEGA * [facility]acy [facility] * Preadmission Environment Acute Inpatient Rehab * Facility Name [facility] * ADLs Partial Dependent * Partial ADLs (Assistance needed) Ambulation Bathing Dressing Medication Management Toileting Transfers * Equipment Walker * Other Equipment NO MEDICAL EQUIPMENT PROVIDER PREFERENCE * List name and contact numbers for known caregivers / representatives who currently or will assist patient after discharge: APOLINAR SIFUENTES, DTR, * Verbal permission to speak to the caregivers and representatives has been obtained from the patient. N/A * Community resources currently utilized None * Please name any agencies selected above. NONE * Additional services required to return to the preadmission environment? Yes * Can the patient safely return to the preadmission environment? No * Has this patient been hospitalized within the prior 30 days at any hospital? Yes External Providers External Provider: [facility] [facility] Next Contact Date: Service Request Date: Service Type: Resolution: Reviewer: Comments: Last DP export: 12/05/19 12:23 p Patient Name: MARY MABRY Page [phone] at 1439 All edits/amendments must be made on the electronic document DICTATION DATE: 12/05/191437 ASSEMBLER RADIO AND ELECTRICAL: RAUL 12/05/191437 RPT#: [id number] DC DATE: STATUS: ADM IN [facility] [address] [place] [address] END OF REPORT
--- NOTE | 2019-12-05 14:47 | MORECARE ---
CASE MANAGEMENT DISCHARGE SUMMARY PATIENT: MARY MABRY UNIT: [id number] ADM DATE: 11/28/19 AGE: 79 : 38 SEX: F ROOM/BED: [facility] AUTHOR: JESUS,DOC PHYSICIAN: REFERRING PHYSICIAN: MEET ELAM MD DATE OF SERVICE: 12/05/19 Discharge Plan Patient Name: MARY MABRY Facility: [facility]:[place] : 1940 Planned Disposition: Long Term Facility Anticipated Discharge Date: Discharge Date: Expected LOS: Initial Reviewer: [email or web address] Initial Review Date: 11/29/2019 Generated: 12/05/19 3:47 pm Comments DCP- Discharge Planning Updated by [id number]: Shannon Singleton on 12/05/19 1:[address] CM spoke with Dr. Noel and patient's daughter Apolinar and consent given to move forward with Hospice. KEV completed for [facility]. CM called Cliff with [facility] and faxed records. CM will continue to follow and assist as needed with discharge planning / needs. DCP- Discharge Planning Updated by [email or web address]: Shannon Singleton on 12/04/19 3:[address] CM received an order for Hospice. CM spoke with nursing and at this time family is waiting on some results and to speak with Dr. Nishant rivers before going forward with hospice. CM will continue to follow and assist as needed with discharge planning / needs. DCP- Discharge Planning Updated by [email or web address]: Nishant Carter on 11/29/19 10:[address] Patient Name: MARY MABRY Admission Status: Elective Accout number: [id number] Admission Date: 11-28-2019 : 1940 Admission Diagnosis: Attending: PHILIP ELAM Current LOS: 1 Anticipated DC Date: Planned Disposition: Long Term Facility Primary Insurance: MEDICARE A & B PLANNED EXTERNAL PROVIDER: TO BE DETERMINED Discharge Planning Comments: CM RECEIVED REQUEST TO MEET WITH PT'S DAUGHTER AND SON IN LAW IN ROOM. CM MET WITH APOLINAR SIFUENTES AND HER SPOUSE IN PT'S ROOM. PT WAS BREATING, EYES OPEN AND STARING AT CEILING. PT'S DAUGHTER REPORTS PT WAS IN INPATIENT REHAB AND BECAME UNRESPONSIVE AND THEY DON'T KNOW WHY. THEY ASKED TO SEE THE CM BECAUSE NOTHING SEEMS TO BE GOING ON AND THEY WANT TO KNOW WHAT HAS HAPPENED TO PT. CM REVIEWED CHART, INFORMED FAMILY THAT THERE WAS NOTHING THAT CM COULD TELL THEM MEDICALLY IT APPEARS THAT THE MEDICAL TEAM IS STILL IN THE PROCESS OF TESTING AND DIAGNOSIS. CM DISCUSSED DISCHARGE PLANNING; FAMILY DOES NOT FEEL THAT PT WILL BE ABLE TO RETURN TO INPATIENT REHAB AND ASKED WHAT OTHER OPTIONS THERE WERE. CM DISCUSSED NEED FOR MEDICAL TEAM TO EVALUATE AND TREAT THE PATIENT TO DETERMINE WHAT LEVEL OF FUNCTIONING MAY RETURN TO BETTER DETERMINE WHAT LEVEL OF CARE PT WILL NEED AT DISCHARGE. 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 FAMILY WOULD LIKE TO SPEAK TO SOMEONE TO UPDATE THEM ON TESTING AND MEDICAL CONDITION. CM NOTIFED NURSE AND JORGE TOBIAS. CM TO FOLLOW AND ASSIST WITH DISCHARGE PLANNING. Soil Conservation Technician: Nishant Carter DCPIA - Discharge Planning Initial Assessment Updated by [email or web address]: Nishant Carter on 11/29/19 10:59 am * Is the patient Alert and Oriented? No * How many steps to enter\exit or inside your home? RAMP * PCP DR ORTEGA * [facility] * Preadmission Environment Acute Inpatient Rehab * Facility Name [facility] IN[facility] * ADLs Partial Dependent * Partial ADLs (Assistance needed) Ambulation Bathing Dressing Medication Management Toileting Transfers * Equipment Walker * Other Equipment NO MEDICAL EQUIPMENT PROVIDER PREFERENCE * List name and contact numbers for known caregivers / representatives who currently or will assist patient after discharge: APOLINAR SIFUENTES DTKimberly, * Verbal permission to speak to the caregivers and representatives has been obtained from the patient. N/A * Community resources currently utilized None * Please name any agencies selected above. NONE * Additional services required to return to the preadmission environment? Yes * Can the patient safely return to the preadmission environment? No * Has this patient been hospitalized within the prior 30 days at any hospital? Yes Last DP export: 12/05/19 1:39 p Patient Name: MARY MABRY Page [phone] at 1447 All edits/amendments must be made on the electronic document DICTATION DATE: 12/05/197 PRINCIPAL CLERK TYPIST: RAUL 12/05/197 RPT#: [id number] DC DATE: STATUS: ADM IN [facility] [address] [facility] [place] [address] END OF REPORT
--- NOTE | 2019-12-05 15:08 | NUR ---
DERRICK WITH HOSPICE HERE, STATED THEY WILL ADMIT WHEN FAMILY SIGNS PAPERWORK
--- NOTE | 2019-12-05 18:14 | NUR ---
PT REPOSITIONED WITH ORAL CARE EVERY 2 HOURS AND PRN, DAUGHTER HERE AND UPDATED, DENIES ALL NEEDS, WILL CONTINUE TO MONITOR
--- NOTE | 2019-12-05 19:00 | NUR ---
PT ASSESSMENT COMPLETED AT THIS TIME, NO CHANEGS NOTED FROM NURSE REPORT, PT ONLY RESPONDS TO PAINFUL STIMULATION, WITH SLIGHT WITHDRAWAL. VSS AT THIS TIME, HOSPICE NURSE DERRICK IS HERE AND ADVISED THAT SHE IS WAITING ON ADDITIONAL PAPER WORK TO COMPLETE THE HOPSICE ACCEPTANCE, WILL MONITOR FOR CHANGES
--- NOTE | 2019-12-05 21:08 | NUR ---
HOPSICE NURSE GABBY GRAY CALLED BACK AND ADVISED THAT THE PAPER WORK WAS NOT COMPLETED AND SHE WAS UPDATE STAFF WHEN IT WA COMPLETED TO PROCEED WITH HOPSICE ADMISSION
--- NOTE | 2019-12-05 23:00 | NUR ---
PT REASSESSMENT COMPLETED AT THIS TIME, NO CHANGES NOTED FROM PERVIOUS EXAM, WILL MONITOR FOR CHANGES
[2019-12-06] VITALS (11 sets, daily range): BP systolic 87–127; BP diastolic 36–77
--- NOTE | 2019-12-06 01:04 | NUR ---
2300 PT REASSESSMENT COMPLETED AT THIS TIME, NO CHANGES NOTED FROM PREVIOUS EXAM, WILL MONITOR FOR CHANGES
--- NOTE | 2019-12-06 01:06 | NUR ---
PT STILL ONLY ONLY RESPONDING TO PAINFUL STIMULATION, VSS, WILL MONITOR FOR CHANGES
--- NOTE | 2019-12-06 03:00 | NUR ---
PT REASSESSMENT COMPLETED AT THIS TIME, PT IS MOVING ARMS AND MOANING TO STIMULATION, RESP RATE AND EFFORT INCREASED, NO OTHER CHANGES NOTED, VSS, WILL MONITOR FOR CHANGES
--- NOTE | 2019-12-06 05:00 | NUR ---
PT RESTING WITH EYES CLOSED, NO CHANGES NOTED, VSS WILL MONITOR FOR CHANGES
[2019-12-06 06:56] LABS: HEMATOCRIT 27.2 % (36.0-48.0); LYMPHOCYTES 14.8 % (15-50); MCH 29.7 pg (26.0-34.0); MCHC 33.1 g/dL (31.0-37.0); MCV 89.8 fL (80.0-100.0); MEAN PLATELET VOLUME 9.7 fL (7.4-10.4); NEUTROPHILS 72.1 % (40-80); PLATELET COUNT 196 10x3/uL (130-400); RBC 3.03 10x6/uL (4.00-5.40); RDW 13.2 % (11.5-14.5); WBC 8.7 10x3/uL (4.8-10.8)
[2019-12-06 07:01] LABS: ANION GAP 13.7 mmol/L (8-16); BILIRUBIN - TOTAL 0.16 mg/dL (0.2-1.3); CALCIUM 8.1 mg/dL (8.5-10.1); CARBON DIOXIDE 19.9 mmol/L (21.0-32.0); CREATININE - SERUM 2.5 mg/dL (0.6-1.3); POTASSIUM - SERUM 3.6 mmol/L (3.5-5.1); PROTEIN - SERUM 4.7 g/dL (6.4-8.2)
--- NOTE | 2019-12-06 08:53 | NUR ---
0700 repositioned, oral care done, no signs of pain, will continue to monitor 0850 repositioned, oral care done
--- NOTE | 2019-12-06 09:36 | NUR ---
HOSPICE NURSE DERRICK HERE STATED THEY ARE OFFICIALLY ADMITTING PT TO INPT HOSPICE
--- NOTE | 2019-12-06 15:29 | MORECARE ---
CASE MANAGEMENT DISCHARGE SUMMARY PATIENT: MARY MABRY UNIT: [id number] ADM DATE: 11/28/19 AGE: 79 : 38 SEX: F [facility] AUTHOR: JESUS,DOC PHYSICIAN: REFERRING PHYSICIAN: MEET ELAM MD DATE OF SERVICE: 12/06/19 Discharge Plan Patient Name: MARY MABRY Facility: [facility]:[place] : 1940 Planned Disposition: Shelter Facility Anticipated Discharge Date: Discharge Date: 12/06/2019 Expected LOS: Initial Reviewer: [email or web address] Initial Review Date: 11/29/2019 Generated: 12/06/19 4:29 pm Comments DCP- Discharge Planning Updated by [id number]: Shannon Singleton on 12/06/19 2:[address] Patient Name: MARY MABRY Encounter No: [id number] : 1940 Primary Insurance: MEDICARE A & B Anticipated DC Date: Planned Disposition: Shelter Facility External Planned Provider: : [facility] DCP follow-up note: Patient and family in agreement with discharge plan. No changes to plan. Case management will follow and assist as needed. DISCHARGED TO INPATIENT HOSPICE CARE Shannon Singleton DCP- Discharge Planning Updated by [email or web address]: Shannon Singleton on 12/05/19 1:[address] CM spoke with Dr. Noel and patient's daughter Apolinar and consent given to move forward with Hospice. KEV completed for [facility]. CM called Sreedhar with [facility] and faxed records. CM will continue to follow and assist as needed with discharge planning / needs. DCP- Discharge Planning Updated by [email or web address]: Shannon Singleton on 12/04/19 3:[address] CM received an order for Hospice. CM spoke with nursing and at this time family is waiting on some results and to speak with Dr. Nishant rivers before going forward with hospice. CM will continue to follow and assist as needed with discharge planning / needs. DCP- Discharge Planning Updated by [email or web address]: Nishant Carter on 11/29/19 10:[address] Patient Name: MARY MABRY Admission Status: Elective Accout number: [id number] Admission Date: 11-28-2019 : 1940 Admission Diagnosis: Attending: PHILIP ELAM Current LOS: 1 Anticipated DC Date: Planned Disposition: Shelter Facility Primary Insurance: MEDICARE A & B PLANNED EXTERNAL PROVIDER: TO BE DETERMINED Discharge Planning Comments: CM RECEIVED REQUEST TO MEET WITH PT'S DAUGHTER AND SON IN LAW IN ROOM. CM MET WITH APOLINAR SIFUENTES AND HER SPOUSE IN PT'S ROOM. PT WAS BREATING, EYES OPEN AND STARING AT CEILING. PT'S DAUGHTER REPORTS PT WAS IN INPATIENT REHAB AND BECAME UNRESPONSIVE AND THEY DON'T KNOW WHY. THEY ASKED TO SEE THE CM BECAUSE NOTHING SEEMS TO BE GOING ON AND THEY WANT TO KNOW WHAT HAS HAPPENED TO PT. CM REVIEWED CHART, INFORMED FAMILY THAT THERE WAS NOTHING THAT CM COULD TELL THEM MEDICALLY IT APPEARS THAT THE MEDICAL TEAM IS STILL IN THE PROCESS OF TESTING AND DIAGNOSIS. CM DISCUSSED DISCHARGE PLANNING; FAMILY DOES NOT FEEL THAT PT WILL BE ABLE TO RETURN TO INPATIENT REHAB AND ASKED WHAT OTHER OPTIONS THERE WERE. CM DISCUSSED NEED FOR MEDICAL TEAM TO EVALUATE AND TREAT THE PATIENT TO DETERMINE WHAT LEVEL OF FUNCTIONING MAY RETURN TO BETTER DETERMINE WHAT LEVEL OF CARE PT WILL NEED AT DISCHARGE. CM DISCUSSED PRISON FACILITY REHAB, [facility] MESS ATTENDANT CARE AND HOSPICE. FAMILY WOULD LIKE TO SPEAK TO SOMEONE TO UPDATE THEM ON TESTING AND MEDICAL CONDITION. CM NOTIFED NURSE AND JORGE TOBIAS. CM TO FOLLOW AND ASSIST WITH DISCHARGE PLANNING. Commercial Lender: Nishant Carter DCPIA - Discharge Planning Initial Assessment Updated by [id number]: Nishant Carter on 11/29/19 10:59 am * Is the patient Alert and Oriented? No * How many steps to enter\exit or inside your home? RAMP * PCP DR ORTEGA * [facility] * Preadmission Environment Acute Inpatient Rehab * Facility Name [facility] * ADLs Partial Dependent * Partial ADLs (Assistance needed) Ambulation Bathing Dressing Medication Management Toileting Transfers * Equipment Walker * Other Equipment NO MEDICAL EQUIPMENT PROVIDER PREFERENCE * List name and contact numbers for known caregivers / representatives who currently or will assist patient after discharge: APOLINAR SIFUENTES, ULYSSES, * Verbal permission to speak to the caregivers and representatives has been obtained from the patient. N/A * Community resources currently utilized None * Please name any agencies selected above. NONE * Additional services required to return to the preadmission environment? Yes * Can the patient safely return to the preadmission environment? No * Has this patient been hospitalized within the prior 30 days at any hospital? Yes Coverage Notice Reviewer: [email or web address] Rachael Singleton Notice Issued Date-Time: 12/05/2019 11:00 Notice Type: Patient Choice Letter Notice Delivered To: Family Member Relationship to Patient: Daughter Contract Administrator Name: APOLINAR SIFUENTES Delivery Method: HAND - Hand Delivered Cadence Days: Prior Verbal Notification: Recipient Understood Notice: Yes Recipient Signature: Yes Med Rec Note Co-signed by Attending: Coverage Notice Comment: [facility] Last DP export: 12/05/19 1:47 p Patient Name: MARY MABRY Page 33088 at 1529 All edits/amendments must be made on the electronic document DICTATION DATE: 12/06/19 1529 DEVELOPMENT CHEMIST: RAUL 12/06/19 1529 RPT#: [id number] DC DATE:12/06/19 STATUS: DIS IN [facility] [address] [place] [address] END OF REPORT
--- NOTE | 2019-12-06 15:38 | MORECARE ---
CASE MANAGEMENT DISCHARGE SUMMARY PATIENT: MARY MABRY UNIT: [id number] ADM DATE: 11/28/19 AGE: 79 : 38 SEX: F [facility] AUTHOR: JESUS,DOC PHYSICIAN: REFERRING PHYSICIAN: MEET ELAM MD DATE OF SERVICE: 12/06/19 Discharge Plan Patient Name: MARY MABRY Facility: [facility]:[place] : 1940 Planned Disposition: [facility] Facility Anticipated Discharge Date: Discharge Date: 12/06/2019 Expected LOS: Initial Reviewer: [id number] Initial Review Date: 11/29/2019 Generated: 12/06/19 4:37 pm Comments DCP- Discharge Planning Updated by [email or web address]: Shannon Singleton on 12/06/19 2:[address] Patient Name: MARY MABRY Encounter No: [id number] : 1940 Primary Insurance: MEDICARE A & B Anticipated DC Date: Planned Disposition: [facility] Facility External Planned Provider: : [facility] DCP follow-up note: Patient and family in agreement with discharge plan. No changes to plan. Case management will follow and assist as needed. DISCHARGED TO INPATIENT HOSPICE CARE Shannon Singleton DCP- Discharge Planning Updated by [email or web address]: Shannon Singleton on 12/05/19 1:[address] CM spoke with Dr. Noel and patient's daughter Apolinar and consent given to move forward with Hospice. KEV completed for [facility]. CM called Sreedhar with [facility] and faxed records. CM will continue to follow and assist as needed with discharge planning / needs. DCP- Discharge Planning Updated by [id number]: Shannon Singleton on 12/04/19 3:[address] CM received an order for Hospice. CM spoke with nursing and at this time family is waiting on some results and to speak with Dr. Nishant rivers before going forward with hospice. CM will continue to follow and assist as needed with discharge planning / needs. DCP- Discharge Planning Updated by [email or web address]: Nishant Carter on 11/29/19 10:[address] Patient Name: MARY MABRY Admission Status: Elective Accout number: [id number] Admission Date: 11-28-2019 : 1940 Admission Diagnosis: Attending: PHILIP ELAM Current LOS: 1 Anticipated DC Date: Planned Disposition: [facility] Facility Primary Insurance: MEDICARE A & B PLANNED EXTERNAL PROVIDER: TO BE DETERMINED Discharge Planning Comments: CM RECEIVED REQUEST TO MEET WITH PT'S DAUGHTER AND SON IN LAW IN ROOM. CM MET WITH APOLINAR SIFUENTES AND HER SPOUSE IN PT'S ROOM. PT WAS BREATING, EYES OPEN AND STARING AT CEILING. PT'S DAUGHTER REPORTS PT WAS IN INPATIENT REHAB AND BECAME UNRESPONSIVE AND THEY DON'T KNOW WHY. THEY ASKED TO SEE THE CM BECAUSE NOTHING SEEMS TO BE GOING ON AND THEY WANT TO KNOW WHAT HAS HAPPENED TO PT. CM REVIEWED CHART, INFORMED FAMILY THAT THERE WAS NOTHING THAT CM COULD TELL THEM MEDICALLY IT APPEARS THAT THE MEDICAL TEAM IS STILL IN THE PROCESS OF TESTING AND DIAGNOSIS. CM DISCUSSED DISCHARGE PLANNING; FAMILY DOES NOT FEEL THAT PT WILL BE ABLE TO RETURN TO INPATIENT REHAB AND ASKED WHAT OTHER OPTIONS THERE WERE. CM DISCUSSED NEED FOR MEDICAL TEAM TO EVALUATE AND TREAT THE PATIENT TO DETERMINE WHAT LEVEL OF FUNCTIONING MAY RETURN TO BETTER DETERMINE WHAT LEVEL OF CARE PT WILL NEED AT DISCHARGE. CM DISCUSSED [facility], [facility] AND HOSPICE. FAMILY WOULD LIKE TO SPEAK TO SOMEONE TO UPDATE THEM ON TESTING AND MEDICAL CONDITION. CM NOTIFED NURSE AND JORGE TOBIAS. CM TO FOLLOW AND ASSIST WITH DISCHARGE PLANNING. Alining Inspector: Nishant Carter DCPIA - Discharge Planning Initial Assessment Updated by [email or web address]: Nishant Carter on 11/29/19 10:59 am * Is the patient Alert and Oriented? No * How many steps to enter\exit or inside your home? RAMP * PCP DR ORTEGA * Pharmacy [facility] * Preadmission Environment Acute Inpatient Rehab * Facility Name [facility] * ADLs Partial Dependent * Partial ADLs (Assistance needed) Ambulation Bathing Dressing Medication Management Toileting Transfers * Equipment Walker * Other Equipment NO MEDICAL EQUIPMENT PROVIDER PREFERENCE * List name and contact numbers for known caregivers / representatives who currently or will assist patient after discharge: APOLINAR SIFUENTES, ULYSSES, * Verbal permission to speak to the caregivers and representatives has been obtained from the patient. N/A * Community resources currently utilized None * Please name any agencies selected above. NONE * Additional services required to return to the preadmission environment? Yes * Can the patient safely return to the preadmission environment? No * Has this patient been hospitalized within the prior 30 days at any hospital? Yes Coverage Notice Reviewer: [id number] Rachael Singleton Notice Issued Date-Time: 12/05/2019 11:00 Notice Type: Patient Choice Letter Notice Delivered To: Family Member Relationship to Patient: Daughter Surgical Clinical Reviewer Name: APOLINAR SIFUENTES Delivery Method: HAND - Hand Delivered Cadence Days: Prior Verbal Notification: Recipient Understood Notice: Yes Recipient Signature: Yes Med Rec Note Co-signed by Attending: Coverage Notice Comment: [facility] Last DP export: 12/06/19 2:29 p Patient Name: MARY MABRY Page [id number] at 1538 All edits/amendments must be made on the electronic document DICTATION DATE: 12/06/19 1537 REGIONAL PROJECT MANAGER: RAUL 12/06/19 1537 RPT#: [id number] DC DATE:12/06/19 STATUS: DIS IN [facility] [address] [place] [address] END OF REPORT
== END 2019-12-06 09:38 | disposition hospice, inpatient (51) | DRG 70 ==
LOC: D.M2 12:04 → D.CVICU 13:40 → D.M2 13:40 → D.ICU 13:40 → D.MS 13:40 → D.M2 11-29 03:17 → D.ICU 11-29 13:49 → D.CVICU 11-30 18:46
PROVIDERS: Emergency Medicine; Family Medicine; Radiology Diagnostic Radiology; ADMIT Emergency Medicine; ATTEND Emergency Medicine
PROC: 009U3ZZ Drainage of Spinal Canal, Percutaneous Approach (ICD-10-PCS; principal; 2019-11-29)
PROC: B01B1ZZ Fluoroscopy of Spinal Cord using Low Osmolar Contrast (ICD-10-PCS; 2019-11-29)
DX: G93.41 Metabolic encephalopathy (principal); R53.2 Functional quadriplegia; R40.2213 Coma scale, best verbal response, none, at hospital admission; R40.2343 Coma scale, best motor response, flexion withdrawal, at hospital admission; J81.1 Chronic pulmonary edema; N17.9 Acute kidney failure, unspecified; E44.0 Moderate protein-calorie malnutrition; I16.1 Hypertensive emergency; E87.0 Hyperosmolality and hypernatremia; I24.8 Other forms of acute ischemic heart disease; R33.9 Retention of urine, unspecified; D64.9 Anemia, unspecified; E11.22 Type 2 diabetes mellitus with diabetic chronic kidney disease; I12.9 Hypertensive chronic kidney disease with stage 1 through stage 4 chronic kidney disease, or unspecified chronic kidney disease; N18.9 Chronic kidney disease, unspecified; F03.90 Unspecified dementia, unspecified severity, without behavioral disturbance, psychotic disturbance, mood disturbance, and anxiety; Z68.26 Body mass index [BMI] 26.0-26.9, adult; I48.91 Unspecified atrial fibrillation; E87.6 Hypokalemia; R40.2143 Coma scale, eyes open, spontaneous, at hospital admission

== ENCOUNTER 2019-12-06 09:45 | Inpatient (IN) | payer OTHER ==
[~2019-12-06] VITALS: Ht 157.5 cm; Wt 65.5 kg
[2019-12-06 10:00] VITALS: BP 79/42
[2019-12-06 10:01] VITALS: BP 90/52; BMI 26.4
[2019-12-06 11:00] VITALS: BP 97/56
[2019-12-06 12:41] VITALS: BP 103/60
--- NOTE | 2019-12-06 16:19 | MORECARE ---
CASE MANAGEMENT DISCHARGE SUMMARY PATIENT: MARY MABRY UNIT: [id number] ADM DATE: 12/06/19 AGE: 79 : 38 SEX: F ROOM/BED: D.2209 AUTHOR: ANH LEE PHYSICIAN: REFERRING PHYSICIAN: REBECA ARDON MD DATE OF SERVICE: 12/06/19 Discharge Plan Patient Name: MARY MABRY Facility: [facility]:[place] : 1940 Planned Disposition: Anticipated Discharge Date: Discharge Date: Expected LOS: Initial Reviewer: [email or web address] Initial Review Date: 12/06/2019 Generated: 12/06/19 5:19 pm Patient Name: MARY MABRY Page [id number] at 1619 All edits/amendments must be made on the electronic document DICTATION DATE: 12/06/191618 PRODUCTION TEAM MEMBER: RAUL 12/06/19 1619 RPT#: [id number] DC DATE: STATUS: ADM IN [facility] [address] [place] [address] END OF REPORT
[2019-12-06 17:45] VITALS: Ht 157.5 cm; Wt 65.5 kg
[2019-12-06 20:00] VITALS: BP 115/52
[2019-12-07 07:29] VITALS: BP 141/71
--- NOTE | 2019-12-07 09:57 | MORECARE ---
CASE MANAGEMENT DISCHARGE SUMMARY PATIENT: MARY MABRY UNIT: [id number] ADM DATE: 12/06/19 AGE: 79 : 38 SEX: F ROOM/BED: D.2209 AUTHOR: ANH LEE PHYSICIAN: REFERRING PHYSICIAN: REBECA ARDON MD DATE OF SERVICE: 12/07/19 Discharge Plan Patient Name: MARY MABRY Facility: [facility]:[place] : 1940 Planned Disposition: Anticipated Discharge Date: Discharge Date: Expected LOS: Initial Reviewer: [email or web address] Initial Review Date: 12/06/2019 Generated: 12/07/19 10:56 am Comments DCP- Discharge Planning Updated by [email or web address]: Rosemarie Landeros on 12/07/19 8:[address] Patient Name: MARY MABRY Admission Status: Elective Accout number: [id number] Admission Date: 12-06-2019 : 1940 Admission Diagnosis: Attending: REBECA ARDON Current LOS: 1 Anticipated DC Date: Planned Disposition: Primary Insurance: [facility] Discharge Planning Comments: CM met with daughter in the room. Daughter is crying and I informed her if she had any needs to let us know. Patient is unresponsive and on [facility]. CM will continue to follow and assist with DC planning/needs. Acid Condenser: Rosemarie Landeros Last DP export: 12/06/19 3:19 p Patient Name: MARY MABRY Page [id number] at 0957 All edits/amendments must be made on the electronic document DICTATION DATE: 12/07/1956 TOP TILE DECORATOR: RAUL 12/07/1956 RPT#: [id number] DC DATE: STATUS: ADM IN [facility] [address] [place] [address] END OF REPORT
[2019-12-07 22:42] VITALS: BP 105/57
[2019-12-08 08:41] VITALS: BP 92/49
--- NOTE | 2019-12-08 19:21 | MORECARE ---
CASE MANAGEMENT DISCHARGE SUMMARY PATIENT: MARY MABRY UNIT: [id number] ADM DATE: 12/06/19 AGE: 79 : 38 SEX: F ROOM/BED: D.2209 AUTHOR: ANH LEE PHYSICIAN: REFERRING PHYSICIAN: REBECA ARDON MD DATE OF SERVICE: 12/08/19 Discharge Plan Patient Name: MARY MABRY Facility: [facility]:[place] : 1940 Planned Disposition: Anticipated Discharge Date: Discharge Date: Expected LOS: Initial Reviewer: [email or web address] Initial Review Date: 12/06/2019 Generated: 12/08/19 8:21 pm Comments DCP- Discharge Planning Updated by [email or web address]: Rosemarie Landeros on 12/07/19 8:[address] Patient Name: MARY MABRY Admission Status: Elective Accout number: [id number] Admission Date: 12-06-2019 : 1940 Admission Diagnosis: Attending: REBECA ARDON Current LOS: 1 Anticipated DC Date: Planned Disposition: Primary Insurance: [facility] Discharge Planning Comments: CM met with daughter in the room. Daughter is crying and I informed her if she had any needs to let us know. Patient is unresponsive and on [facility]. CM will continue to follow and assist with DC planning/needs. Digital Camera Technician: Rosemarie Landeros Last DP export: 12/07/19 8:57 a Patient Name: MARY MABRY Page [id number] at 192 All edits/amendments must be made on the electronic document DICTATION DATE: 12/08/191920 RESEARCH SOIL SCIENTIST: RAUL 12/08/191920 RPT#: [id number] DC DATE: STATUS: ADM IN [facility] [address] [place] [address] END OF REPORT
== END 2019-12-08 19:00 | DRG 951 ==
LOC: D.MS 09:45 → D.CVICU 09:45 → D.MS 11:32
PROVIDERS: ADMIT Legal Medicine; ATTEND Legal Medicine
DX: Z51.5 Encounter for palliative care (principal)